=== PATIENT | female | born 1955 | race Caucasian/White ===

== ENCOUNTER 2016-09-29 08:00 | Day surgery (SDC) | payer MEDICARE, OTHER ==
[2016-09-23 15:43] VITALS: BMI 52.4
--- NOTE | 2016-09-29 07:41 | P.GSHP ---
History of Present Illness H&P Date: 09/29/16 CHIEF COMPLAINT: Colon cancer. HISTORY OF PRESENT ILLNESS: The patient is a 60-year-old female who has personal history of stage III colon cancer diagnosed, 2 years ago status post resection. Lower endoscopy was offered for further evaluation and management. PAST MEDICAL HISTORY: Please see list. PAST SURGICAL HISTORY: Please see list. MEDICATIONS: Please see list. ALLERGIES: Please see list. SOCIAL HISTORY: No illicit drug use FAMILY HISTORY: No reports of Crohn disease or ulcerative colitis. REVIEW OF ORGAN SYSTEMS: CONSTITUTIONAL: No reports of fevers or chills. PHYSICAL EXAM: VITAL SIGNS: Stable GENERAL: Well-developed pleasant in no acute distress. HEENT: No scleral icterus. Extraocular movements grossly intact. Moist buccal mucosa. NECK: Supple without lymphadenopathy. CHEST: Unlabored respirations. Equal bilateral excursions. CARDIOVASCULAR: Regular rate and rhythm. Distal 2+ pulses. ABDOMEN: Soft, nontender, nondistended. MUSCULOSKELETAL: No clubbing, cyanosis, or edema. ASSESSMENT: 1. Colon cancer surveillance. PLAN: 1. Recommend proceeding with a lower endoscopy Past Medical History Past Medical History: Cancer, Heart Failure, Fibromyalgia, GERD/Reflux, Hypertension, Liver Disease, Osteoarthritis (OA), Seizure Disorder, Sleep Apnea/ CPAP/BIPAP Additional Past Medical History / Comment(s): HX BRADYCARDIA. HX HEP C 1998. HX MIGRAINE. HX SEIZURE, LAST ONE 2002 (states she feels it was from prozac). OCCIPITAL NERVE DAMAGE PER MRI. HX CERVICAL/UTERINE CA; RECENT COLON CA AUG 2014-last chemo 03-27-15. UNABLE TO USE CPAP. osteoporosis History of Any Multi-Drug Resistant Organisms: None Reported Past Surgical History: Bowel Resection, Cholecystectomy, Hysterectomy, Orthopedic Surgery Additional Past Surgical History / Comment(s): RT FOOT BONE SPUR, L KNEE MENISCUS SX, RT INDEX FINGER TENDON REPAIR. COLON RESECTION 09/03/14. lt power port placement & removed,rt power port inserted and removed Past Anesthesia/Blood Transfusion Reactions: No Reported Reaction, Family History of Problems w/ Anesthesia Additional Past Anesthesia/Blood Transfusion Reaction / Comment(s): pt herself has no problems with anethesia, CORRINE AND MOTHER GET SEVERE PONV. Past Psychological History: Anxiety Smoking Status: Former smoker Past Alcohol Use History: None Reported Additional Past Alcohol Use History / Comment(s): QUIT SMOKING 1980,STARTED SMOKING 1967 ON AND OFF Past Drug Use History: None Reported Additional Drug Use History / Comment(s): STATES PAST HX OF STREET DRUG ABUSE, LAST USED IN 1980 - Past Family History Mother Family Medical History: Cancer Additional Family Medical History / Comment(s): THYROID, BREAST,LUNG,BONE,BRAIN Daughter(s) Family Medical History: Cancer Additional Family Medical History / Comment(s): UTERINE, CERVICAL Medications and Allergies Home Medications Medication Instructions Recorded Confirmed Type LORazepam [Ativan] 0.5 mg PO BID 08/29/14 09/23/16 History Lisinopril [Prinivil] 20 mg PO HS 08/29/14 09/23/16 History Topiramate [Topamax] 25 mg PO BID 08/29/14 09/23/16 History Sucralfate [Carafate] 1 gm PO BID 04/03/15 09/23/16 History Amitriptyline HCl [Elavil] 25 mg PO HS 09/01/15 09/23/16 History Furosemide [Lasix] 20 mg PO DAILY 09/01/15 09/23/16 History Cholecalciferol [Vitamin D3] 1,000 unit PO HS 09/22/15 09/23/16 History Magnesium 200 mg PO HS 09/23/16 09/23/16 History Allergies Allergy/AdvReac Type Severity Reaction Status Date / Time fluoxetine Allergy WGT GAIN, Verified 09/23/16 15:29 CONFUSION, NAUSEA gabapentin Allergy Confusion,and Verified 09/23/16 15:29 weight gain methylphenidate HCl Allergy Confusion Verified 09/23/16 15:29 [From Concerta] and wt gain pregabalin [From Lyrica] Allergy Confusion,a Verified 09/23/16 15:29 ggresion
[~2016-09-29 08:00] MED LIST: LACTATED RINGERS 1,000 ML IV SCH
[2016-09-29] MEDS ORDERED: LIDOCAINE 1% 20 ML VIAL (10MG/ML) FOR IV START INTRADERMA ONE (08:22)
[2016-09-29 08:30] VITALS: TEMP 97
[2016-09-29] MEDS ORDERED: LIDOCAINE 1% INJ 10MG/ML (20 ML MDV) ONE (08:42)
[2016-09-29] MEDS ORDERED: PROPOFOL 10 MG/ML 20 ML VIAL IV ONE (08:42)
[2016-09-29] MEDS ORDERED: MIDAZOLAM 2 MG/2 ML VIAL ONE (08:42)
--- NOTE | 2016-09-29 09:14 | P.PCN ---
Date of Procedure: 09/29/16 Description of Procedure: PREOPERATIVE DIAGNOSIS: History of stage III colon cancer, transverse colon, status post resection, 2014. POSTOPERATIVE DIAGNOSIS: History of stage III colon cancer, transverse colon, status post resection, 2014. Diverticulosis, scattered. OPERATION: Colonoscopy to the ileocecal valve and appendiceal orifice. SURGEON: Colleen Mackenzie MD. ANESTHESIA: MAC. INDICATIONS: The patient is a 60-year-old female who presents with history of stage III colon cancer along the transverse mesocolon resected in August 2014. She now presents for colon surveillance. Her last colonoscopy was 1 year ago. Benefits and risks were described and informed consent was obtained. DESCRIPTION OF PROCEDURE: The patient had undergone Gatorade, MiraLAX and Dulcolax prep. She had been brought into the operating room and laid in the left lateral decubitus position. After adequate intravenous sedation, the rectum was examined with 2% lidocaine jelly. No external hemorrhoids were encountered. The rectal tone was within normal limits. No lesions were palpated in the rectal vault. An Olympus colonoscope was advanced until the ileocecal valve and appendiceal orifice were clearly viewed. The prep was fair with liquid stools. Irrigation was needed to have clear visualization of the mucosal folds. The scope was removed with visualization of each mucosal fold. Scattered diverticulosis was encountered. No colonic polyps were found. No recurrence found along her anastomosis. Retroflexion of the scope demonstrated grade 1 internal hemorrhoids without active bleeding or inflammation. The colon was desufflated. The patient had tolerated the procedure well. Withdrawal time was over 6 minutes. FINDINGS: Internal hemorrhoids, grade 1 No external prolapsed hemorrhoids. No arteriovenous malformations. No adenomatous polyps. Scattered diverticulosis. No focal colitis. RECOMMENDATIONS: Lower endoscopy in one year, 2018. Plan - Discharge Summary Discharge Medication List LORazepam [Ativan] 0.5 mg PO BID 08/29/14 [History] Lisinopril [Prinivil] 20 mg PO HS 08/29/14 [History] Topiramate [Topamax] 25 mg PO BID 08/29/14 [History] Sucralfate [Carafate] 1 gm PO BID 04/03/15 [History] Furosemide [Lasix] 20 mg PO DAILY 09/01/15 [History] Cholecalciferol [Vitamin D3] 1,000 unit PO HS 09/22/15 [History] HYDROcodone/APAP 7.5-325MG [[place] 7.5-325] 1 each PO Q4H PRN #60 tab 10/03/15 [ Rx] Magnesium 200 mg PO HS 09/23/16 [History] Nortriptyline HCl [Pamelor] 25 mg PO HS 09/29/16 [History] Follow up Appointment(s)/Referral(s): Colleen Mackenzie MD [STAFF PHYSICIAN] - As Needed Patient Instructions/Handouts: *Surgery [facility] - (Anesthesia) Endoscopy Discharge Instructions Activity/Diet/Wound Care/Special Instructions: Follow-up colonoscopy in one year, 2018. Discharge Disposition: HOME SELF-CARE
[2016-09-29 09:18] VITALS: RESP 18
[2016-09-29 09:32] VITALS: BP 113/69; PULSE 72
== END 2016-09-29 09:48 | disposition home or self-care (01) ==
LOC: ORWHC2ENDO 08:00
PROVIDERS: ATTEND Surgery Plastic and Reconstructive Surgery
DX: Z12.11 Encounter for screening for malignant neoplasm of colon (principal); K57.30 Diverticulosis of large intestine without perforation or abscess without bleeding; K64.0 First degree hemorrhoids; K21.9 Gastro-esophageal reflux disease without esophagitis; I11.0 Hypertensive heart disease with heart failure; I50.9 Heart failure, unspecified; F41.9 Anxiety disorder, unspecified; G40.909 Epilepsy, unspecified, not intractable, without status epilepticus; Z85.038 Personal history of other malignant neoplasm of large intestine; Z88.8 Allergy status to other drugs, medicaments and biological substances; Z79.899 Other long term (current) drug therapy; Z87.891 Personal history of nicotine dependence; Z90.49 Acquired absence of other specified parts of digestive tract; Z98.0 Intestinal bypass and anastomosis status

== ENCOUNTER → 2016-11-09 | Outpatient (CLI) | payer MEDICARE, OTHER ==
--- NOTE | 2016-11-09 14:39 | CT ---
EXAMINATION TYPE: CT abdomen pelvis wo con DATE OF EXAM: 11/09/2016 2:33 PM COMPARISON: 05/13/2016 HISTORY: N28.[address] DLP: 3299.6 mGycm FINDINGS: LUNG BASES: Small stable 4 mm nodule lateral right middle lobe. No evidence for infiltrate. LIVER/GB: The gallbladder is surgically absent. Mild hepatic steatosis identified. No space-occupying hepatic lesion. PANCREAS: No pancreatic mass identified. No inflammatory process seen. SPLEEN: No evidence for splenomegaly. No intrasplenic lesions seen. ADRENALS: No adrenal nodules identified. No evidence for thickening. KIDNEYS: Large cyst upper pole right kidney measuring 7.5 cm. No nephrolithiasis. No hydronephrosis. BOWEL: Postsurgical reanastomosis at the level of the splenic flexure. No evidence of bowel obstructi on or recurrent mass. Appendix has a normal appearance. No evidence of bowel obstruction. No inflamma tory process. Lymph nodes: No evidence for adenopathy greater than 1 cm. Abdominal aorta: Atheromatous changes seen. No evidence for aneurysm. Genital organs: Hysterectomy changes noted. Other: No significant abnormality. IMPRESSION: 1. LARGE RIGHT RENAL CYST IS STABLE. 2. FATTY LIVER. 3. STABLE RIGHT MIDDLE LOBE PULMONARY NODULE.
== END | disposition home or self-care (01) ==
LOC: RADCTMAIN 14:09
PROVIDERS: ATTEND Surgery Plastic and Reconstructive Surgery
DX: N28.1 Cyst of kidney, acquired (principal); K76.0 Fatty (change of) liver, not elsewhere classified
CPT/HCPCS: 74176

== ENCOUNTER → 2016-11-09 | Outpatient (CLI) | payer MEDICARE, OTHER ==
--- NOTE | 2016-11-17 10:40 | MM ---
Reason for exam: screening (asymptomatic). Baseline mammogram. History: Patient is postmenopausal and has history of other cancer at age 39. Family history of breast cancer in aunt at age 50. Physical Findings: A clinical breast exam by your physician is recommended on an annual basis and results should be correlated with mammographic findings. MG 3D Screening Mammo W/Cad Bilateral CC and MLO view(s) were taken. Prior study comparison: August 22, 2015, mammogram, performed at [facility]. The breast tissue is heterogeneously dense. This may lower the sensitivity of mammography. Benign calcifications. There is no dominant lesion. There is chronic nodularity bilaterally. No significant changes when compared with prior studies. ASSESSMENT: Benign, BI-RAD 2 RECOMMENDATION: Routine screening mammogram of both breasts in 1 year.
== END | disposition home or self-care (01) ==
LOC: RADMAMWWP 14:32
PROVIDERS: ATTEND Internal Medicine
DX: Z12.31 Encounter for screening mammogram for malignant neoplasm of breast (principal)
CPT/HCPCS: 77063; G0202

== ENCOUNTER → 2017-04-29 | Outpatient (CLI) | payer MEDICARE, OTHER ==
--- NOTE | 2017-04-29 11:44 | CT ---
EXAMINATION TYPE: CT chest w con DATE OF EXAM: 04/29/2017 COMPARISON: CT chest abdomen and pelvis May 12, 2015 HISTORY: Solitary pulmonary nodule CT DLP: 2208.60 mGycm. Automated Exposure Control for Dose Reduction was Utilized. TECHNIQUE: CT scan of the thorax is performed following with IV Contrast, patient injected with 100 ml mL of Omnipaque 300. FINDINGS: LUNGS: There is stable 5 mm nodule right middle lobe on axial image 30. There is stable calcified 5 mm nodule left upper lobe on axial image 23. There is no new suspicious noncalcified mass or nodule. There is no pleural effusion or pneumothorax seen. The tracheobronchial tree is patent. MEDIASTINUM: There are no greater than 1 cm hilar or mediastinal lymph nodes. No cardiomegaly or pe ricardial effusion is seen. OTHER: Multiple cholecystectomy clips are seen. There is nearly 7 cm simple appearing cyst upper pole level right kidney redemonstrated. There is fairly moderate multilevel spurring in the visualized mi d thoracic spine. IMPRESSION: Stable 5 mm noncalcified nodule left upper lobe. Given documentation of 2 years stability and benign etiology or postinflammatory etiology is confirmed.
== END | disposition home or self-care (01) ==
LOC: RADCTMAIN 10:01
PROVIDERS: ATTEND Internal Medicine Critical Care Medicine
DX: R91.1 Solitary pulmonary nodule (principal); Z88.8 Allergy status to other drugs, medicaments and biological substances
CPT/HCPCS: 71260; Q9967

== ENCOUNTER → 2017-07-07 | Outpatient (CLI) | payer MEDICARE, OTHER ==
[2017-07-07 11:11] VITALS: BP 138/79; PULSE 88; RESP 20; TEMP 98.1; BMI 56.3
[2017-07-07 12:51] LABS: HCT 42.7 % (34.0-46.0); MCHC 32.8 g/dL (31.0-37.0); MCV 91.4 fL (80.0-100.0); Platelet Count 214 k/uL (150-450); RBC 4.67 m/uL (3.80-5.40); RDW 14.7 % (11.5-15.5); WBC 7.3 k/uL (3.8-10.6)
[2017-07-07 13:09] LABS: ALT 44 U/L (9-52); AST 32 U/L (14-36); Albumin 4.3 g/dL (3.5-5.0); Alkaline Phosphatase 77 U/L (38-126); Anion Gap 10 mmol/L; Blood Urea Nitrogen 14 mg/dL (7-17); Carbon Dioxide 26 mmol/L (22-30); Chloride 106 mmol/L (98-107); Cholesterol 171 mg/dL (<200); Glucose 85 mg/dL (74-99); HDL Cholesterol 45 mg/dL (40-60); LDL Cholesterol,Calculated 86 mg/dL (0-99); Sodium 142 mmol/L (137-145); Total Bilirubin 0.7 mg/dL (0.2-1.3); Total Protein 7.3 g/dL (6.3-8.2); Triglycerides 198 mg/dL (<150)
[2017-07-07 18:36] LABS: Iron Saturation 13.93 (12.00-45.00)
[2017-07-07 18:49] LABS: Vitamin D 25 Hydroxy 20.7 ng/mL (30.0-100.0)
[2017-07-07 18:56] LABS: Folate, Serum 14.3 ng/mL
[2017-07-07 22:29] LABS: Hemoglobin A1C 5.4 % (4.0-6.0)
--- NOTE | 2017-08-23 05:35 | P.HPBAR ---
Bariatric H&P - History & Physicial H&P Date: 07/07/17 History & Physicial: Visit/CC: pursuing RY Patient initial contact: 05/28/17 Initial weight: 140.84 kg Initial weight in pounds: 310.50 Height: 5 ft 2.25 in Initial BMI: 56.3 Last weight: Current weight: 140.84 kg Current weight in pounds: 310.50 Current BMI: 56.3 [place] body weight (based on NIH guidelines): 50.462 kg Excess body weight loss: 0.0% The patient is a 61 year-old F who presents for Bariatric Assessment. DATE OF SERVICE: 07/07/2017 REASON FOR CONSULTATION: Initial bariatric evaluation. HISTORY OF PRESENT ILLNESS: Lyndsay Morales is a 61-year-old male who comes in morbid obesity. Most of her adult life she was 117 pounds. Weight gain became prominent after depression and . She reports developing high blood pressure, osteoarthritis of the lower back including hips and knees and obstructive sleep apnea as a result of her obesity. She is looking into the gastric bypass. Her personal goal is to get down to 150 290 pounds. No family history of stomach or esophageal cancer. No reports of food ALLERGIES. No reports of Crohn's disease or ulcer colitis. She has a family history of obesity. She reports severe chronic lower back pain including hip pain and bilateral knee pain. She has undergone medical supervised weight loss including multiple attempts of weight loss in the past 5 years. Most weight loss has been over 40 pounds however now she has regained. She presents for her initial assessment. At height of 5 feet 2.25 inches, his ideal body weight is 135 pounds. She comes in 310 pounds. Her body mass index is 56.3. He is 175 pounds overweight. PAST MEDICAL HISTORY: 1. Morbid obesity. 2. Body mass index of 56.6 3. Osteoarthritis of the knees. 4. Osteoarthritis of the hips. 5. Osteoarthritis of the lower back. 6. Obstructive sleep apnea. 7. Hypertensive heart disease. 8. Heart failure. 9. Fibromyalgia. 10. Uterine cancer. 11. Colon cancer. 12. Gastroesophageal reflux disease. 13. Diaphragmatic hiatal hernia. 14. Hepatitis C. 15. Seizure disorder. 16. Osteoporosis. 17. Bradycardia. 18. Migraines. 19. Anxiety. PAST SURGICAL HISTORY: 1. Colon resection. 2. Ventral hernia repair. 3. Hysterectomy. 4. Cholecystectomy. 5. EGD. 6. Colonoscopy. 7. Left meniscus knee surgery. 8. Right index tendon repair. 9. Right bone spur. 10. History of chemotherapy. HOME MEDICATIONS: 1. Topamax. 2. Carafate. 3. Nortriptyline. 4. Magnesium. 5. Prinivil. 6. Ativan. 7. [place]. 8. Lasix. 9. Vitamin D. ALLERGIES: 1. Fluoxetine. 2. Gabapentin. 3. Lyrica. 4. Methylphenidate. SOCIAL HISTORY: No active tobacco use. Past IV drug abuse. FAMILY HISTORY: No family history of ulcerative colitis disease or Crohn's disease. Family history of morbid obesity. No reports of stomach or esophageal cancer. Family history of breast, lung, bone, brain, thyroid cancer. REVIEW OF ORGAN SYSTEMS: CONSTITUTIONAL: At height of 5 feet 2.25 inches, his ideal body weight is 135 pounds. She comes in 310 pounds. Her body mass index is 56.3. He is 175 pounds overweight. HEENT: Denies any active troubles with vision or hearing. No troubles with swallowing. ENDOCRINE: No diabetes. No hypothyroidism. CARDIOVASCULAR: History of congestive heart failure including bradycardia. RESPIRATORY: Has obstructive sleep apnea. Has difficulty with CPAP machine. Recent pneumonias. GI: Denies any bright red blood per rectum. Past history of colon cancer. MUSCULOSKELETAL: Has lower back pain and joint pain. Has osteoarthritis of the knees. NEURO: History of headaches including migraines and she is disorder. PSYCH: History of anxiety including fibromyalgia. RHEUMATOLOGIC: No lupus. No rheumatoid arthritis. HEMATOLOGIC: Denies any abnormal bleeding or bruising. No personal history of DVTs. SKIN: No rash. No skin cancer. PHYSICAL EXAM: VITAL SIGNS: Height 5 foot 2.25 inches, weight 310 pounds. BMI 56.3 Vital Signs Temp 98.1 F 07/07/17 11:02 Pulse 88 07/07/17 11:02 Resp 20 07/07/17 11:02 BP 138/79 07/07/17 11:02 Pulse Ox GENERAL: Well-developed in no acute distress. HEENT: No scleral icterus. Extraocular movements grossly intact. Hears conversational speech. No nasal drainage. NECK: Supple without lymphadenopathy. CHEST: Nonlabored respirations with equal bilateral excursions. CARDIOVASCULAR: Regular rate and regular rhythm. Distal 2+ pulses. ABDOMEN: Obese, soft, nondistended. Tender along the epigastrium. MUSCULOSKELETAL: No clubbing, cyanosis. Gross strength 5/5 distal lower extremities. 1+ pre-tibial pitting edema. NEURO: No focal or lateralizing signs. Cranial nerves 2 through 12 grossly within normal limits. PSYCH: Appropriate affect. Alert and oriented to person, place and time. SKIN: Good skin turgor. Well perfused. STUDIES: Recent CT of the abdomen and pelvis demonstrating no recurrent abdominal wall hernias. No evidence of bowel obstruction. ASSESSMENT: 1. Morbid obesity. 2. Body mass index of 56.6 3. Osteoarthritis of the knees. 4. Osteoarthritis of the hips. 5. Osteoarthritis of the lower back. 6. Obstructive sleep apnea. 7. Hypertensive heart disease. 8. Heart failure. 9. Fibromyalgia. 10. Uterine cancer. 11. Colon cancer. 12. Gastroesophageal reflux disease. 13. Diaphragmatic hiatal hernia. 14. Hepatitis C. 15. Seizure disorder. 16. Osteoporosis. 17. Bradycardia. 18. Migraines. 19. Anxiety. 20. History of peritoneal adhesions. PLAN: 1. Surgical options including a band, gastric bypass, sleeve gastrectomy were described in detail. Alternatives such as gastric balloon including duodenal switch were described. 2. The [place] bariatric surgical collaborative data and outcomes calculator were described with surgical options. 3. Recommend a bariatric metabolic panel to evaluate for micro- including macronutrient deficiencies. 4. For history of daytime somnolence, recommend evaluation and treatment for sleep apnea. 5. Dietary surveillance and counseling was reviewed, I have asked increased protein intake to at least 50 grams daily. 6. Will need cardiac risk assessment. 7. Recommend medical risk assessment. 8. Psych assessment per insurance guidelines. 9. Follow up upon completion of upper endoscopy. 10. Recommend 12-lead EKG. 11. Recommend upper endoscopy. 12. Additionally, patient has history of multiple abdominal surgeries as well as peritoneal adhesions. Recommend potential diagnostic laparoscopy and lysis of adhesions prior to her bariatric procedure of choice, gastric bypass. Thank you for this consultation. Past Medical History Past Medical History: Cancer, Heart Failure, Fibromyalgia, GERD/Reflux, Hypertension, Liver Disease, Osteoarthritis (OA), Seizure Disorder, Sleep Apnea/ CPAP/BIPAP Additional Past Medical History / Comment(s): HX BRADYCARDIA. HX HEP C 1998. HX MIGRAINE. HX SEIZURE, LAST ONE 2002 (states she feels it was from prozac). OCCIPITAL NERVE DAMAGE PER MRI. HX CERVICAL/UTERINE CA; RECENT COLON CA AUG 2014-last chemo 03-27-15. UNABLE TO USE CPAP. osteoporosis History of Any Multi-Drug Resistant Organisms: None Reported Past Surgical History: Bowel Resection, Cholecystectomy, Hysterectomy, Orthopedic Surgery Additional Past Surgical History / Comment(s): RT FOOT BONE SPUR, L KNEE MENISCUS SX, RT INDEX FINGER TENDON REPAIR. COLON RESECTION 09/03/14. lt power port placement & removed,rt power port inserted and removed Past Anesthesia/Blood Transfusion Reactions: No Reported Reaction, Family History of Problems w/ Anesthesia Additional Past Anesthesia/Blood Transfusion Reaction / Comm: pt herself has no problems with anethesia, CORRINE AND MOTHER GET SEVERE PONV. Smoking Status: Former smoker - Past Family History Mother Family Medical History: Cancer Additional Family Medical History / Comment(s): THYROID, BREAST,LUNG,BONE,BRAIN Daughter(s) Family Medical History: Cancer Additional Family Medical History / Comment(s): UTERINE, CERVICAL Surgical - Exam Vital Signs Temp Pulse Resp BP 98.1 F 88 20 138/79 07/07/17 11:02 07/07/17 11:02 07/07/17 11:02 07/07/17 11:02 Results - Labs 07/07/17 12:14 07/07/17 12:14 Bariatric Checklist Checklist: Plan: Checklist: EGD: 1. Hiatal hernia: 2. H. Pylori: HgbA1c: Vitamin D: Smoking: Former smoker Primary care physician referral: Dr Ladd Psychiatry clearance: Cardiology clearance: Sleep study: Diet journal: VTE risk score: VTE risk level: Rehab needs at discharge:
== END | disposition home or self-care (01) ==
LOC: BARWHC3 09:57
PROVIDERS: ATTEND Surgery Plastic and Reconstructive Surgery
DX: E66.01 Morbid (severe) obesity due to excess calories (principal); M17.0 Bilateral primary osteoarthritis of knee; M47.9 Spondylosis, unspecified; M16.0 Bilateral primary osteoarthritis of hip; G47.33 Obstructive sleep apnea (adult) (pediatric); I11.0 Hypertensive heart disease with heart failure; I50.9 Heart failure, unspecified; M79.7 Fibromyalgia; C55 Malignant neoplasm of uterus, part unspecified; C18.9 Malignant neoplasm of colon, unspecified; K21.9 Gastro-esophageal reflux disease without esophagitis; K44.9 Diaphragmatic hernia without obstruction or gangrene; B19.20 Unspecified viral hepatitis C without hepatic coma; G40.909 Epilepsy, unspecified, not intractable, without status epilepticus; M81.0 Age-related osteoporosis without current pathological fracture; E44.0 Moderate protein-calorie malnutrition; D50.8 Other iron deficiency anemias; R00.1 Bradycardia, unspecified; E55.9 Vitamin D deficiency, unspecified; E11.9 Type 2 diabetes mellitus without complications; G43.909 Migraine, unspecified, not intractable, without status migrainosus; F41.9 Anxiety disorder, unspecified; Z87.19 Personal history of other diseases of the digestive system; Z90.49 Acquired absence of other specified parts of digestive tract; Z92.21 Personal history of antineoplastic chemotherapy; Z98.890 Other specified postprocedural states; Z79.899 Other long term (current) drug therapy; Z79.891 Long term (current) use of opiate analgesic; Z88.8 Allergy status to other drugs, medicaments and biological substances; Z99.89 Dependence on other enabling machines and devices; Z87.891 Personal history of nicotine dependence; E89.1 Postprocedural hypoinsulinemia; Z68.43 Body mass index [BMI] 50.0-59.9, adult
CPT/HCPCS: 84425; 80061; 80053; 82607; 82728; 82746; 83540; 83550; 84443; 85027; 82306; 83036; 93005; 36415; G0463; 99201

== ENCOUNTER 2017-08-31 08:32 | Day surgery (SDC) | payer MEDICARE, OTHER ==
[2017-08-26 14:14] VITALS: BMI 57.9
[~2017-08-31 08:32] MED LIST changes: +LIDOCAINE 1% 20 ML VIAL (10MG/ML) FOR IV START INTRADERMA PRN
--- NOTE | 2017-08-31 08:57 | P.GSHP ---
History of Present Illness H&P Date: 08/31/17 CHIEF COMPLAINT: GERD HISTORY OF PRESENT ILLNESS: The patient is a 61-year-old female who presents reports gastroesophageal reflux disease. Upper endoscopy was offered for further evaluation and management. PAST MEDICAL HISTORY: Please see list. PAST SURGICAL HISTORY: Please see list. MEDICATIONS: Please see list. ALLERGIES: Please see list. SOCIAL HISTORY: No illicit drug use FAMILY HISTORY: No reports of Crohn disease or ulcerative colitis. REVIEW OF ORGAN SYSTEMS: CONSTITUTIONAL: No reports of fevers or chills. GI: Denies any blood in stools or constipation. PHYSICAL EXAM: VITAL SIGNS: Stable GENERAL: Well-developed and pleasant in no acute distress. HEENT: No scleral icterus. Extraocular movements grossly intact. Moist buccal mucosa. NECK: Supple without lymphadenopathy. CHEST: Unlabored respirations. Equal bilateral excursions. CARDIOVASCULAR: Regular rate and rhythm. Distal 2+ pulses. ABDOMEN: Soft, nondistended. MUSCULOSKELETAL: No clubbing, cyanosis, or edema. ASSESSMENT: 1. Gastroesophageal reflux disease PLAN: 1. Recommend proceeding with an upper endoscopy Past Medical History Past Medical History: Cancer, Heart Failure, Fibromyalgia, GERD/Reflux, Hypertension, Liver Disease, Osteoarthritis (OA), Sleep Apnea/CPAP/BIPAP Additional Past Medical History / Comment(s): HX BRADYCARDIA AND TACHYCARDIA, HX HEP C 1998. HX MIGRAINE. ONE SEIZURE 2002 (states she feels it was from prozac). OCCIPITAL NERVE DAMAGE PER MRI. HX CERVICAL/UTERINE CA; COLON CA AUG 2014-last chemo 03-27-15. UNABLE TO USE CPAP. osteoporosis History of Any Multi-Drug Resistant Organisms: None Reported Past Surgical History: Bowel Resection, Cholecystectomy, Hernia Repair, Hysterectomy, Orthopedic Surgery Additional Past Surgical History / Comment(s): RT FOOT BONE SPUR, L KNEE MENISCUS SX, RT INDEX FINGER TENDON REPAIR. lt power port placement & removed, rt power port inserted and removed Past Anesthesia/Blood Transfusion Reactions: Family History of Problems w/ Anesthesia Additional Past Anesthesia/Blood Transfusion Reaction / Comment(s): DAUGHTER AND MOTHER GET SEVERE PONV. Smoking Status: Former smoker - Past Family History Mother Family Medical History: Cancer Additional Family Medical History / Comment(s): LUNG,BONE,BRAIN Daughter(s) Family Medical History: Cancer Additional Family Medical History / Comment(s): UTERINE, CERVICAL Medications and Allergies Home Medications Medication Instructions Recorded Confirmed Type LORazepam [Ativan] 0.5 mg PO BID 08/29/14 08/26/17 History Lisinopril [Prinivil] 20 mg PO HS 08/29/14 08/26/17 History Topiramate [Topamax] 25 mg PO BID 08/29/14 08/26/17 History Sucralfate [Carafate] 1 gm PO BID 04/03/15 08/26/17 History Furosemide [Lasix] 20 mg PO DAILY 09/01/15 08/26/17 History Magnesium 200 mg PO HS 09/23/16 08/26/17 History Nortriptyline HCl [Pamelor] 25 mg PO HS 09/29/16 08/26/17 History Cholecalciferol [Vitamin D3] 5,000 unit PO BID 08/26/17 08/26/17 History Fluticasone Nasal [place] [Flonase 1 spray EA NOSTRIL DAILY PRN 08/26/17 08/26/17 History Nasal [place]] HYDROcodone/APAP 7.5-325MG [[place] 1 each PO Q8H PRN 08/26/17 08/26/17 History 7.5-325] Allergies Allergy/AdvReac Type Severity Reaction Status Date / Time fluoxetine Allergy WGT GAIN, Verified 08/26/17 14:05 CONFUSION, NAUSEA gabapentin Allergy Confusion,and Verified 08/26/17 14:05 weight gain methylphenidate HCl Allergy Confusion Verified 08/26/17 14:05 [From Concerta] and wt gain pregabalin [From Lyrica] Allergy Confusion,a Verified 08/26/17 14:05 ggresion
[2017-08-31 09:25] VITALS: TEMP 97
[2017-08-31] MEDS ORDERED: PROPOFOL 10 MG/ML 20 ML VIAL IV ONE (09:45)
[2017-08-31] MEDS ORDERED: LIDOCAINE 1% INJ 10MG/ML (20 ML MDV) ONE (09:45)
--- NOTE | 2017-08-31 10:07 | P.PCN ---
Date of Procedure: 08/31/17 Description of Procedure: PREOPERATIVE DIAGNOSIS: Gastroesophageal reflux disease. Morbid obesity. POSTOPERATIVE DIAGNOSIS: Morbid obesity. Gastritis. Gastroesophageal reflux disease. Diaphragmatic hiatal hernia without obstruction. OPERATION: Esophagogastroduodenoscopy with biopsies along antrum. SURGEON: Colleen Mackenzie MD ANESTHESIA: MAC. INDICATIONS: The patient is a 61-year-old female who presents with a history of reflux disease. Benefits and risks of the procedure were described. Informed consent was obtained. DESCRIPTION: The patient was brought into the endoscopy suite and laid in the left lateral decubitus position. An Olympus gastroscope was passed along the posterior oropharynx down to the distal esophagus where the squamocolumnar junction was encountered at 38 cm from the incisors. The stomach was entered and no bile reflux was found. Additional findings are listed below. Biopsies with cold forceps were obtained of the antrum. The first through third portion of the duodenum was examined and unremarkable. Retroflexion of the scope confirmed Hill grade 3 lower esophageal valve. The squamocolumnar junction demostrated LA grade A erosive esophagitis. The stomach was desufflated. The patient tolerated the procedure well. FINDINGS: Squamocolumnar junction 38 cm from the incisors. Diaphragmatic hiatus at 40 cm. Hiatal hernia 2 cm, fixed. Hill grade 3 lower esophageal valve. LA grade A erosive esophagitis. Active gastritis. No active duodenitis. RECOMMENDATIONS: Continue medical therapy. Further recommendations pending results of pathology report. Upper endoscopy as needed. Will benefit from antireflux surgical procedure Plan - Discharge Summary New Discharge Prescriptions: No Action Topiramate [Topamax] 25 mg PO BID Lisinopril [Prinivil] 20 mg PO HS LORazepam [Ativan] 0.5 mg PO BID Sucralfate [Carafate] 1 gm PO BID Furosemide [Lasix] 20 mg PO DAILY Magnesium 200 mg PO HS Nortriptyline HCl [Pamelor] 25 mg PO HS HYDROcodone/APAP 7.5-325MG [Wellington 7.5-325] 1 each PO Q8H PRN PRN Reason: Pain Cholecalciferol [Vitamin D3] 5,000 unit PO BID Discharge Medication List LORazepam [Ativan] 0.5 mg PO BID 08/29/14 [History] Lisinopril [Prinivil] 20 mg PO HS 08/29/14 [History] Topiramate [Topamax] 25 mg PO BID 08/29/14 [History] Sucralfate [Carafate] 1 gm PO BID 04/03/15 [History] Furosemide [Lasix] 20 mg PO DAILY 09/01/15 [History] Magnesium 200 mg PO HS 09/23/16 [History] Nortriptyline HCl [Pamelor] 25 mg PO HS 09/29/16 [History] Cholecalciferol [Vitamin D3] 5,000 unit PO BID 08/26/17 [History] HYDROcodone/APAP 7.5-325MG [Wellington 7.5-325] 1 each PO Q8H PRN 08/26/17 [History]
[2017-08-31 10:22] VITALS: BP 120/70; PULSE 70; RESP 18
== END 2017-08-31 10:39 | disposition home or self-care (01) ==
LOC: ORWHC2ENDO 08:32
PROVIDERS: ATTEND Surgery Plastic and Reconstructive Surgery
DX: K22.10 Ulcer of esophagus without bleeding (principal); K21.9 Gastro-esophageal reflux disease without esophagitis; K44.9 Diaphragmatic hernia without obstruction or gangrene; M79.7 Fibromyalgia; I11.0 Hypertensive heart disease with heart failure; Z88.8 Allergy status to other drugs, medicaments and biological substances; I50.9 Heart failure, unspecified; Z87.891 Personal history of nicotine dependence; Z85.038 Personal history of other malignant neoplasm of large intestine; Z85.41 Personal history of malignant neoplasm of cervix uteri; Z86.19 Personal history of other infectious and parasitic diseases; Z79.899 Other long term (current) drug therapy; E66.01 Morbid (severe) obesity due to excess calories; Z68.43 Body mass index [BMI] 50.0-59.9, adult
CPT/HCPCS: 88305; 88342; 43239; J2001; J2704

== ENCOUNTER → 2017-10-05 | Outpatient (CLI) | payer MEDICARE, OTHER ==
[2017-10-05 15:25] VITALS: BP 129/81; PULSE 78; RESP 15; TEMP 97.7; BMI 56.9
--- NOTE | 2017-11-17 17:56 | P.PN ---
Subjective Progress Note Date: 10/05/17 DATE OF SERVICE: 10/05/2017 CHIEF COMPLAINT: Bariatric evaluation HISTORY OF PRESENT ILLNESS: Lyndsay Morales is a 61-year-old male who initially Presented [facility]ariatric [facility]tr., June 2017. Over 5-6 years she has undergone medical supervised weight loss. As a result of her morbid obesity, she developed obstructive sleep apnea including hypertensive heart disease and diffuse osteoarthritis. She is also a colon cancer survivor. She completed an upper endoscopy. Also she completed a recent stress test. Now she presents for further evaluation and management. At height of 5 feet 2.25 inches, her ideal body weight is 135 pounds. She comes in 313 pounds. She gained 3 pounds in 3 months. Her body mass index is increased to 56.9 from 56.3. She is 178 pounds overweight. PAST MEDICAL HISTORY: 1. Morbid obesity. 2. Body mass index of 56.9 3. Osteoarthritis of the knees. 4. Osteoarthritis of the hips. 5. Osteoarthritis of the lower back. 6. Obstructive sleep apnea. 7. Hypertensive heart disease. 8. Heart failure. 9. Fibromyalgia. 10. Uterine cancer. 11. Colon cancer. 12. Gastroesophageal reflux disease. 13. Diaphragmatic hiatal hernia. 14. Hepatitis C. 15. Seizure disorder. 16. Osteoporosis. 17. Bradycardia. 18. Migraines. 19. Anxiety. PAST SURGICAL HISTORY: 1. Colon resection. 2. Ventral hernia repair. 3. Hysterectomy. 4. Cholecystectomy. 5. EGD. 6. Colonoscopy. 7. Left meniscus knee surgery. 8. Right index tendon repair. 9. Right bone spur. 10. History of chemotherapy. HOME MEDICATIONS: 1. Topamax. 2. Carafate. 3. Nortriptyline. 4. Magnesium. 5. Prinivil. 6. Ativan. 7. Rohwer. 8. Lasix. 9. Vitamin D. ALLERGIES: 1. Fluoxetine. 2. Gabapentin. 3. Lyrica. 4. Methylphenidate. SOCIAL HISTORY: No active tobacco use. Past IV drug abuse. FAMILY HISTORY: No family history of ulcerative colitis disease or Crohn's disease. Family history of morbid obesity. No reports of stomach or esophageal cancer. Family history of breast, lung, bone, brain, thyroid cancer. REVIEW OF ORGAN SYSTEMS: CONSTITUTIONAL: At height of 5 feet 2.25 inches, her ideal body weight is 135 pounds. She comes in 313 pounds. She gained 3 pounds in 3 months. Her body mass index is increased to 56.9 from 56.3. She is 178 pounds overweight. HEENT: Denies any active troubles with vision or hearing. No troubles with swallowing. ENDOCRINE: No diabetes. No hypothyroidism. CARDIOVASCULAR: History of congestive heart failure including bradycardia. RESPIRATORY: Has obstructive sleep apnea. Has difficulty with CPAP machine. No recent pneumonia. GI: Denies any bright red blood per rectum. Past history of colon cancer. MUSCULOSKELETAL: Has lower back pain and joint pain. Has osteoarthritis of the knees. NEURO: History of headaches including migraines and she is disorder. PSYCH: History of anxiety including fibromyalgia. RHEUMATOLOGIC: No lupus. No rheumatoid arthritis. HEMATOLOGIC: Denies any abnormal bleeding or bruising. No personal history of DVTs. SKIN: No rash. No skin cancer. PHYSICAL EXAM: VITAL SIGNS: Height 5 foot 2.25 inches, weight 313 pounds. BMI 56.9 Vital Signs Temp 97.7 F 10/05/17 13:27 Pulse 78 10/05/17 13:27 Resp 15 10/05/17 13:27 BP 129/81 10/05/17 13:27 Pulse Ox GENERAL: Well-developed in no acute distress. HEENT: No scleral icterus. Extraocular movements grossly intact. Hears conversational speech. No nasal drainage. NECK: Supple without lymphadenopathy. CHEST: Nonlabored respirations with equal bilateral excursions. CARDIOVASCULAR: Regular rate and regular rhythm. Distal 2+ pulses. ABDOMEN: Obese, soft, nondistended. Tender along the epigastrium. MUSCULOSKELETAL: No clubbing, cyanosis. Gross strength 5/5 distal lower extremities. NEURO: No focal or lateralizing signs. Cranial nerves 2 through 12 grossly within normal limits. PSYCH: Appropriate affect. Alert and oriented to person, place and time. SKIN: Good skin turgor. Well perfused. LABS: Reviewed. Triglycerides elevated. Vitamin D low. EKG: Reviewed. Normal sinus rhythm. EGD STUDIES: Squamocolumnar junction 38 cm from the incisors. Diaphragmatic hiatus at 40 cm. Hiatal hernia 2 cm, fixed. Hill grade 3 lower esophageal valve. LA grade A erosive esophagitis. Active gastritis. No active duodenitis. Final Pathologic Diagnosis GASTRIC ANTRUM, BIOPSY: MODERATE CHRONIC GASTRITIS WITH FOCAL ACTIVITY. SEE NOTE. ASSESSMENT: 1. Morbid obesity. 2. Body mass index of 56.9. 3. Osteoarthritis of the knees. 4. Osteoarthritis of the hips. 5. Osteoarthritis of the lower back. 6. Obstructive sleep apnea. 7. Hypertensive heart disease. 8. Heart failure. 9. Fibromyalgia. 10. Uterine cancer. 11. Colon cancer. 12. Gastroesophageal reflux disease. 13. Diaphragmatic hiatal hernia. 14. Hepatitis C. 15. Seizure disorder. 16. Osteoporosis. 17. Bradycardia. 18. Migraines. 19. Anxiety. 20. Hiatal hernia 21. Dietary surveillance and counseling 22. Peritoneal adhesions. 23. Vitamin D deficiency PLAN: 1. Recommend treatment for obstructive sleep apnea. Also recommend referral to sleep center. 2. She has completed cardiac risk assessment with a recent cardiac stress test. 3. She is pending primary care provider letter regarding history of obesity and medical supervised diet. 4. Recommend reduction of carbohydrates with increase of protein intake over 75 g daily. 5. Separately, she has history of persistent epigastric abdominal pain from a prior surgery. She poses risk for peritoneal adhesions and may benefit from laparoscopic lysis of adhesions. 6. Vitamin D supplement, 5,000 units daily.
== END | disposition home or self-care (01) ==
LOC: BARWHC3 10:34
PROVIDERS: ATTEND Surgery Plastic and Reconstructive Surgery
DX: E66.01 Morbid (severe) obesity due to excess calories (principal); M17.0 Bilateral primary osteoarthritis of knee; M16.0 Bilateral primary osteoarthritis of hip; M19.90 Unspecified osteoarthritis, unspecified site; G47.33 Obstructive sleep apnea (adult) (pediatric); I11.9 Hypertensive heart disease without heart failure; I50.9 Heart failure, unspecified; M79.7 Fibromyalgia; K21.9 Gastro-esophageal reflux disease without esophagitis; K44.9 Diaphragmatic hernia without obstruction or gangrene; C18.9 Malignant neoplasm of colon, unspecified; C55 Malignant neoplasm of uterus, part unspecified; B19.20 Unspecified viral hepatitis C without hepatic coma; G40.909 Epilepsy, unspecified, not intractable, without status epilepticus; M81.0 Age-related osteoporosis without current pathological fracture; R00.1 Bradycardia, unspecified; G43.909 Migraine, unspecified, not intractable, without status migrainosus; K66.0 Peritoneal adhesions (postprocedural) (postinfection); E55.9 Vitamin D deficiency, unspecified; Z71.3 Dietary counseling and surveillance; Z68.43 Body mass index [BMI] 50.0-59.9, adult; Z88.8 Allergy status to other drugs, medicaments and biological substances; Z79.891 Long term (current) use of opiate analgesic; Z79.899 Other long term (current) drug therapy
CPT/HCPCS: 99211

== ENCOUNTER → 2017-11-08 | Outpatient (CLI) | payer MEDICARE, OTHER ==
--- NOTE | 2017-11-08 13:17 | CT ---
EXAMINATION TYPE: CT abdomen pelvis w con DATE OF EXAM: 11/08/2017 HISTORY: Follow up colon cancer. No complaints at time of scan CT DLP: 3891.6mGycm Automated Exposure Control for Dose Reduction was Utilized. CONTRAST: CT scan of the abdomen and pelvis is performed with IV Contrast, patient injected with 100 mL of Isov ue 300. COMPARISON: 11/09/2016, 05/13/2016 and 05/12/2015 FINDINGS: LUNG BASES: Stable 4 mm right middle lobe pulmonary nodule unchanged dating back to thousand 15 and s hould be considered benign. Remainder the lung bases are unremarkable.. LIVER/GB: No focal liver lesion is appreciated. No intrahepatic biliary ductal dilatation. Gallbladde r is surgically absent. Portal vein appears patent. PANCREAS: Pancreas enhances homogeneously without ductal dilatation. SPLEEN: No significant abnormality is seen. ADRENALS: No significant abnormality is seen. KIDNEYS: There is redemonstration of a right upper pole partially exophytic 7.8 cm simple renal cyst. The remainder the kidneys enhance and excrete symmetrically without hydronephrosis. BOWEL: [place]-colonic anastomotic site is seen of the splenic flexure. No proximal dilatation or evide nce of stricture. There are scattered colonic diverticula without pericolonic fat stranding. Appendix is within normal limits. Small bowel is unremarkable. UTERUS/ADNEXA: Uterus is surgically absent. LYMPH NODES: No greater than 1cm abdominal or pelvic lymph nodes are appreciated. OSSEOUS STRUCTURES: No significant abnormality is seen. Mild degenerative changes the visualized thor acolumbar spine. OTHER: Mild calcific atheromatous changes are seen of the abdominal aorta and its branches. IMPRESSION: No evidence of visceral or osseous metastasis within the abdomen or pelvis. No new adenop athy. No evidence of stricture at the colo-colonic anastomotic site.
== END | disposition home or self-care (01) ==
LOC: RADCTMAIN 10:53
PROVIDERS: ATTEND Internal Medicine Hematology & Oncology
DX: C18.4 Malignant neoplasm of transverse colon (principal)
CPT/HCPCS: 74177; Q9967

== ENCOUNTER → 2018-04-19 | Outpatient (CLI) | payer MEDICARE, OTHER ==
[2018-04-19 13:15] LABS: Anion Gap 7 mmol/L; Blood Urea Nitrogen 15 mg/dL (7-17); Calcium 8.9 mg/dL (8.4-10.2); Carbon Dioxide 24 mmol/L (22-30); Chloride 109 mmol/L (98-107); Glucose 92 mg/dL (74-99); Potassium 4.3 mmol/L (3.5-5.1); Sodium 140 mmol/L (137-145)
== END | disposition home or self-care (01) ==
LOC: LABWHC1 11:52
PROVIDERS: ATTEND Internal Medicine
DX: I10 Essential (primary) hypertension (principal)
CPT/HCPCS: 36415; 80048

== ENCOUNTER → 2018-04-28 | Outpatient (CLI) | payer MEDICARE, OTHER ==
[2018-04-28 09:53] LABS: Blood Urea Nitrogen 15 mg/dL (7-17)
--- NOTE | 2018-04-28 11:52 | CT ---
EXAMINATION TYPE: CT ChestAbdPelvis w con DATE OF EXAM: 04/28/2018 COMPARISON: 11/08/2017, 04/29/2017 and 05/12/2015 HISTORY: Solitary Pulmonary Nodule with Uterine and Colon Cancer CT DLP: 1672 mGycm. Automated Exposure Control for Dose Reduction was Utilized. CONTRAST: CT scan of the thorax, abdomen and pelvis is performed with IV Contrast, patient injected with 100 ml mL of Isovue 300. FINDINGS: LUNGS: There is an unchanged stable right middle lobe 5 mm pulmonary nodule that is noncalcified on s eries 4 image 32. This is stable in size dating back to 05/12/2015 and should be considered benign. T here is a calcified benign left upper lobe pulmonary nodule unchanged on image 24. No new pulmonary n odules are seen. No focal consolidation, pleural effusion or pneumothorax. The lungs are grossly christiano r, there is no concerning parenchymal mass or nodule identified. There is no pleural effusion or pn eumothorax seen. The tracheobronchial tree is patent. MEDIASTINUM: There are no greater than 1 cm hilar or mediastinal lymph nodes. No pericardial effusi on is seen. LIVER/GB: Hepatic parenchyma is diffusely hypoattenuated in comparison to that of the spleen, most co mmonly seen in hepatic steatosis. This finding limits evaluation for hepatic masses. No gross evidenc e of hepatic mass is seen. No intrahepatic biliary ductal dilatation. Gallbladder surgically absent. PANCREAS: Pancreas enhances homogeneously without ductal dilatation. SPLEEN: No significant abnormality is seen. ADRENALS: No new nodule or suspicious thickening. KIDNEYS: Emanating from the right renal upper pole there is an 8 cm simple fluid attenuated cyst. Rem ainder the kidneys enhance symmetrically. No hydronephrosis. BOWEL: Again there is a colocolonic anastomotic site at the splenic flexure with no proximal dilatati on to suggest stricture. Few colonic diverticula are noted without surrounding inflammatory fat stran ding. No dilated large or small bowel. Appendix is air-filled and within normal limits. GENITAL ORGANS: Uterus appears surgically absent. LYMPH NODES: No greater than 1cm abdominal or pelvic lymph nodes are appreciated. OSSEOUS STRUCTURES: There is a punctate sclerotic focus within the left lateral aspect of the sternal body on series 6 image 59 and series 3 image 25. This is stable dating back to 2014 and could repres ent a bone island. OTHER: Small fluid and fat filled umbilical hernia is noted. IMPRESSION: 1. No new evidence of visceral or osseous metastasis within the chest, abdomen, or pelvis. 2. Punctate sclerotic focus is of the sternal body is stable dating back to thousand 15. Therefore th is could represent a benign borderline or much less likely treated metastasis. No acute osseous fract ure, abnormal fluid collection, or evidence of solid organ injury in the thorax, abdomen, or pelvis. 3. Stable noncalcified right middle lobe pulmonary nodule and calcified left upper lobe pulmonary nod ule, both should be considered benign as they are unchanged dating back to 2015.
== END | disposition home or self-care (01) ==
LOC: RADCTMAIN 09:13
PROVIDERS: ATTEND Internal Medicine Hematology & Oncology
DX: R91.1 Solitary pulmonary nodule (principal); C18.4 Malignant neoplasm of transverse colon; Z88.8 Allergy status to other drugs, medicaments and biological substances
CPT/HCPCS: 82565; 84520; 71260; 74177; 36415; Q9967

== ENCOUNTER 2018-06-14 14:36 | Observation (INO) | payer MEDICARE, OTHER ==
[2018-06-14 15:26] LABS: Basophils % (A) 0 %; Eosinophils # (A) 0.1 k/uL (0-0.7); Eosinophils % (A) 2 %; HGB 13.6 gm/dL (11.4-16.0); Lymphocytes # (A) 1.9 k/uL (1.0-4.8); Lymphocytes % (A) 30 %; MCH 31.4 pg (25.0-35.0); MCV 92.4 fL (80.0-100.0); Mean Platelet Volume 7.8; Monocytes # (A) 0.2 k/uL (0-1.0); Monocytes % (A) 3 %; Neutrophils # (A) 3.9 k/uL (1.3-7.7); Neutrophils % (A) 63 %; Platelet Count 173 k/uL (150-450); RBC 4.33 m/uL (3.80-5.40); RDW 13.3 % (11.5-15.5); WBC 6.2 k/uL (3.8-10.6)
[2018-06-14 15:35] LABS: ALT 23 U/L (9-52); AST 20 U/L (14-36); Albumin 3.9 g/dL (3.5-5.0); Alkaline Phosphatase 83 U/L (38-126); Anion Gap 9 mmol/L; Blood Urea Nitrogen 15 mg/dL (7-17); Calcium 9.5 mg/dL (8.4-10.2); Carbon Dioxide 22 mmol/L (22-30); Chloride 110 mmol/L (98-107); Glucose 93 mg/dL (74-99); Lipase 491 U/L (23-300); Magnesium 2.1 mg/dL (1.6-2.3); Potassium 4.3 mmol/L (3.5-5.1); Sodium 141 mmol/L (137-145); Total Bilirubin 0.7 mg/dL (0.2-1.3)
[2018-06-14 15:40] LABS: Creatine Kinase 44 U/L (30-135)
--- NOTE | 2018-06-14 15:40 | XR ---
EXAMINATION TYPE: XR chest 2V DATE OF EXAM: 06/14/2018 COMPARISON: None INDICATION: Chest pain TECHNIQUE: Frontal and lateral views of the chest are obtained. FINDINGS: The heart size is normal. The pulmonary vasculature is normal. The lungs are clear. IMPRESSION: 1. No acute pulmonary process.
[2018-06-14 15:41] LABS: Prothrombin Time 9.8 sec (9.0-12.0)
[2018-06-14 15:52] LABS: Creatine Kinase MB 0.3 ng/mL (0.0-2.4); Troponin I <0.012 ng/mL (0.000-0.034)
--- NOTE | 2018-06-14 15:57 | ED ---
Chest Pain HPI - General Chief Complaint: Chest Pain Stated Complaint: CHEST PAIN Time Seen by Provider: 06/14/18 14:50 Source: patient, EMS, RN notes reviewed Mode of arrival: EMS Limitations: no limitations - History of Present Illness Initial Comments: 62-year-old female sent emergency Department chief complaint chest pain. Patient states started hour to prior arrival. Patient states that it was for right and left chest radiating up her central chest into her neck. Patient states that sharp pain. She was given aspirin and nitro by EMS nitro completely alleviate her symptoms she is symptom-free at this time. She does have a history of hypertension and states that she has not had an UT in the past. She states she was admitted for angina in the past. She has had a stress test this year which was negative. Patient denies any history of diabetes or hyperlipidemia. Denies any lung disease including COPD or asthma. She denies any current nausea vomiting, diaphoretic episodes, headache or dizziness. - Related Data Home Medications Medication Instructions Recorded Confirmed LORazepam [Ativan] 0.5 mg PO BID 08/29/14 06/14/18 Lisinopril [Prinivil] 20 mg PO HS 08/29/14 06/14/18 Topiramate [Topamax] 25 mg PO BID 08/29/14 06/14/18 Sucralfate [Carafate] 1 gm PO BID 04/03/15 06/14/18 Furosemide [Lasix] 20 mg PO DAILY 09/01/15 06/14/18 Magnesium 200 mg PO HS 09/23/16 06/14/18 Nortriptyline HCl [Pamelor] 25 mg PO HS 09/29/16 06/14/18 Cholecalciferol [Vitamin D3] 1,000 unit PO HS 08/26/17 06/14/18 HYDROcodone/APAP 7.5-325MG [Violet 1 tab PO Q8H PRN 08/26/17 06/14/18 7.5-325] Metoprolol Tartrate [Lopressor] 12.5 mg PO DAILY 10/05/17 06/14/18 Multivitamins, Thera [Multivitamin 2 tab PO DAILY 06/14/18 06/14/18 (formulary)] Allergies Allergy/AdvReac Type Severity Reaction Status Date / Time fluoxetine Allergy WGT GAIN, Verified 06/14/18 14:57 CONFUSION, NAUSEA gabapentin Allergy Confusion,and Verified 06/14/18 14:57 weight gain methylphenidate HCl Allergy Confusion Verified 06/14/18 14:57 [From Concerta] and wt gain pregabalin [From Lyrica] Allergy Confusion,a Verified 06/14/18 14:57 ggresion Review of Systems ROS Statement: Those systems with pertinent positive or pertinent negative responses have been documented in the HPI. ROS Other: All systems not noted in ROS Statement are negative. EKG Findings - EKG Comments: EKG Findings:: EKG performed at 15:04 normal sinus rhythm with rate of 66 TX 196 QRS 82 QT/QTC 414/434 changes noted in V2 and V3. Past Medical History Past Medical History: Cancer, Heart Failure, Fibromyalgia, GERD/Reflux, Hypertension, Liver Disease, Osteoarthritis (OA), Sleep Apnea/CPAP/BIPAP Additional Past Medical History / Comment(s): HX BRADYCARDIA AND TACHYCARDIA, HX HEP C 1998. HX MIGRAINE. ONE SEIZURE 2002 (states she feels it was from prozac). OCCIPITAL NERVE DAMAGE PER MRI. HX CERVICAL/UTERINE CA; COLON CA AUG 2014-last chemo 03-27-15. UNABLE TO USE CPAP. osteoporosis History of Any Multi-Drug Resistant Organisms: None Reported Past Surgical History: Bowel Resection, Cholecystectomy, Hernia Repair, Hysterectomy, Orthopedic Surgery Additional Past Surgical History / Comment(s): RT FOOT BONE SPUR, L KNEE MENISCUS SX, RT INDEX FINGER TENDON REPAIR. lt power port placement & removed, rt power port inserted and removed Past Anesthesia/Blood Transfusion Reactions: Family History of Problems w/ Anesthesia Additional Past Anesthesia/Blood Transfusion Reaction / Comment(s): DAUGHTER AND MOTHER GET SEVERE PONV. Past Psychological History: Anxiety Smoking Status: Former smoker Past Alcohol Use History: None Reported Past Drug Use History: None Reported - Past Family History Mother Family Medical History: Cancer Additional Family Medical History / Comment(s): LUNG,BONE,BRAIN Daughter(s) Family Medical History: Cancer Additional Family Medical History / Comment(s): UTERINE, CERVICAL General Exam Limitations: no limitations General appearance: alert, in no apparent distress Head exam: Present: atraumatic, normocephalic, normal inspection Eye exam: Present: normal appearance, PERRL, EOMI. Absent: scleral icterus, conjunctival injection, periorbital swelling ENT exam: Present: normal exam, normal oropharynx, mucous membranes moist Neck exam: Present: normal inspection. Absent: tenderness, meningismus, lymphadenopathy Respiratory exam: Present: normal lung sounds bilaterally. Absent: respiratory distress, wheezes, rales, rhonchi, stridor Cardiovascular Exam: Present: regular rate, normal rhythm, normal heart sounds. Absent: systolic murmur, diastolic murmur, rubs, gallop, clicks Neurological exam: Present: alert, oriented X3, CN II-XII intact Skin exam: Present: warm, dry, intact, normal color. Absent: rash Course Vital Signs 06/14/18 14:49 Temperature 98.0 F Pulse Rate 72 Respiratory 16 Rate Blood Pressure 119/68 O2 Sat by Pulse 97 Oximetry Chest Pain MDM - MDM 62-year-old female presents emergency Department for chest pain. Patient has a history of hypertension prior angina diagnosis. Patient has normal labs normally EKG at this time. Patient will be admitted for repeat cardiac enzymes , heparin was started. Disposition Clinical Impression: Chest pain Disposition: ADMITTED IP TO THIS HOSP Condition: Stable Referrals: Real Ladd MD [Primary Care Provider] - 1-2 days
[2018-06-14] MEDS ORDERED: HEPARIN SODIUM,PORCINE 5,000 UNIT/ML 1 ML VIAL IV ONE (16:11)
[2018-06-14] MEDS ORDERED: NITROGLYCERIN SL TABS 0.4 MG TAB SUBLINGUAL PRN (16:11)
[2018-06-14] MEDS ORDERED: HEPARIN SOD,PORK IN 0.45% NACL 25,000 UNIT in 0.45% NACL 1 500ML.BAG IV SCH (16:15)
[2018-06-14] MEDS ORDERED: HYDROcodone/APAP 7.5-325MG 1 EACH TAB PO PRN (16:54)
[2018-06-14] MEDS ORDERED: ACETAMINOPHEN TAB 325 MG TAB PO PRN (19:04)
[2018-06-14] MEDS ORDERED: IOPAMIDOL-300 CONTRAST 30 ML VIAL (ORAL USE) PO PRN (19:56)
[2018-06-14] MEDS ORDERED: TEMAZEPAM 15 MG CAP PO PRN (19:57)
[2018-06-14] MEDS ORDERED: ALPRAZolam 0.25 MG TAB PO PRN (19:57)
[2018-06-14 20:07] VITALS: BMI 47.0
[2018-06-14] MEDS: LORazepam 0.5 MG TAB PO SCH (20:14)
[2018-06-14] MEDS: SUCRALFATE 1 GM TAB PO SCH (20:14)
[2018-06-14] MEDS: TOPIRAMATE 25 MG TAB PO SCH (20:14)
--- NOTE | 2018-06-14 20:53 | HP ---
HISTORY AND PHYSICAL DATE OF SERVICE: 06/14/2018 CHIEF COMPLAINT: Chest pain. HISTORY OF PRESENT ILLNESS: This 62-year-old woman with a past medical history of multiple medical problems including history of fibromyalgia, history of CHF, history hypertension, liver disease, history of DJD being followed by Dr. Real Ladd in the outpatient setting was complaining of chest pain. The patient apparently had anginal attack in 2001. The results of workup is not available at this time. Currently the patient is complaining of severe chest pain, felt in the lower part of the chest, which is radiating upwards, which lasted for more than the previous one. The patient also had discomfort after the current episode. The patient came to [facility] and admitted for further evaluation and treatment. The initial troponins are negative and the EKG, which was reviewed, showed minimal ST changes. No acute changes noted. There is no history of fever, rigors. No headache, loss of consciousness, seizures. PAST MEDICAL HISTORY: Fibromyalgia, GERD, CHF, liver disease, DJD, sleep apnea, history of bradycardia, history of bowel resection. MEDICATIONS: Prior to admission include home medications: 1. Vitamin D3 50,000 p.o. week. 2. Topamax 25 mg p.o. b.i.d. 3. Carafate 1 tablet p.o. b.i.d. 4. Pamelor 25 mg q.h.s. 5. Multivitamins 1-2 tablets p.o. daily. 6. Lopressor 12.5 mg p.o. daily. 7. Magnesium 200 mg q.h.s. 8. Metoprolol 20 mg p.o. q.h.s. 9. Ativan 0.5 mg b.i.d. 10.Coleman 7.5 q.8 p.r.n. 11.Lasix 20 mg p.o. daily. ALLERGIES: FLUOXETINE, GABAPENTIN, CONCERTA, LYRICA. FAMILY HISTORY: History of cancer of lung, bone and brain. SOCIAL HISTORY: Previous history of smoking. No alcohol intake. REVIEW OF SYSTEMS: ENT: No diminished hearing, vision. CARDIOVASCULAR: As mentioned earlier. RESPIRATORY: As mentioned earlier. GI: No nausea. : No dysuria. NERVOUS SYSTEM: No numbness or weakness. ALLERGY/IMMUNOLOGY: No asthma or hay fever. MUSCULOSKELETAL: As mentioned. HEMATOLOGY: No history of anemia. ENDOCRINE: No history of diabetes or hypothyroidism. CONSTITUTIONAL: As mentioned. DERMATOLOGY: Negative. RHEUMATOLOGY: Negative. PSYCHIATRY: As mentioned earlier. PHYSICAL EXAMINATION: Alert and oriented x2. Pulse 76, blood pressure 119/57, respirations 16, temperature 97.9, pulse ox 97% on room air. HEENT: Conjunctivae normal. Oral mucosa moist. Neck is no jugular venous distention. No carotid bruit. No lymph node enlargement. CARDIOVASCULAR: S1, S2. RESPIRATORY: Breath sounds diminished in the bases. No rhonchi, no crackles. ABDOMEN: Soft, obese, nontender. No mass palpable. LEGS: No edema, no swelling. NERVOUS SYSTEM: Higher functions as mentioned earlier. Moves all four limbs. No focal motor deficits. LYMPHATIC: No lymphadenopathy in the neck, axillae, groin. SKIN: No ulcers, rash, bleeding. LAB STUDIES: CBC within normal limits. Chloride 110, lipase is 491. ASSESSMENT: 1. Chest pain for evaluation, possible unstable angina. 2. Increased elevated lipase, rule out pancreatitis. 3. History of angina. 4. History of congestive heart failure. 5. History of fibromyalgia. 6. Hypertension. 7. History of degenerative joint disease. 8. Sleep apnea. 9. History of bradycardia and tachycardia. 10.History of seizure disorder. 11.History of migraine. 12.History of bowel resection. 13.History of cholecystectomy. 14.History of anxiety. 15.Remote nicotine dependence. RECOMMENDATIONS AND DISCUSSION: This 62-year-old woman who presented with multiple complex medical issues, we will monitor the patient closely. Continue the current management. Will rule out myocardial infarction. I would also recommend cardiology consultation. I would also recommend a followup of the amylase, lipase and also obtain a CT scan of the abdomen pelvis to complete the workup as well. Will also obtain a D-dimer and continue to monitor. If the D-dimer is positive, we will also order a CT angio of the chest also. Further recommendations to follow. A copy of the dictation forwarded to Dr. Real Ladd who is the primary physician. MMODL / IJN: [id number] /
[2018-06-14] MEDS ORDERED: LISINOPRIL 20 MG TAB PO SCH (21:00)
[2018-06-14] MEDS ORDERED: MAGNESIUM OXIDE 400 MG TAB PO SCH (21:00)
[2018-06-14] MEDS ORDERED: CHOLECALCIFEROL 1,000 UNIT TAB PO SCH (21:00)
[2018-06-14] MEDS ORDERED: NORTRIPTYLINE 25 MG CAP PO SCH (21:00)
[2018-06-14 21:26] LABS: Creatine Kinase 44 U/L (30-135)
[2018-06-14 21:31] LABS: D-Dimer 0.35 mg/L FEU (<0.60); Partial Thromboplastin Time 46.6 sec (22.0-30.0)
[2018-06-14 21:39] LABS: Creatine Kinase MB 0.2 ng/mL (0.0-2.4); Troponin I <0.012 ng/mL (0.000-0.034)
[2018-06-14 21:42] LABS: Appearance,Urine Cloudy (Clear); Bilirubin,Urine Negative (Negative); Blood,Urine Negative (Negative); Color,Urine Yellow; Glucose,Urine (UA) Negative (Negative); Ketones,Urine Negative (Negative); Leukocyte Esterase,Urine Negative (Negative); Mucus,Urine Rare /hpf; Nitrite,Urine Negative (Negative); Protein,Urine Negative (Negative); RBC,Urine 1 /hpf (0-5); Squamous Epithelial Cell,Urine 13 /hpf (0-4); Urobilinogen,Urine <2.0 mg/dL (<2.0); WBC,Urine 4 /hpf (0-5)
[2018-06-14 21:49] LABS: Amphetamine Screen,Urine Not Detected (NotDetected); Barbiturate Screen,Urine Not Detected (NotDetected); Benzodiazepines Screen,Urine Detected (NotDetected); Cocaine Screen,Urine Not Detected (NotDetected); Methadone Screen, Urine Not Detected (NotDetected); Opiate Screen,Urine Detected (NotDetected); Oxycodone Screen, Urine Not Detected (NotDetected); Phencyclidine Screen,Urine Not Detected (NotDetected); Tricyclic Antidepressant,Urine Detected (NotDetected); Urn Cannabinoid Scrn Detected (NotDetected)
--- NOTE | 2018-06-14 22:30 | CT ---
EXAMINATION TYPE: CT abdomen pelvis wo con DATE OF EXAM: 06/14/2018 COMPARISON: 04/28/2018 HISTORY: Abdominal pain, hx of colon CA CT DLP: 1289.4 mGycm Automated exposure control for dose reduction was used. TECHNIQUE: Helical acquisition of images was performed from the lung bases through the pelvis. FINDINGS: Lung bases are clear. There is no pleural effusion. Heart size is normal. Liver shows no focal defect. There are clips from cholecystectomy. Stomach is large. Spleen appears n ormal. Bile ducts are not dilated. There is no pancreatic mass. There is no adrenal mass. There is 7.5 cm cyst upper pole right kidney. There is no hydronephrosis. U reters are not dilated. There is no retroperitoneal adenopathy. Appendix appears normal. Bladder dist ends smoothly. There is no inguinal hernia. There is no free fluid in the pelvis. I see no intestinal wall thickening. There is no evidence of chloe wel obstruction. There is no free air. There is no ascites. There is no mesenteric edema or adenopath y. The lumbar spine is intact. There is no compression fracture. The bony pelvis is intact. IMPRESSION: LARGE RIGHT RENAL CORTICAL CYST. NO SIGN OF ACUTE ABDOMEN AND PELVIS. NO ADVERSE CHANGE COMPARED TO O LD EXAM. NO EVIDENCE OF METASTATIC DISEASE.
[2018-06-15 04:32] LABS: Basophils % (A) 0 %; Eosinophils # (A) 0.1 k/uL (0-0.7); Eosinophils % (A) 2 %; HCT 38.1 % (34.0-46.0); HGB 12.8 gm/dL (11.4-16.0); Lymphocytes # (A) 2.5 k/uL (1.0-4.8); Lymphocytes % (A) 46 %; MCH 31.4 pg (25.0-35.0); MCHC 33.6 g/dL (31.0-37.0); MCV 93.4 fL (80.0-100.0); Mean Platelet Volume 7.9; Monocytes # (A) 0.2 k/uL (0-1.0); Monocytes % (A) 4 %; Neutrophils # (A) 2.6 k/uL (1.3-7.7); Neutrophils % (A) 47 %; Platelet Count 150 k/uL (150-450); RBC 4.08 m/uL (3.80-5.40); RDW 13.3 % (11.5-15.5); WBC 5.5 k/uL (3.8-10.6)
[2018-06-15 04:46] LABS: Creatine Kinase 44 U/L (30-135)
[2018-06-15 04:58] LABS: Creatine Kinase MB 0.3 ng/mL (0.0-2.4); Troponin I <0.012 ng/mL (0.000-0.034)
[2018-06-15 05:02] LABS: Calcium 9.2 mg/dL (8.4-10.2); Potassium 4.1 mmol/L (3.5-5.1)
[2018-06-15 07:21] VITALS: RESP 18; TEMP 97.4
[2018-06-15] MEDS: LORazepam 0.5 MG TAB PO SCH (08:28)
[2018-06-15] MEDS: SUCRALFATE 1 GM TAB PO SCH (08:28)
[2018-06-15] MEDS: TOPIRAMATE 25 MG TAB PO SCH (08:34)
[2018-06-15] MEDS ORDERED: ASPIRIN 325 MG TAB PO SCH (09:00)
[2018-06-15] MEDS ORDERED: FUROSEMIDE 20 MG TAB PO SCH (09:00)
[2018-06-15] MEDS ORDERED: ISOSORBIDE MONONITRATE ER 30 MG TAB.ER.24H PO SCH (09:00)
[2018-06-15] MEDS ORDERED: METOPROLOL TARTRATE 12.5 MG TAB PO SCH (09:00)
[2018-06-15 11:12] VITALS: BP 123/81; PULSE 68
--- NOTE | 2018-06-15 11:12 | CONS ---
CONSULTATION ATTENDING DOCTOR: Dr. Ladd Mrs. Morales is a 62-year-old female with a history of hypertension who presented to the emergency room with symptoms of chest discomfort. She was sitting at home when she started to have discomfort radiating up to the neck and to the arm. The symptoms lasted for about 20-25 minutes with it with some dyspnea. Since that time, she had no further symptoms. The patient has been followed by Dr. Shirley Hogan on a regular basis and has underwent a myocardial perfusion imaging recently and according to her it was normal. She had an episode of chest discomfort 2001 and she was told she may have angina, but there was no documented ischemic heart disease. The patient is average in exercise tolerance. She is more active now than before after she lost weight. She has some fatigue and dyspnea but no exertional chest pain. She has no PND, no orthopnea. She has some peripheral edema. No dizziness, palpitation, or syncope. Her coronary risk factors remarkable for history of hypertension. She is nondiabetic, nonsmoker. MEDICATIONS: Include vitamin D, Topamax, Carafate, Pamelor, Lopressor 12.5 mg daily, Prinivil 20 mg daily, Ativan, hydrocodone, and Lasix 20 mg daily. REVIEW OF SYSTEMS: RESPIRATORY SYSTEM: She has no documented history of asthma, emphysema or bronchitis. GI System: No recent GI bleed. No peptic ulcer disease. SYSTEM: No dysuria or hematuria. NERVOUS SYSTEM: No history of stroke or seizure. PHYSICAL EXAMINATION: A 62-year-old female, alert, oriented, in no apparent distress. Blood pressure 126/60 with a heart in the 60s. HEAD: Normocephalic. EYES: Sclerae anicteric. NECK: Good upstroke, no bruit, no venous distention. LUNGS: Clear to auscultation. HEART: Regular rhythm S1, S2. No S3. No S4. No murmur or rub. ABDOMEN: Soft, nontender, obese. Positive bowel sounds. No megaly. EXTREMITIES: No edema. Intact distal pulses. LAB DATA: Lab data revealed troponin less than 0.012. BUN and creatinine 15 and 0.85. Potassium 4.1, hemoglobin 12.8. Cholesterol 153 and LDL of 73. Her lipase was 491 yesterday, 198 today. She had marijuana and opiates in her urine screen. EKG revealed a sinus mechanism, normal axis and intervals. Her QS in V1 to V2 could be lead placement. Her chest x-ray revealed no evidence for acute changes and her abdominal x-ray revealed no evidence of metastatic disease. She has a large right renal cortical cyst. IMPRESSION: 1. Chest discomfort has atypical features for ischemic heart disease probably noncardiac in etiology. The possibility of vasospastic disease cannot be totally excluded. 2. History of hypertension. 3. Prior history of fibromyalgia. 4. Prior history of bowel resection. RECOMMENDATION: From the cardiac standpoint I will stop the heparin. I will add nitrate for the possibility of vasospastic disease. Increase her level activity. I will obtain echocardiogram with Doppler. If there is no evidence of significant abnormality then I would expect she should be able to be discharged home today and followed as an outpatient with Dr. Shirley Hogan. Thank you for this consult. We will follow with you. MMODL / IJN: [id number] /
[2018-06-15] MEDS ORDERED: MULTIVITAMINS, THERA 1 EACH TAB PO SCH (12:00)
--- NOTE | 2018-06-16 10:43 | DS ---
DISCHARGE SUMMARY DATE OF SERVICE: 06/15/2018 FINAL DIAGNOSES: 1. Chest pain, possible unstable angina. 2. Increased lipase improved. 3. History of angina. 4. History of congestive heart failure. 5. History of fibromyalgia. 6. Hypertension. 7. History of degenerative joint disease. 8. History of sleep apnea. 9. Bradycardia, tachycardia. 10.History of seizure disorder. 11.History of migraines. 12.Bowel resection. 13.History of cholecystectomy. 14.History of anxiety. 15.Remote history of nicotine dependence. DISCHARGE DISPOSITION: The patient is being discharged in stable condition with guarded prognosis. HISTORY OF PRESENT ILLNESS: This 62-year-old woman with past medical history of multiple medical problems being followed by Dr. Real Ladd in the outpatient setting, was admitted to the hospital with chest pain, myocardial infarction ruled out. Cardiology saw the patient. Recommended outpatient follow up. PHYSICAL EXAMINATION: On exam vitals are stable. Cardiovascular: S1, S2. Abdomen soft. Nervous system: No focal deficits. DISCHARGE ADVICE AND MEDICATIONS: 1. Discharge diet is cardiac diet. 2. Followup with Dr. Real Ladd in 2 to 3 days. 3. Follow up with Dr. Shirley Hogan in 1 week for further evaluation. MEDICATIONS: 1. Vitamin D3 50,000 weekly. 2. Lasix 20 mg daily. 3. Hydrocodone 7.5 q8h p.r.n. 4. Prinivil 20 mg q.h.s. 5. Ativan 0.5 mg b.i.d. 6. Magnesium 200 mg q.h.s. 7. Lopressor 12.5 mg daily. 8. Multivitamins 1 p.o. daily. 9. Pamelor 25 mg q.h.s. 10.Carafate 1 g p.o. b.i.d. 11.Topamax 25 mg b.i.d. 12.Tylenol p.r.n. 13.Ecotrin 81 mg daily. 14.Imdur 30 mg daily. 15.Nitrostat 0.4 mg p.r.n. Once again the patient is being discharged in stable condition with guarded prognosis. MMODL / IJN: [id number] /
== END 2018-06-15 15:25 | disposition home or self-care (01) ==
LOC: EC 14:36 → 1SOBS 16:26
PROVIDERS: ADMIT Internal Medicine; ATTEND Internal Medicine
DX: R07.9 Chest pain, unspecified (principal); R74.8 Abnormal levels of other serum enzymes; I11.0 Hypertensive heart disease with heart failure; I50.9 Heart failure, unspecified; M79.7 Fibromyalgia; M19.90 Unspecified osteoarthritis, unspecified site; G47.30 Sleep apnea, unspecified; R00.1 Bradycardia, unspecified; R00.0 Tachycardia, unspecified; Z90.49 Acquired absence of other specified parts of digestive tract; F41.9 Anxiety disorder, unspecified; Z87.891 Personal history of nicotine dependence; Z79.899 Other long term (current) drug therapy; Z88.8 Allergy status to other drugs, medicaments and biological substances; K21.9 Gastro-esophageal reflux disease without esophagitis; K76.9 Liver disease, unspecified; G40.89 Other seizures; G43.909 Migraine, unspecified, not intractable, without status migrainosus; Z86.19 Personal history of other infectious and parasitic diseases; Z85.41 Personal history of malignant neoplasm of cervix uteri; Z85.42 Personal history of malignant neoplasm of other parts of uterus; Z85.038 Personal history of other malignant neoplasm of large intestine; Z92.21 Personal history of antineoplastic chemotherapy; M81.0 Age-related osteoporosis without current pathological fracture; Z80.1 Family history of malignant neoplasm of trachea, bronchus and lung; Z80.8 Family history of malignant neoplasm of other organs or systems; Z80.49 Family history of malignant neoplasm of other genital organs
CPT/HCPCS: 99285 ×2; 96365 ×2; 96366 ×3; 96376 ×2; 36415; 93005; 85379; 80061; 80053; 80048; 82150; 82550 ×2; 82553 ×2; 83690 ×2; 83735; 84484 ×2; 85025 ×2; 85610; 85730 ×2; 81001; 80306; 71046; 74176; G0378 ×2; J1644 ×2

== ENCOUNTER 2018-08-06 20:58 | Observation (INO) | payer MEDICARE, OTHER ==
--- NOTE | 2018-08-06 21:28 | XR ---
EXAMINATION TYPE: XR chest 2V DATE OF EXAM: 08/06/2018 COMPARISON: Chest radiograph 06/14/2018 HISTORY: Chest pain TECHNIQUE: Frontal and lateral views of the chest are obtained. FINDINGS: There is no focal air space opacity, pleural effusion, or pneumothorax seen. The cardiac silhouette size is within normal limits. The osseous structures are intact. IMPRESSION: No acute cardiopulmonary process. No significant interval change.
[2018-08-06 21:34] LABS: Basophils % (A) 0 %; Eosinophils # (A) 0.2 k/uL (0-0.7); Eosinophils % (A) 2 %; HCT 41.6 % (34.0-46.0); HGB 14.4 gm/dL (11.4-16.0); Lymphocytes # (A) 2.5 k/uL (1.0-4.8); Lymphocytes % (A) 29 %; MCH 31.9 pg (25.0-35.0); MCHC 34.6 g/dL (31.0-37.0); MCV 92.1 fL (80.0-100.0); Mean Platelet Volume 7.7; Monocytes # (A) 0.4 k/uL (0-1.0); Monocytes % (A) 4 %; Neutrophils # (A) 5.3 k/uL (1.3-7.7); Neutrophils % (A) 63 %; Platelet Count 176 k/uL (150-450); RBC 4.52 m/uL (3.80-5.40); RDW 13.5 % (11.5-15.5); WBC 8.4 k/uL (3.8-10.6)
[2018-08-06 21:42] LABS: INR 0.9 (<1.2); Partial Thromboplastin Time 24.5 sec (22.0-30.0); Prothrombin Time 9.6 sec (9.0-12.0)
[2018-08-06 21:53] LABS: Calcium 9.5 mg/dL (8.4-10.2); Magnesium 2.1 mg/dL (1.6-2.3); Potassium 4.1 mmol/L (3.5-5.1); Total Bilirubin 0.7 mg/dL (0.2-1.3); Total Protein 7.2 g/dL (6.3-8.2)
[2018-08-06 22:14] LABS: Creatine Kinase 40 U/L (30-135)
--- NOTE | 2018-08-06 22:25 | ED ---
Chest Pain HPI - General Chief Complaint: Chest Pain Stated Complaint: Chest Pain Time Seen by Provider: 08/06/18 21:26 Source: EMS Mode of arrival: EMS Limitations: no limitations - History of Present Illness MD Complaint: chest pain Onset/Timin -: hour(s) Onset: during rest Pain Location: substernal Pain Radiation: back Severity: severe Quality: tightness Consistency: constant, now resolved Improves With: nothing Worsens With: nothing Anginal Symptoms: diaphoresis, dyspnea - Related Data Home Medications Medication Instructions Recorded Confirmed LORazepam [Ativan] 0.5 mg PO BID 08/29/14 08/06/18 Lisinopril [Prinivil] 20 mg PO HS 08/29/14 08/06/18 Topiramate [Topamax] 25 mg PO BID 08/29/14 08/06/18 Sucralfate [Carafate] 1 gm PO BID 04/03/15 08/06/18 Furosemide [Lasix] 20 mg PO DAILY 09/01/15 08/06/18 Magnesium 200 mg PO HS 09/23/16 08/06/18 Nortriptyline HCl [Pamelor] 25 mg PO HS 09/29/16 08/06/18 HYDROcodone/APAP 7.5-325MG [Tyler 1 tab PO Q8H PRN 08/26/17 08/06/18 7.5-325] Metoprolol Tartrate [Lopressor] 12.5 mg PO DAILY 10/05/17 08/06/18 Cholecalciferol (Vitamin D3) 50,000 units PO MO 06/14/18 08/06/18 [Vitamin D3] Multivitamins, Thera [Multivitamin 2 tab PO DAILY 06/14/18 08/06/18 (formulary)] Previous Rx's Medication Instructions Recorded Acetaminophen Tab [Tylenol] 650 mg PO Q6HR PRN tab 06/15/18 Aspirin EC [Ecotrin Low Dose] 81 mg PO DAILY #30 tablet. 06/15/18 Nitroglycerin Sl Tabs [Nitrostat] 0.4 mg SUBLINGUAL Q5M PRN #20 tab 06/15/18 Allergies Allergy/AdvReac Type Severity Reaction Status Date / Time fluoxetine Allergy WGT GAIN, Verified 08/06/18 21:19 CONFUSION, NAUSEA gabapentin Allergy Confusion,and Verified 01/13/19 21:19 weight gain methylphenidate HCl Allergy Confusion Verified 08/06/18 21:19 [From Concerta] and wt gain pregabalin [From Lyrica] Allergy Confusion,a Verified 08/06/18 21:19 ggresion Review of Systems ROS Statement: Those systems with pertinent positive or pertinent negative responses have been documented in the HPI. ROS Other: All systems not noted in ROS Statement are negative. Constitutional: Denies: fever, chills, weakness Respiratory: Reports: dyspnea. Denies: cough Cardiovascular: Reports: chest pain. Denies: palpitations, orthopnea, edema, syncope Gastrointestinal: Reports: nausea. Denies: abdominal pain, vomiting, diarrhea Genitourinary: Denies: dysuria, hematuria Musculoskeletal: Denies: back pain Skin: Denies: rash Neurological: Denies: headache, weakness, numbness EKG Findings - EKG Results: EKG: interpreted by HUGO BLUE, sinus rhythm (Rate 81 bpm), normal axis, normal QRS, normal ST/T, no acute changes - NH, Pacemaker, Normal: Normal tracing: normal tracing Past Medical History Past Medical History: Cancer, Heart Failure, Fibromyalgia, GERD/Reflux, Hypertension, Liver Disease, Osteoarthritis (OA), Sleep Apnea/CPAP/BIPAP Additional Past Medical History / Comment(s): HX BRADYCARDIA AND TACHYCARDIA, HX HEP C 1998. HX MIGRAINE. ONE SEIZURE 2002 (states she feels it was from prozac). OCCIPITAL NERVE DAMAGE PER MRI. HX CERVICAL/UTERINE CA; COLON CA AUG 2014-last chemo 03-27-15. UNABLE TO USE CPAP. osteoporosis, neuropathy History of Any Multi-Drug Resistant Organisms: None Reported Past Surgical History: Bowel Resection, Cholecystectomy, Hernia Repair, Hysterectomy, Orthopedic Surgery Additional Past Surgical History / Comment(s): RT FOOT BONE SPUR, L KNEE MENISCUS SX, RT INDEX FINGER TENDON REPAIR. lt power port placement & removed, rt power port inserted and removed Past Anesthesia/Blood Transfusion Reactions: Family History of Problems w/ Anesthesia Additional Past Anesthesia/Blood Transfusion Reaction / Comment(s): DAUGHTER AND MOTHER GET SEVERE PONV. Past Psychological History: Anxiety Smoking Status: Former smoker Past Alcohol Use History: None Reported Past Drug Use History: Marijuana - Past Family History Mother Family Medical History: Cancer Additional Family Medical History / Comment(s): LUNG,BONE,BRAIN Daughter(s) Family Medical History: Cancer Additional Family Medical History / Comment(s): UTERINE, CERVICAL General Exam Limitations: no limitations General appearance: alert, in no apparent distress Head exam: Present: atraumatic, normocephalic Eye exam: Present: normal appearance. Absent: scleral icterus, conjunctival injection ENT exam: Present: normal oropharynx Neck exam: Present: normal inspection Respiratory exam: Present: normal lung sounds bilaterally. Absent: respiratory distress, wheezes, rales, rhonchi, stridor, chest wall tenderness Cardiovascular Exam: Present: regular rate, normal rhythm, normal heart sounds. Absent: systolic murmur, diastolic murmur, rubs, gallop GI/Abdominal exam: Present: soft. Absent: distended, tenderness, guarding, rebound, rigid, mass Extremities exam: Present: normal inspection, normal capillary refill. Absent: pedal edema, calf tenderness Back exam: Present: normal inspection. Absent: CVA tenderness (R), CVA tenderness (L) Neurological exam: Present: alert Skin exam: Present: warm, dry, intact, normal color. Absent: rash Course Vital Signs 08/06/18 08/06/18 08/07/18 21:00 22:00 00:00 Temperature 97.8 F Pulse Rate 80 75 88 Respiratory 18 16 15 Rate Blood Pressure 145/86 117/80 128/78 O2 Sat by Pulse 100 96 97 Oximetry 08/07/18 00:16 Temperature Pulse Rate 80 Respiratory 18 Rate Blood Pressure 110/70 O2 Sat by Pulse 98 Oximetry Disposition Clinical Impression: Chest pain Disposition: ADMITTED IP TO THIS [facility] Condition: Fair Instructions: Chest Pain (ED) Is patient prescribed a controlled substance at d/c from ED?: No Referrals: Real Ladd MD [Primary Care Provider] - 1-2 days
[2018-08-06 22:27] LABS: Creatine Kinase MB <0.2 ng/mL (0.0-2.4); Troponin I <0.012 ng/mL (0.000-0.034)
[2018-08-07] MEDS ORDERED: NITROGLYCERIN SL TABS 0.4 MG TAB SUBLINGUAL PRN (00:07)
[2018-08-07] MEDS ORDERED: ACETAMINOPHEN TAB 325 MG TAB PO PRN (00:09)
[2018-08-07 00:59] VITALS: BMI 35.9
[2018-08-07] MEDS: HYDROcodone/APAP 7.5-325MG 1 EACH TAB PO PRN ×2 (01:15→12:19)
[2018-08-07] MEDS ORDERED: LISINOPRIL 20 MG TAB PO SCH (01:15)
[2018-08-07] MEDS ORDERED: NORTRIPTYLINE 25 MG CAP PO SCH (01:15)
[2018-08-07] MEDS: SUCRALFATE 1 GM TAB PO SCH ×2 (01:36→18:20)
[2018-08-07 04:46] LABS: Creatine Kinase 41 U/L (30-135)
[2018-08-07 04:59] LABS: Creatine Kinase MB 0.2 ng/mL (0.0-2.4); Troponin I <0.012 ng/mL (0.000-0.034)
[2018-08-07] MEDS ORDERED: REGADENOSON 0.4 MG/5 ML SYRINGE IV ONE (07:42)
[2018-08-07] MEDS ORDERED: CAFFEINE CITRATE 60 MG/3 ML VIAL IV PRN (07:42)
[2018-08-07] MEDS ORDERED: SODIUM CHLORIDE 0.9% 1,000 ML IV SCH (07:45)
--- NOTE | 2018-08-07 08:13 | CONS ---
CONSULTATION This is a 62-year-old somewhat obese lady with a known history of colon cancer, status post surgery and chemotherapy. Also has had some hernia surgery as well. She has underlying hypertension and I see her in the office regularly. On 07/03/2018 I saw her with complaints of some nondescript shortness of breath and I recommend an echocardiogram. Stress test about almost 11 months ago was unremarkable for any clear- cut ischemia. There was some soft tissue attenuation. However, yesterday she had a conversation with her grandson on the phone, a long phone call, which she said was a pleasant phone call, but after that she felt some sensation of nausea and then had nondescript chest tightness and pressure and felt very anxious and came into the hospital. Her symptoms have resolved. She is resting comfortably at the time of my evaluation. She has no nausea or diaphoresis. Blood pressure control appears to be good. PAST MEDICAL HISTORY: 1. History of atypical chest pain. 2. History of sleep apnea syndrome. 3. Hypertension, hyperlipidemia, gastroesophageal reflux disease for which she has taken Prilosec for a long time and now on Carafate. She is status post colon cancer in 2014 with chemotherapy and surgery. Also had a cervical and uterine cancer. Migraine headaches. MEDICATIONS: At home include Lasix, magnesium supplements, metoprolol tartrate 12.5 mg daily vitamin supplements toe p.m. rate for my migraine, lisinopril 20 mg daily for hypertension and a Diovan p.r.n. ALLERGIES: She is allergic to FLUOXETINE and she is methylbenzoate and Lyrica. PHYSICAL EXAMINATION: Blood pressure is 118/70, pulse rate 78 per minute regular. HEENT: Unremarkable. Fundus was not examined by me. Neck is supple. There is no JVD. I do not hear a carotid bruit. Heart sounds are heard somewhat distantly, but no significant murmurs. Lungs are clear. Abdomen is soft, nontender. Lower extremities reveal normal pulses. No edema. Central nervous system is normal. IMPRESSION: 1. Chest pain syndrome seems very atypical. 2. Remote history of PSVT, has no further issues at this time. 3. She is this patient was hospitalized in May and again [place] and coming into the hospital today with normal stress test in earlier in the ER. Pain is atypical but cannot exclude angina. She has moderate risk factors. 4. History of colon cancer status post surgery and chemotherapy. 5. Migraine headaches. 6. Obesity. RECOMMENDATIONS: I am recommending a Lexiscan stress test as well as an echocardiogram. We will place her on 0.9 saline 100 mL/hour. Her troponins are normal. If stress test shows any concern or abnormality or question of abnormality, we will do a coronary angiography. I discussed this with the patient. She has quit smoking cigarettes, but distant and smoking marijuana. I have advised her to work on marijuana cessation as well. Based on the stress test findings, will make further recommendations. Thank you very much for the consult. LESLEY / RODOLFO: [id number] /
[2018-08-07 08:23] LABS: Creatine Kinase 47 U/L (30-135)
[2018-08-07 08:37] LABS: Creatine Kinase MB <0.2 ng/mL (0.0-2.4)
[2018-08-07] MEDS ORDERED: ASPIRIN 81 MG PO SCH (09:00)
[2018-08-07] MEDS ORDERED: METOPROLOL TARTRATE 12.5 MG TAB PO SCH (09:00)
[2018-08-07] MEDS ORDERED: LORazepam 0.5 MG TAB PO SCH (09:00)
[2018-08-07] MEDS ORDERED: FUROSEMIDE 20 MG TAB PO SCH (09:00)
[2018-08-07] MEDS ORDERED: TOPIRAMATE 25 MG TAB PO SCH (09:00)
[2018-08-07 09:08] LABS: Troponin I <0.012 ng/mL (0.000-0.034)
[2018-08-07 10:14] LABS: Cholesterol 157 mg/dL (<200); HDL Cholesterol 35 mg/dL (40-60); LDL Cholesterol,Calculated 86 mg/dL (0-99); Triglycerides 180 mg/dL (<150)
--- NOTE | 2018-08-07 12:03 | NM ---
EXAMINATION TYPE: NM stress lexiscan cardiolite DATE OF EXAM: 08/07/2018 COMPARISON: NONE HISTORY: 62-year-old female with chest pain TECHNIQUE: After the intravenous administration of 10.0 mCi Tc 99m Sestamibi - Cardiolite resting SP ECT images acquired 45 minutes post injection. The patient received 0.4mg Lexiscan, 24.8 mCi Tc 99m Sestamibi - Stress images obtained [address] injection FINDINGS: Review of stress and rest SPECT images demonstrates small area of decreased perfusion along the apica l anteroseptal wall on both rest and stress images. The technologist reports the patient having chest discomfort following the injection of Lexiscan. No suspicious reversibility is identified. Gated alma rosa lysis shows normal wall motion with an estimated left ventricular ejection fraction of 63 %. TID is calculated at 1.07, within normal limits. IMPRESSION: 1. Small area of decreased perfusion along the anteroseptal apical wall could represent attenuation a rtifact or area of small old infarct. We note that this finding is not corroborated on the polar maps . 2. No suspicious reversibility identified. 3. Estimated LVEF of 63%.
[2018-08-07 12:13] VITALS: RESP 16
[2018-08-07] MEDS ORDERED: MULTIVITAMINS, THERA 1 EACH TAB PO SCH (12:30)
[2018-08-07 15:48] VITALS: BP 106/52; PULSE 70; TEMP 98.2
--- NOTE | 2018-08-07 18:43 | DS ---
DISCHARGE SUMMARY HISTORY PHYSICAL AND DISCHARGE SUMMARY: DATE OF ADMISSION: 08/07/2018 DATE OF DISCHARGE: 08/07/2018 PRESENTING COMPLAINT: Chest pain. HISTORY OF PRESENTING COMPLAINT: A very pleasant 62 -year-old patient of Dr. Real Ladd. Chronic stable medical conditions include congestive heart failure, fibromyalgia, GERD, hypertension, osteoarthritis, hepatitis C, peripheral neuropathy, does have sleep apnea, does not use a CPAP machine. Last night she developed pressure at the lower sternal area went up to her throat and jaw. Also radiated down to both her armpits. The patient became short of breath, perspiring, nauseated. Symptoms lasted for close to half an hour. Did take some nitroglycerin. Really did not help much. The patient had a similar episode around and she was seeing the store receiver as a workup for the same. Patient admitted for the same. Troponins came back negative. Cardiology was consulted who ordered a stress test. REVIEW OF SYSTEM: CONSTITUTIONAL: None. HEENT: None. RESPIRATORY: None. CARDIOVASCULAR: As above. GASTROINTESTINAL: Heartburn. GENITOURINARY: None. MUSCULOSKELETAL: Pain in the joints. DERMATOLOGICAL, HEMATOLOGIC, LYMPHATIC: none. PSYCHIATRY none. NEUROLOGICAL none. PAST MEDICAL HISTORY: Congestive heart failure, EF not known, fibromyalgia, GERD, hypertension, liver disease, osteoarthritis, obstructive sleep apnea does not use CPAP, history of Efren/tachycardia, hepatitis C in 1998, a seizure in 2002, questionable from a drug; occipital nerve damage per MRI, history of cervical uterine cancer. Colon cancer in 2014. Last chemo in 2014, osteoporosis, peripheral neuropathy. PAST SURGICAL HISTORY: Bowel resection, cholecystectomy, hernia repair, hysterectomy, right foot bone spur, left knee meniscus surgery, right index finger repair, left PowerPort placement. PSYCH HISTORY: Anxiety. SOCIAL HISTORY: The patient smoked for about 13 years, stopped in 1967. The patient did do recreational drugs back in 1980. Does medical marijuana. Lives with her son and grandson. FAMILY HISTORY: Family history of lung, bone and brain cancer. HOME MEDICATIONS: 1. Topamax 25 mg b.i.d. 2. Carafate 1 g p.o. b.i.d. 3. Pamelor 25 mg q.h.s. 4. Nitrostat 0.4 sublingual q.5 p.r.n. 5. Multivitamin 2 tablets p.o. daily. 6. Lopressor 12.5 p.o. daily. 7. Magnesium 200 mg at bedtime. 8. Prinivil 20 mg q.h.s. 9. Ativan 0.5 mg p.o. b.i.d. 10.[place] 7.5 one tab q.8h p.r.n. 11.Lasix 20 mg p.o. daily. 12.Vitamin D3 50,000 units p.o. Tuesday. 13.Aspirin 81 mg p.o. daily. 14.Tylenol 650 mg q.6h p.r.n. ALLERGY: TO FLUOXETINE, GABAPENTIN, CONCERTA AND LYRICA. PHYSICAL EXAMINATION: VITAL SIGNS: On examination vital signs on presentation, temperature 97.8, pulse 80, respiratory 18, blood pressure 145/86, pulse ox 100 percent on room air. GENERAL APPEARANCE: Well built, BMI 35.9. Lying in bed, not in distress. EYES: Pupils equal. Conjunctivae normal. HEENT: External appearance of nose and ears normal. Oral cavity normal. NECK: JVD not raised. Mass not palpable. RESPIRATORY: Effort normal. LUNGS are clear. CARDIOVASCULAR: 1st and 2nd sounds normal. No edema. ABDOMEN: Soft, nontender. Liver and spleen not palpable. LYMPHATICS: No lymph nodes palpable in the neck and axilla. PSYCHIATRY: Alert and oriented x3. Mood and affect normal. NEUROLOGICAL: Pupils equal. Cranial nerves grossly intact. Power and sensation grossly intact. INVESTIGATIONS: White count 8.4, hemoglobin 14.4, potassium 4.1, BUN 19, creatinine 1.0. Troponin x3 negative. LDL 86. EKG tracing personally reviewed by me shows normal sinus rhythm. Chest x-ray film personally reviewed by me shows some fullness of the left hilum. Lung vera are clear. Lexiscan stress test was done. ASSESSMENT: 1. Anterior chest wall pain sounding with a cardiac presentation could be possible angina and patient's nuclear stress test came back negative. 2. Chronic fibromyalgia. 3. Gastroesophageal reflux disease. 4. Essential hypertension. 5. Primary osteoarthritis. 6. Hepatitis C. 7. Peripheral neuropathy. PLAN: Patient was seen by Cardiology earlier who did a nuclear stress test that came back to be negative, They okayed the patient to be discharged. Given the presentation, we will increase the dose of Lopressor to 12.5 twice a day. Also start the patient on Nitrostat. Patient should follow up with Cardiology in the office. DISCHARGE MEDICATIONS: 1. Lopressor dose increased to 12.5 twice a day. 2. Nitrostat 0.4 sublingual q.5 p.r.n. 3. Other medications to continue. FOLLOWUP: Follow up with Dr. Real Ladd in the week. Follow up with Dr. Shirley Hogan on 09/07/2018. MMODL / IJN: [id number] /
--- NOTE | 2018-08-07 19:27 | ECHOF ---
Referral Reason:cp MEASUREMENTS -------- HEIGHT: 160.0 cm WEIGHT: 91.6 kg BP: 116/70 RVIDd: 2.4 cm (< 3.3) IVSd: 1.1 cm (0.6 - 1.1) LVIDd: 4.8 cm (3.9 - 5.3) LVPWd: 1.1 cm (0.6 - 1.1) IVSs: 1.4 cm LVIDs: 3.2 cm LVPWs: 1.4 cm LAESV Index (A-L): 21.16 ml/m Ao Diam: 3.1 cm (2.0 - 3.7) AV Cusp: 2.4 cm (1.5 - 2.6) LA Diam: 3.6 cm (2.7 - 3.8) MV E Raj: 0.71 m/s MV DecT: 416 ms MV A Raj: 1.03 m/s MV E/A Ratio: 0.69 RAP: 5.00 mmHg RVSP: 20.57 mmHg MV EF SLOPE: 45.99 mm/s (70 - 150) MV EXCURSION: 1.59 cm (> 18.000) FINDINGS -------- Sinus rhythm. This was a technically adequate study. The left ventricular size is normal. There is borderline concentric left ventricular hypertrophy. Overall left ventricular systolic function is normal with, an EF between 55 - 60 %. The right ventricle is normal in size and function. Normal LA size by volume 22+/-6 ml/m2. The right atrium is normal in size. Aortic valve is trileaflet and is mildly thickened. There is no evidence of aortic regurgitation. There is no evidence of aortic stenosis. Mild mitral annular calcification present. There is trace to mild mitral regurgitation. Trace tricuspid regurgitation present. Right ventricular systolic pressure is normal at < 35 mmHg. There is no evidence of pulmonary hypertension. Trace/mild (physiologic) pulmonic regurgitation. The aortic root size is normal. Normal inferior vena cava with normal inspiratory collapse consistent with estimated right atrial pre ssure of 5 mmHg. Echo free space may represent effusion or a pericardial fat pad. CONCLUSIONS -------- 1. Sinus rhythm. 2. This was a technically adequate study. 3. The left ventricular size is normal. 4. There is borderline concentric left ventricular hypertrophy. 5. Overall left ventricular systolic function is normal with, an EF between 55 - 60 %. 6. Normal LA size by volume 22+/-6 ml/m2. 7. Aortic valve is trileaflet and is mildly thickened. 8. Mild mitral annular calcification present. 9. There is trace to mild mitral regurgitation. 10. Trace tricuspid regurgitation present. 11. Right ventricular systolic pressure is normal at < 35 mmHg. 12. There is no evidence of pulmonary hypertension. 13. Trace/mild (physiologic) pulmonic regurgitation. 14. The aortic root size is normal. 15. Echo free space may represent effusion or a pericardial fat pad. MILLER SUPERVISOR: Oscar Pablo RDCS
--- NOTE | 2018-08-07 20:58 | EST ---
EXERCISE STRESS DATE OF SERVICE: 08/07/2018 AGE: 63 SEX: Female HT: 63" WT: 202 pounds PROTOCOL: Lexiscan Cardiolite STAGE: DURATION OF EXERCISE: HEART RATE REST: 83 BLOOD PRESSURE REST: 118/96 MAXIMUM HEART RATE ACHIEVED: 107. MAXIMUM BLOOD PRESSURE: 118/96 85% MPHR: 100% MPHR: METS: INDICATIONS: Chest pain. RESULTS: Baseline EKG revealed normal sinus rhythm without significant ST-T changes. With Lexiscan administration, heart rate changed from 82 to 107 beats per minute. Blood pressure changed from 118/90 to 107/68. EKG remained unremarkable and patient did not have any angina. She had some uncomfortable feeling in the chest that was transient. EKG did not reveal any ST-segment changes to indicate ischemia. By EKG criteria, this is an unremarkable Lexiscan stress test without any evidence of significant EKG changes or any clear-cut anginal symptoms. The nuclear scan results which are more pertinent, will be reported by the radiologist. LESLEY / JEREMIEN: [id number] /
[2018-08-07] MEDS ORDERED: MAGNESIUM OXIDE 400 MG TAB PO SCH (21:00)
[2018-08-08] MEDS ORDERED: ASPIRIN 325 MG TAB PO SCH (09:00)
[2018-08-28] MEDS ORDERED: ERGOCALCIFEROL 50,000 UNIT CAP PO SCH (09:00)
== END 2018-08-07 18:40 | disposition home or self-care (01) ==
LOC: EC 20:58 → 1SOBS 08-07 00:07
PROVIDERS: ADMIT Hospitalist; ATTEND Hospitalist
DX: R07.89 Other chest pain (principal); I11.0 Hypertensive heart disease with heart failure; I50.9 Heart failure, unspecified; K21.9 Gastro-esophageal reflux disease without esophagitis; E78.5 Hyperlipidemia, unspecified; G43.909 Migraine, unspecified, not intractable, without status migrainosus; M79.7 Fibromyalgia; M19.91 Primary osteoarthritis, unspecified site; M81.0 Age-related osteoporosis without current pathological fracture; B19.20 Unspecified viral hepatitis C without hepatic coma; G62.9 Polyneuropathy, unspecified; G47.33 Obstructive sleep apnea (adult) (pediatric); F41.9 Anxiety disorder, unspecified; E66.9 Obesity, unspecified; Z68.35 Body mass index [BMI] 35.0-35.9, adult; Z79.82 Long term (current) use of aspirin; Z79.899 Other long term (current) drug therapy; Z88.8 Allergy status to other drugs, medicaments and biological substances; Z85.038 Personal history of other malignant neoplasm of large intestine; Z92.21 Personal history of antineoplastic chemotherapy; Z85.42 Personal history of malignant neoplasm of other parts of uterus; Z87.891 Personal history of nicotine dependence; Z90.710 Acquired absence of both cervix and uterus; Z86.79 Personal history of other diseases of the circulatory system; Z90.49 Acquired absence of other specified parts of digestive tract; Z80.1 Family history of malignant neoplasm of trachea, bronchus and lung; Z80.8 Family history of malignant neoplasm of other organs or systems
CPT/HCPCS: 99285; 36415; 94760; 93005; 93017; 93306; 80061; 80053; 82550 ×2; 82553 ×2; 83735; 84484 ×2; 85025; 85610; 85730; 71046; 78452; G0378; A9500; J2785

== ENCOUNTER → 2019-05-15 | Outpatient (CLI) | payer MEDICARE, OTHER ==
--- NOTE | 2019-05-15 11:16 | BD ---
EXAMINATION TYPE: Axial Bone Density DATE OF EXAM: 05/15/2019 COMPARISON: NONE CLINICAL HISTORY: M81.0 Height: 62.7 IN Weight: 273 LBS FRAX RISK QUESTIONS: Secondary Osteoporosis: 3. Menopause before 45: YES PARTIAL HYST AGE 39 5. Chronic liver disease: YES HEPATITIS C IN 1998 RISK FACTORS HISTORY OF: Family History of Osteoporosis: YES GRANDMOTHER (P) Active: YES Diet low in dairy products/other sources of calcium: YES Postmenopausal woman: PARTIAL HYST AGE 39 MEDICATIONS: Additional Medications: VIT D,NITROGLYCERIN, ASPIRIN, ATIVAN, CARAFATE, LASIX, LISINOPRIL, MAGNESIUM, METOPROLOL, NORCO, PAMELOR, TOPOMAX, MULTI VIT Additional History: COLON CANCER WITH CHEMO 2014 EXAM MEASUREMENTS: Bone mineral densitometry was performed using the [employer] System. Bone mineral density as measured about the Lumbar spine is: ----- L1-L4(G/cm2): 1.018 T Score Values are as follows: ----- L2: -1.7 ----- L3: -1.3 ----- L4: -1.3 ----- L1-L4: -1.3 Bone mineral density BASELINE Bone mineral density about the R hip (g/cm2): 0.872 Bone mineral density about the L hip (g/cm2): 0.831 T Score values are as follows: -----R Neck: -1.2 -----L Neck: -1.5 -----R Total: -0.3 -----L Total: -0.4 Bone mineral density BASELINE IMPRESSION: Osteopenia (T Score between -2.5 and -1). There is slightly increased risk of fracture and the patient may be considered for treatment. Re-Screen 2-5 years. NOTE: T-SCORE=SD OF THE YOUNG ADULT MEAN.
--- NOTE | 2019-05-16 11:53 | MM ---
Reason for exam: screening (asymptomatic). Last mammogram was performed 2 years and 6 months ago. History: Patient is postmenopausal and has history of other cancer at age 39. Family history of breast cancer in aunt at age 50. Physical Findings: A clinical breast exam by your physician is recommended on an annual basis and results should be correlated with mammographic findings. MG 3D Screening Mammo W/Cad Bilateral CC, MLO, and XCCL view(s) were taken. Prior study comparison: November 09, 2016, bilateral MG 3d screening mammo w/cad. August 22, 2015, mammogram, performed at [facility]. The breast tissue is heterogeneously dense. This may lower the sensitivity of mammography. Finding: There is a 8 mm obscured oval mass located 11 cm from the nipple in the outer quadrant, posterior position of the right breast on CC 31/70, may be prominent lymph node on MLO but advise spot. ASSESSMENT: Incomplete: need additional imaging evaluation, BI-RAD 0 RECOMMENDATION: Special view mammogram of the right breast. If lesion persists on supplemental views, image directed ultrasound is recommended. [facility] will attempt to contact patient to return for supplemental views and ultrasound if indicated.
== END | disposition home or self-care (01) ==
LOC: RADMAMWWP 08:44
PROVIDERS: ATTEND Internal Medicine
DX: Z12.31 Encounter for screening mammogram for malignant neoplasm of breast (principal); M85.80 Other specified disorders of bone density and structure, unspecified site; Z29.9 Encounter for prophylactic measures, unspecified; M81.0 Age-related osteoporosis without current pathological fracture
CPT/HCPCS: 77063; 77067; 77080

== ENCOUNTER → 2019-05-15 | Outpatient (CLI) | payer MEDICARE, OTHER ==
--- NOTE | 2019-05-15 14:30 | CT ---
EXAMINATION TYPE: CT abdomen pelvis w con DATE OF EXAM: 05/15/2019 COMPARISON: 06/14/2018 and 05/13/2016 HISTORY: 63-year-old female Colon cancer TECHNIQUE: Contiguous axial scanning of the abdomen and pelvis following administration of 100 ml Iso ching 300 IV contrast. Delayed images through the kidneys and coronal/sagittal reconstructions perform ed. CT DLP: 2307 mGycm Automated exposure control for dose reduction was used. FINDINGS: Heart upper limits of normal in size without pericardial effusion. Stable right millimeter right midd le lobe pulmonary nodule dating back to at least 04/28/2013 compatible with a benign etiology. Liver borderline enlarged 17.9 cm no focal lesion is seen. Portal venous system is patent. No biliary ductal dilatation. Cholecystectomy clips. Adrenal glands, spleen, and pancreas appear within normal limits. Large upper pole renal cyst on the right measuring 8.2 cm, unchanged. Nonobstructive 4 mm left lower pole renal calculus. No dilated small bowel, free fluid, or free air. Prior ventral abdominal wall mesh repair along the epigastrium. Mild to moderate stool with oral contrast progressed to the proximal transverse colon. Normal appendi x. Sigmoid diverticulosis. No pericolonic inflammatory change. Postsurgical changes of resection and reanastomosis near the splenic flexure. Bladder urine distended. Uterus surgically absent. Left ovary is visualized measuring up to 3.3 x 2.2 cm, not significantly changed from 05/13/2016. No abnormal fluid collection the pelvis or pelvic lymphadenopathy. Bones: Facet arthropathy lower lumbar spine with grade 1 anterolisthesis at L5-S1. Anterior endplate spondylosis lower thoracic spine. No osseous destructive process. IMPRESSION: 1. PRIOR RESECTION AND REANASTOMOSIS AT THE LEVEL OF THE SPLENIC FLEXURE OF THE COLON. 2. NO EVIDENCE FOR RECURRENT OR METASTATIC DISEASE IN THE ABDOMEN OR PELVIS. A 5 MM RIGHT MIDDLE LOBE PULMONARY NODULE IS STABLE AND BENIGN. 3. SIGMOID DIVERTICULOSIS WITHOUT ACUTE DIVERTICULITIS. 4 MM NONOBSTRUCTIVE LEFT RENAL CALCULUS.
== END | disposition home or self-care (01) ==
LOC: RADCTMAIN 10:00
PROVIDERS: ATTEND Internal Medicine Hematology & Oncology
DX: K57.30 Diverticulosis of large intestine without perforation or abscess without bleeding (principal); N20.0 Calculus of kidney; Z90.49 Acquired absence of other specified parts of digestive tract
CPT/HCPCS: 74177; Q9967

== ENCOUNTER → 2019-05-29 | Outpatient (CLI) | payer MEDICARE, OTHER ==
--- NOTE | 2019-05-29 10:52 | MM ---
Reason for exam: additional evaluation requested from abnormal screening. Last mammogram was performed less than 1 month ago. History: Patient is postmenopausal, has history of other cancer at age 39, history of endometrial cancer, and history of colon cancer. Family history of breast cancer in aunt at age 50. Physical Findings: Nurse did not find any significant physical abnormalities on exam. MG 3D Work Up W/Cad RT Spot compression CC and LM view(s) were taken of the right breast. Prior study comparison: May 15, 2019, bilateral MG 3d screening mammo w/cad. November 09, 2016, bilateral MG 3d screening mammo w/cad. There is chronic nodularity in the right breast, corresonds to benign axillary lymph nodes, stable from older mammograms. These results were verbally communicated with the patient and result sheet given to the patient on 05/29/19. ASSESSMENT: Benign, BI-RAD 2 RECOMMENDATION: Return to routine screening mammogram schedule for both breasts.
== END | disposition home or self-care (01) ==
LOC: RADMAMWWP 10:14
PROVIDERS: ATTEND Internal Medicine
DX: R92.8 Other abnormal and inconclusive findings on diagnostic imaging of breast (principal)
CPT/HCPCS: 77065; G0279; 77061

== ENCOUNTER 2019-09-04 15:20 | Emergency (ER) | payer MEDICARE, OTHER ==
[2019-09-04] MEDS ORDERED: SODIUM CHLORIDE 0.9% 1,000 ML IV STA ×2 (15:51)
[2019-09-04] MEDS ORDERED: DICYCLOMINE 10 MG/ML 2 ML AMP IM STA (15:52)
[2019-09-04 16:00] VITALS: RESP 20; TEMP 97.6
--- NOTE | 2019-09-04 16:02 | ED ---
Abdominal Pain HPI - General Stated Complaint: Abd pain Time Seen by Provider: 09/04/19 15:29 Source: patient, cancer program consultant, RN notes reviewed, old records reviewed Mode of arrival: EMS Limitations: no limitations - History of Present Illness Initial Comments: This patient's a pleasant 63-year-old female presents to the ED today for concern for abdominal cramping after taking her colonoscopy prep. She is scheduled for colonoscopy tomorrow for follow up annually after diagnosis of colon cancer. She reports that she bought a [id number] cheaper MiraLAX and reports that she's never had a reaction to her prep. She states today while she took her prep she had intense abdominal cramping. She reports that she went to the bathroom and did have some loose stool. She states that she then felt weak and diaphoretic. She reports it took her 15 minutes to feel well enough to get out of the bathroom and returned to her bedroom. She reports that she told her son who called her in the ambulance to have her evaluated concern for possible heart attack with her being weak and diaphoretic. She denies chest pain at this time. - Related Data Home Medications Medication Instructions Recorded Confirmed LORazepam [Ativan] 0.5 mg PO BID 08/29/14 08/31/19 Lisinopril [Prinivil] 20 mg PO HS 08/29/14 08/31/19 Topiramate [Topamax] 25 mg PO BID 08/29/14 08/31/19 Sucralfate [Carafate] 1 gm PO BID 04/03/15 08/31/19 Furosemide [Lasix] 20 mg PO QAM 09/01/15 08/31/19 Magnesium 200 mg PO HS 09/23/16 08/31/19 Nortriptyline HCl [Pamelor] 25 mg PO HS 09/29/16 08/31/19 HYDROcodone/APAP 7.5-325MG [[place] 1 tab PO Q8H PRN 08/26/17 08/31/19 7.5-325] Multivitamins, Thera [Multivitamin 2 tab PO DAILY 06/14/18 08/31/19 (formulary)] Cholecalciferol [Vitamin D3 (25 2,000 unit PO DAILY 08/31/19 08/31/19 Mcg = 1000 Iu)] Metoprolol Tartrate [Lopressor] 25 mg PO QAM 08/31/19 08/31/19 Previous Rx's Medication Instructions Recorded Aspirin EC [Ecotrin Low Dose] 81 mg PO DAILY #30 tablet. 06/15/18 Nitroglycerin Sl Tabs [Nitrostat] 0.4 mg SUBLINGUAL Q5M PRN #20 tab 06/15/18 Allergies Allergy/AdvReac Type Severity Reaction Status Date / Time fluoxetine Allergy WGT GAIN, Verified 08/31/19 15:42 CONFUSION, NAUSEA gabapentin Allergy Confusion,and Verified 08/31/19 15:42 weight gain methylphenidate HCl Allergy Confusion Verified 08/31/19 15:42 [From Concerta] and wt gain pregabalin [From Lyrica] Allergy Confusion,a Verified 08/31/19 15:42 ggresion Review of Systems ROS Statement: Those systems with pertinent positive or pertinent negative responses have been documented in the HPI. ROS Other: All systems not noted in ROS Statement are negative. Past Medical History Past Medical History: Cancer, Heart Failure, Fibromyalgia, GERD/Reflux, Hypertension, Liver Disease, Osteoarthritis (OA), Sleep Apnea/CPAP/BIPAP Additional Past Medical History / Comment(s): HX BRADYCARDIA AND TACHYCARDIA, HX HEP C 1998. PERIPHERAL EDEMA. HX MIGRAINE. ONE SEIZURE 2002 (states she feels it was from prozac). OCCIPITAL NERVE DAMAGE PER MRI. HX CERVICAL/UTERINE CA; COLON CA DIAGNOSED IN JUL 2014-last chemo 03-27-15. UNABLE TO USE CPAP. osteoporosis, neuropathy. History of Any Multi-Drug Resistant Organisms: None Reported Past Surgical History: Bowel Resection, Cholecystectomy, Hernia Repair, Hysterectomy, Orthopedic Surgery Additional Past Surgical History / Comment(s): COLON RESECTION FOR CA AUG 2014. RT FOOT BONE SPUR, L KNEE MENISCUS SX, RT INDEX FINGER TENDON REPAIR. lt power port placement & removed,rt power port inserted and removed Past Anesthesia/Blood Transfusion Reactions: Family History of Problems w/ Anesthesia Additional Past Anesthesia/Blood Transfusion Reaction / Comment(s): DAUGHTER AND MOTHER GET SEVERE PONV. Past Psychological History: Anxiety Smoking Status: Former smoker Past Alcohol Use History: None Reported Past Drug Use History: Marijuana - Past Family History Mother Family Medical History: Cancer Additional Family Medical History / Comment(s): LUNG,BONE,BRAIN Daughter(s) Family Medical History: Cancer Additional Family Medical History / Comment(s): UTERINE, CERVICAL General Exam - General Exam Comments Initial Comments: 63-year-old female. Alert and oriented. No distress. Limitations: no limitations General appearance: alert, in no apparent distress Head exam: Present: atraumatic, normocephalic, normal inspection Eye exam: Present: normal appearance, PERRL, EOMI. Absent: scleral icterus, conjunctival injection, periorbital swelling ENT exam: Present: normal exam, mucous membranes moist Neck exam: Present: normal inspection. Absent: tenderness, meningismus, lymphadenopathy Respiratory exam: Present: normal lung sounds bilaterally. Absent: respiratory distress, wheezes, rales, rhonchi, stridor Cardiovascular Exam: Present: regular rate, normal rhythm, normal heart sounds. Absent: systolic murmur, diastolic murmur, rubs, gallop, clicks GI/Abdominal exam: Present: soft, tenderness (right pain), normal bowel sounds. Absent: distended, guarding, rebound, rigid Extremities exam: Present: normal inspection, full ROM, normal capillary refill. Absent: tenderness, pedal edema, joint swelling, calf tenderness Back exam: Present: normal inspection Neurological exam: Present: alert, oriented X3, CN II-XII intact Psychiatric exam: Present: normal affect, normal mood Skin exam: Present: warm, dry, intact, normal color. Absent: rash Course Vital Signs 09/04/19 15:58 Temperature 97.6 F Pulse Rate 70 Respiratory 20 Rate Blood Pressure 119/73 O2 Sat by Pulse 96 Oximetry Medical Decision Making - Medical Decision Making 53-year-old female presents today for evaluation for concerns for a diaphoretic episode, abdominal cramping and pain after taking her prep at scheduled for colonoscopy tomorrow. Patient at this time has a normal EKG. Patient's labs reviewed and are normal. Patient's troponin test is negative. a Patient denies any chest pain. Patient is advised that this likely a vasovagal reaction due to abdominal cramping from her cold prep. After dose of Bentyl she states she's feeling much better. I discussed that this time Patient likely not finish her prep and cancer colonoscopy for a later date. Patient is agreeable to this treatment plan will comply. Return parameters were discussed. - Lab Data Result diagrams: 09/04/19 16:18 09/04/19 16:18 Lab Results 09/04/19 09/04/19 09/04/19 Range/Units 16:18 16:18 16:18 WBC 8.4 (3.8-10.6) k/uL RBC 4.54 (3.80-5.40) m/uL Hgb 13.7 (11.4-16.0) gm/dL Hct 42.0 (34.0-46.0) % MCV 92.6 (80.0-100.0) fL MCH 30.1 (25.0-35.0) pg MCHC 32.5 (31.0-37.0) g/dL RDW 13.6 (11.5-15.5) % Plt Count 148 L (150-450) k/uL Neutrophils % 80 % Lymphocytes % 14 % Monocytes % 3 % Eosinophils % 1 % Basophils % 1 % Neutrophils # 6.8 (1.3-7.7) k/uL Lymphocytes # 1.2 (1.0-4.8) k/uL Monocytes # 0.3 (0-1.0) k/uL Eosinophils # 0.1 (0-0.7) k/uL Basophils # 0.0 (0-0.2) k/uL PT 9.6 (9.0-12.0) sec INR 0.9 (<1.2) APTT 19.5 L (22.0-30.0) sec Sodium 137 (137-145) mmol/L Potassium 3.9 (3.5-5.1) mmol/L Chloride 107 (98-107) mmol/L Carbon Dioxide 22 (22-30) mmol/L Anion Gap 8 mmol/L BUN 16 (7-17) mg/dL Creatinine 0.75 (0.52-1.04) mg/dL Est GFR (CKD-EPI)AfAm >90 (>60 ml/min/1.73 sqM) Est GFR (CKD-EPI)NonAf 85 (>60 ml/min/1.73 sqM) Glucose 107 H (74-99) mg/dL Calcium 9.1 (8.4-10.2) mg/dL Magnesium 1.9 (1.6-2.3) mg/dL Total Bilirubin 0.9 (0.2-1.3) mg/dL AST 23 (14-36) U/L ALT 21 (4-34) U/L Alkaline Phosphatase 78 (38-126) U/L Troponin I (0.000-0.034) ng/mL Total Protein 7.0 (6.3-8.2) g/dL Albumin 4.1 (3.5-5.0) g/dL Amylase 55 (30-110) U/L Lipase 105 (23-300) U/L 09/04/19 Range/Units 16:18 WBC (3.8-10.6) k/uL RBC (3.80-5.40) m/uL Hgb (11.4-16.0) gm/dL Hct (34.0-46.0) % MCV (80.0-100.0) fL MCH (25.0-35.0) pg MCHC (31.0-37.0) g/dL RDW (11.5-15.5) % Plt Count (150-450) k/uL Neutrophils % % Lymphocytes % % Monocytes % % Eosinophils % % Basophils % % Neutrophils # (1.3-7.7) k/uL Lymphocytes # (1.0-4.8) k/uL Monocytes # (0-1.0) k/uL Eosinophils # (0-0.7) k/uL Basophils # (0-0.2) k/uL PT (9.0-12.0) sec INR (<1.2) APTT (22.0-30.0) sec Sodium (137-145) mmol/L Potassium (3.5-5.1) mmol/L Chloride (98-107) mmol/L Carbon Dioxide (22-30) mmol/L Anion Gap mmol/L BUN (7-17) mg/dL Creatinine (0.52-1.04) mg/dL Est GFR (CKD-EPI)AfAm (>60 ml/min/1.73 sqM) Est GFR (CKD-EPI)NonAf (>60 ml/min/1.73 sqM) Glucose (74-99) mg/dL Calcium (8.4-10.2) mg/dL Magnesium (1.6-2.3) mg/dL Total Bilirubin (0.2-1.3) mg/dL AST (14-36) U/L ALT (4-34) U/L Alkaline Phosphatase (38-126) U/L Troponin I <0.012 (0.000-0.034) ng/mL Total Protein (6.3-8.2) g/dL Albumin (3.5-5.0) g/dL Amylase (30-110) U/L Lipase (23-300) U/L 09/04/19 16:32 EKG shows normal sinus rhythm multiple chief. Borderline EKG. Ventricular rate of 67 bpm.. Unable to 194 ms. QS Patient is 72 ms. QT QTc is 410/433 ms. - Radiology Data Radiology results: report reviewed Chest x-ray is negative for any acute process. Disposition Clinical Impression: Vagal reaction, Abdominal cramping Disposition: HOME SELF-CARE Condition: Good Instructions (If sedation given, give patient instructions): Lightheadedness (ED), Abdominal Pain (ED) Additional Instructions: Patient has a follow-up with your primary care doctor. Recommended canceling colonoscopy at this time. Schedule for later date. Return to ED if any alarming signs or symptoms occur. Is patient prescribed a controlled substance at d/c from ED?: No Referrals: Real Ladd MD [Primary Care Provider] - 1-2 days Time of Disposition: 17:23
[2019-09-04 16:29] LABS: Basophils % (A) 1 %; Eosinophils # (A) 0.1 k/uL (0-0.7); Eosinophils % (A) 1 %; HGB 13.7 gm/dL (11.4-16.0); Lymphocytes # (A) 1.2 k/uL (1.0-4.8); Lymphocytes % (A) 14 %; MCH 30.1 pg (25.0-35.0); MCHC 32.5 g/dL (31.0-37.0); MCV 92.6 fL (80.0-100.0); Mean Platelet Volume 8.2; Monocytes # (A) 0.3 k/uL (0-1.0); Monocytes % (A) 3 %; Neutrophils # (A) 6.8 k/uL (1.3-7.7); Neutrophils % (A) 80 %; Platelet Count 148 k/uL (150-450); RBC 4.54 m/uL (3.80-5.40); RDW 13.6 % (11.5-15.5); WBC 8.4 k/uL (3.8-10.6)
[2019-09-04 16:37] LABS: ALT 21 U/L (4-34); AST 23 U/L (14-36); African American GFR (CKD) >90 (>60 ml/min/1.73 sqM); Albumin 4.1 g/dL (3.5-5.0); Alkaline Phosphatase 78 U/L (38-126); Amylase 55 U/L (30-110); Anion Gap 8 mmol/L; Blood Urea Nitrogen 16 mg/dL (7-17); Calcium 9.1 mg/dL (8.4-10.2); Carbon Dioxide 22 mmol/L (22-30); Chloride 107 mmol/L (98-107); Glucose 107 mg/dL (74-99); Magnesium 1.9 mg/dL (1.6-2.3); Non-African American GFR(CKD) 85 (>60 ml/min/1.73 sqM); Potassium 3.9 mmol/L (3.5-5.1); Sodium 137 mmol/L (137-145); Total Bilirubin 0.9 mg/dL (0.2-1.3)
--- NOTE | 2019-09-04 16:40 | XR ---
EXAMINATION TYPE: XR chest 2V DATE OF EXAM: 09/04/2019 COMPARISON: 08/06/2018 HISTORY: Chest pain TECHNIQUE: FINDINGS: Heart is normal. Lungs are clear. Diaphragm is normal. Bony thorax appears normal. IMPRESSION: Normal chest. No change.
[2019-09-04 16:44] LABS: INR 0.9 (<1.2); Prothrombin Time 9.6 sec (9.0-12.0)
[2019-09-04 16:49] LABS: Partial Thromboplastin Time 19.5 sec (22.0-30.0)
[2019-09-04 17:42] VITALS: BP 116/72; PULSE 71
== END 2019-09-04 17:49 | disposition home or self-care (01) ==
LOC: EC 15:20
DX: R10.9 Unspecified abdominal pain (principal); R55 Syncope and collapse; R61 Generalized hyperhidrosis; R53.1 Weakness; I11.0 Hypertensive heart disease with heart failure; I50.9 Heart failure, unspecified; F41.9 Anxiety disorder, unspecified; Z87.891 Personal history of nicotine dependence; Z88.8 Allergy status to other drugs, medicaments and biological substances; Z79.899 Other long term (current) drug therapy; Z85.038 Personal history of other malignant neoplasm of large intestine; Z85.41 Personal history of malignant neoplasm of cervix uteri; Z86.69 Personal history of other diseases of the nervous system and sense organs; Z90.710 Acquired absence of both cervix and uterus; Z92.21 Personal history of antineoplastic chemotherapy; Z90.49 Acquired absence of other specified parts of digestive tract
CPT/HCPCS: 36415; 93005; 80053; 82150; 83690; 83735; 84484; 85025; 85610; 85730; 71046; 99284; 96360; 96372; J0500

== ENCOUNTER 2020-03-05 08:17 | Day surgery (SDC) | payer MEDICARE, OTHER ==
[2020-02-29 13:31] VITALS: BMI 51.3
[~2020-03-05 08:17] MED LIST changes: -LIDOCAINE 1% 20 ML VIAL (10MG/ML) FOR IV START INTRADERMA PRN
--- NOTE | 2020-03-05 08:47 | P.GSHP ---
History of Present Illness H&P Date: 03/05/20 CHIEF COMPLAINT: GERD and colon screen HISTORY OF PRESENT ILLNESS: The patient is a 64-year-old female who presents with gastroesophageal reflux disease and need for colon screen. Upper and lower endoscopy were offered for further evaluation and management. PAST MEDICAL HISTORY: Please see list. PAST SURGICAL HISTORY: Please see list. MEDICATIONS: Please see list. ALLERGIES: Please see list. SOCIAL HISTORY: No illicit drug use FAMILY HISTORY: No reports of Crohn disease or ulcerative colitis. REVIEW OF ORGAN SYSTEMS: CONSTITUTIONAL: No reports of fevers or chills. GI: Denies any blood in stools or constipation. PHYSICAL EXAM: VITAL SIGNS: Stable GENERAL: Well-developed pleasant in no acute distress. HEENT: No scleral icterus. Extraocular movements grossly intact. Moist buccal mucosa. NECK: Supple without lymphadenopathy. CHEST: Unlabored respirations. Equal bilateral excursions. CARDIOVASCULAR: Regular rate and rhythm. Distal 2+ pulses. ABDOMEN: Soft, nondistended. MUSCULOSKELETAL: No clubbing, cyanosis, or edema. ASSESSMENT: 1. Gastroesophageal reflux disease 2. Colon screen. PLAN: 1. Recommend proceeding with an upper and lower endoscopy Past Medical History Past Medical History: Cancer, Chest Pain / Angina, Heart Failure, Fibromyalgia, GERD/Reflux, Hypertension, Liver Disease, Osteoarthritis (OA), Sleep Apnea/CPAP/BIPAP Additional Past Medical History / Comment(s): HX BRADYCARDIA AND TACHYCARDIA, HX HEP C 1998. occ lower leg EDEMA. HX MIGRAINE. ONE SEIZURE 2002 (states she feels it was from prozac). OCCIPITAL NERVE DAMAGE PER MRI. HX CERVICAL/UTERINE CA; COLON CA DIAGNOSED IN JUL 2014-last chemo 03-27-15. UNABLE TO USE CPAP. osteoporosis, neuropathy. large hiatal hrenia, History of Any Multi-Drug Resistant Organisms: None Reported Past Surgical History: Bowel Resection, Cholecystectomy, Hernia Repair, Hysterectomy, Orthopedic Surgery Additional Past Surgical History / Comment(s): COLON RESECTION FOR CA . RT FOOT BONE SPUR, L KNEE MENISCUS SX, RT INDEX FINGER TENDON REPAIR. moe port placements & removed, Past Anesthesia/Blood Transfusion Reactions: Family History of Problems w/ Anesthesia Additional Past Anesthesia/Blood Transfusion Reaction / Comment(s): DAUGHTER AND MOTHER GET SEVERE PONV. Smoking Status: Former smoker - Past Family History Mother Family Medical History: Cancer Additional Family Medical History / Comment(s): LUNG,BONE,BRAIN Daughter(s) Family Medical History: Cancer Additional Family Medical History / Comment(s): UTERINE, CERVICAL Medications and Allergies Home Medications Medication Instructions Recorded Confirmed Type LORazepam [Ativan] 0.5 mg PO BID 08/29/14 03/05/20 History Topiramate [Topamax] 25 mg PO BID 08/29/14 03/05/20 History lisinopriL [Prinivil] 20 mg PO HS 08/29/14 03/05/20 History Sucralfate [Carafate] 1 gm PO BID 04/03/15 03/05/20 History Furosemide [Lasix] 20 mg PO QAM 09/01/15 03/05/20 History Magnesium 200 mg PO HS 09/23/16 03/05/20 History Nortriptyline HCl [Pamelor] 25 mg PO HS 09/29/16 03/05/20 History Multivitamins, Thera [Multivitamin 1 tab PO DAILY 06/14/18 03/05/20 History (formulary)] Aspirin EC [Ecotrin Low Dose] 81 mg PO DAILY #30 tablet. 06/15/18 03/05/20 Rx Nitroglycerin Sl Tabs [Nitrostat] 0.4 mg SUBLINGUAL Q5M PRN #20 tab 06/15/18 03/05/20 Rx Cholecalciferol [Vitamin D3 (25 2,000 unit PO DAILY 08/31/19 03/05/20 History Mcg = 1000 Iu)] Metoprolol Tartrate [Lopressor] 25 mg PO QAM 08/31/19 03/05/20 History HYDROcodone/APAP 10-325MG [[place] 1 tab PO TID PRN 02/04/20 03/05/20 History 10-325] Allergies Allergy/AdvReac Type Severity Reaction Status Date / Time fluoxetine Allergy WGT GAIN, Verified 03/05/20 08:38 CONFUSION, NAUSEA gabapentin Allergy Confusion,and Verified 03/05/20 08:38 weight gain methylphenidate HCl Allergy Confusion Verified 03/05/20 08:38 [From Concerta] and wt gain pregabalin [From Lyrica] Allergy Confusion,a Verified 03/05/20 08:38 ggresion
[2020-03-05 08:55] VITALS: TEMP 97.2
[2020-03-05] MEDS ORDERED: LIDOCAINE 1% INJ 10MG/ML (20 ML MDV) ONE (09:41)
[2020-03-05] MEDS ORDERED: PROPOFOL 10 MG/ML 20 ML VIAL IV ONE (09:41)
--- NOTE | 2020-03-05 10:21 | P.PCN ---
Date of Procedure: 03/05/20 Description of Procedure: PREOPERATIVE DIAGNOSIS: Gastroesophageal reflux disease. Morbid obesity. POSTOPERATIVE DIAGNOSIS: Morbid obesity. Gastritis. Gastroesophageal reflux disease. OPERATION: Esophagogastroduodenoscopy with biopsies along antrum. SURGEON: Colleen Mackenzie MD ANESTHESIA: MAC. INDICATIONS: The patient is a 64-year-old female who presents with a history of reflux disease. Benefits and risks of the procedure were described. Informed consent was obtained. DESCRIPTION: The patient was brought into the endoscopy suite and laid in the left lateral decubitus position. An Olympus gastroscope was passed along the posterior oropharynx down to the distal esophagus where the squamocolumnar junction was encountered at 40 cm from the incisors. The stomach was entered and no bile reflux was found. Additional findings are listed below. Biopsies with cold forceps were obtained of the antrum. The first through third portion of the duodenum was examined and unremarkable. Retroflexion of the scope confirmed Hill grade 2 lower esophageal valve. The squamocolumnar junction demonstrated LA grade B erosive esophagitis. The stomach was desufflated. The patient tolerated the procedure well. FINDINGS: Squamocolumnar junction 40 cm from the incisors. Diaphragmatic hiatus at 40 cm. Hill grade 2 lower esophageal valve. LA grade B erosive esophagitis. No active duodenitis. Chronic gastritis RECOMMENDATIONS: Upper endoscopy as needed.
--- NOTE | 2020-03-05 10:24 | P.PCN ---
Date of Procedure: 03/05/20 Description of Procedure: PREOPERATIVE DIAGNOSIS: Personal history of colon cancer Family history malignant colon polyps POSTOPERATIVE DIAGNOSIS: Personal history of colon cancer Family history malignant colon polyps Sigmoid diverticulosis Descending colon polyp OPERATION: Colonoscopy to the ileocecal valve and appendiceal orifice, cecum Colonoscopy with cold forceps biopsy SURGEON: Colleen Mackenzie MD. ANESTHESIA: MAC. INDICATIONS: The patient is a 64-year-old female who presents family history of malignant colon polyps and personal history of colon cancer, 5 years ago. Last colonoscopy 2 years ago. Benefits and risks were described and informed consent was obtained. DESCRIPTION OF PROCEDURE: The patient had undergone MiraLAX, Gatorade, Dulcolax prep. She had been brought into the operating room and laid in the left lateral decubitus position. After adequate intravenous sedation, the rectum was examined with 2% lidocaine jelly. No external hemorrhoids were encountered. The rectal tone was within normal limits. No lesions were palpated in the rectal vault. An Olympus colonoscope was advanced until the cecum, ileocecal valve and appendiceal orifice were clearly viewed. The prep was fair. Sigmoid diverticulosis was encountered. Hyperplastic polyp from the descending colon was removed using cold forceps. No evidence of focal colitis was found. Retroflexion of the scope demonstrated grade 1 internal hemorrhoids without active bleeding or inflammation. The colon was desufflated. The patient had tolerated the procedure well. Withdrawal time was over 6 minutes. FINDINGS: Aronchick preparation quality scale 3 (1-5) Internal hemorrhoids, grade 1 No external hemorrhoids No arteriovenous malformations. Sigmoid diverticulosis Removal of 1 polyp: - Cold forceps biopsy at 35 cm from the anal verge, 4 mm polyp, descending colon No focal colitis. RECOMMENDATIONS: Repeat colonoscopy 5 years, 2024 Plan - Discharge Summary New Discharge Prescriptions: Continue Topiramate [Topamax] 25 mg PO BID lisinopriL [Prinivil] 20 mg PO HS LORazepam [Ativan] 0.5 mg PO BID Sucralfate [Carafate] 1 gm PO BID Furosemide [Lasix] 20 mg PO QAM Magnesium 200 mg PO HS Nortriptyline HCl [Pamelor] 25 mg PO HS Multivitamins, Thera [Multivitamin (formulary)] 1 tab PO DAILY Aspirin EC [Ecotrin Low Dose] 81 mg PO DAILY #30 tablet. Nitroglycerin Sl Tabs [Nitrostat] 0.4 mg SUBLINGUAL Q5M PRN #20 tab PRN Reason: Chest Pain Metoprolol Tartrate [Lopressor] 25 mg PO QAM Cholecalciferol [Vitamin D3 (25 Mcg = 1000 Iu)] 2,000 unit PO DAILY HYDROcodone/APAP 10-325MG [[place] 10-325] 1 tab PO TID PRN PRN Reason: Pain Discharge Medication List LORazepam [Ativan] 0.5 mg PO BID 08/29/14 [History] Topiramate [Topamax] 25 mg PO BID 08/29/14 [History] lisinopriL [Prinivil] 20 mg PO HS 08/29/14 [History] Sucralfate [Carafate] 1 gm PO BID 04/03/15 [History] Furosemide [Lasix] 20 mg PO QAM 09/01/15 [History] Magnesium 200 mg PO HS 09/23/16 [History] Nortriptyline HCl [Pamelor] 25 mg PO HS 09/29/16 [History] Multivitamins, Thera [Multivitamin (formulary)] 1 tab PO DAILY 06/14/18 [History] Aspirin EC [Ecotrin Low Dose] 81 mg PO DAILY #30 tablet. 06/15/18 [Rx] Nitroglycerin Sl Tabs [Nitrostat] 0.4 mg SUBLINGUAL Q5M PRN #20 tab 06/15/18 [Rx] Cholecalciferol [Vitamin D3 (25 Mcg = 1000 Iu)] 2,000 unit PO DAILY 08/31/19 [History] Metoprolol Tartrate [Lopressor] 25 mg PO QAM 08/31/19 [History] HYDROcodone/APAP 10-325MG [[place] 10-325] 1 tab PO TID PRN 02/04/20 [History] Follow up [facility]ment(s[facility] [facility] [place] [place] - 03/19/20 Patient Instructions/Handouts: *[facility] - (Anesthesia) Endoscopy Discharge Instructions, Diverticulosis (DC), Colorectal Polyps (IP), Diverticulosis Diet (GEN), Colonoscopy (DC) Activity/Diet/Wound Care/Special Instructions: Repeat colonoscopy 5 years, 2024 Discharge Disposition: HOME SELF-CARE
[2020-03-05 10:40] VITALS: BP 110/64; PULSE 71; RESP 16
== END 2020-03-05 11:16 | disposition home or self-care (01) ==
LOC: ORWHC2ENDO 08:17
PROVIDERS: ATTEND Surgery Plastic and Reconstructive Surgery
DX: Z12.11 Encounter for screening for malignant neoplasm of colon (principal); K57.30 Diverticulosis of large intestine without perforation or abscess without bleeding; K29.50 Unspecified chronic gastritis without bleeding; K22.10 Ulcer of esophagus without bleeding; D12.4 Benign neoplasm of descending colon; Z85.038 Personal history of other malignant neoplasm of large intestine; Z80.0 Family history of malignant neoplasm of digestive organs; I25.10 Atherosclerotic heart disease of native coronary artery without angina pectoris; I11.0 Hypertensive heart disease with heart failure; I50.9 Heart failure, unspecified; M79.7 Fibromyalgia; E66.01 Morbid (severe) obesity due to excess calories; Z68.43 Body mass index [BMI] 50.0-59.9, adult; K21.9 Gastro-esophageal reflux disease without esophagitis; K76.9 Liver disease, unspecified; M19.90 Unspecified osteoarthritis, unspecified site; G47.33 Obstructive sleep apnea (adult) (pediatric); G62.9 Polyneuropathy, unspecified; M81.0 Age-related osteoporosis without current pathological fracture; Z86.19 Personal history of other infectious and parasitic diseases; R60.9 Edema, unspecified; G43.909 Migraine, unspecified, not intractable, without status migrainosus; G58.8 Other specified mononeuropathies; Z85.42 Personal history of malignant neoplasm of other parts of uterus; Z85.41 Personal history of malignant neoplasm of cervix uteri; Z92.21 Personal history of antineoplastic chemotherapy; Z90.49 Acquired absence of other specified parts of digestive tract; Z90.710 Acquired absence of both cervix and uterus; Z98.890 Other specified postprocedural states; Z87.891 Personal history of nicotine dependence; Z80.43 Family history of malignant neoplasm of testis; Z79.82 Long term (current) use of aspirin; Z79.891 Long term (current) use of opiate analgesic; Z79.899 Other long term (current) drug therapy; Z88.8 Allergy status to other drugs, medicaments and biological substances
CPT/HCPCS: 45380; 43239; 88305; 88342; J2001; J2704

== ENCOUNTER 2020-03-10 14:42 | Emergency (ER) | payer MEDICARE, OTHER ==
[2020-03-10 14:46] VITALS: RESP 18; TEMP 98.3
[2020-03-10] MEDS ORDERED: SODIUM CHLORIDE 0.9% 500 ML 500 ML IV STA (15:01)
--- NOTE | 2020-03-10 15:05 | ED ---
General Adult HPI <Jose Durham Dannie - Last Filed: 03/10/20 16:53> - General Source: patient, RN notes reviewed Mode of arrival: ambulatory Limitations: no limitations <Tremayne Ruby - Last Filed: 03/10/20 17:04> - General Chief complaint: Abdominal Pain Stated complaint: Abd Pain Time Seen by Provider: 03/10/20 14:47 - History of Present Illness Initial comments: 64-year-old female presents to the emergency department for a chief complaint of abdominal pain. Patient reports that she has a history of hernia repair with mesh in the right upper quadrant. Patient reports that on Tuesday she went to sit forward and felt a pop in the right side of her upper abdomen where her hernia mesh is located. Patient reports it has been a burning pain since that time. Patient called her surgeon who recommended she come to the emergency department for a CAT scan. Patient is still passing gas and stool.Patient has no other complaints at this time including shortness of breath, chest pain, nausea or vomiting, headache, or visual changes. (Tremayne Ruby) - Related Data Home Medications Medication Instructions Recorded Confirmed LORazepam [Ativan] 0.5 mg PO BID 08/29/14 03/10/20 Topiramate [Topamax] 25 mg PO BID 08/29/14 03/10/20 lisinopriL [Prinivil] 20 mg PO HS 08/29/14 03/10/20 Sucralfate [Carafate] 1 gm PO BID 04/03/15 03/10/20 Furosemide [Lasix] 20 mg PO QAM 09/01/15 03/10/20 Magnesium 200 mg PO HS 09/23/16 03/10/20 Nortriptyline HCl [Pamelor] 25 mg PO HS 09/29/16 03/10/20 Multivitamins, Thera [Multivitamin 1 tab PO DAILY 06/14/18 03/10/20 (formulary)] Cholecalciferol [Vitamin D3 (25 2,000 unit PO DAILY 08/31/19 03/10/20 Mcg = 1000 Iu)] Metoprolol Tartrate [Lopressor] 25 mg PO QAM 08/31/19 03/10/20 HYDROcodone/APAP 10-325MG [[place] 1 tab PO TID PRN 02/04/20 03/10/20 10-325] Previous Rx's Medication Instructions Recorded Aspirin EC [Ecotrin Low Dose] 81 mg PO DAILY #30 tablet. 06/15/18 Nitroglycerin Sl Tabs [Nitrostat] 0.4 mg SUBLINGUAL Q5M PRN #20 tab 06/15/18 Allergies Allergy/AdvReac Type Severity Reaction Status Date / Time fluoxetine Allergy WGT GAIN, Verified 03/10/20 16:40 CONFUSION, NAUSEA gabapentin Allergy Confusion,and Verified 03/10/20 16:40 weight gain methylphenidate HCl Allergy Confusion Verified 03/10/20 16:40 [From Concerta] and wt gain pregabalin [From Lyrica] Allergy Confusion,a Verified 03/10/20 16:40 ggresion Review of Systems ROS Other: All systems not noted in ROS Statement are negative. <Jose Durham - Last Filed: 03/10/20 16:53> ROS Other: All systems not noted in ROS Statement are negative. <Tremayne Ruby - Last Filed: 03/10/20 17:04> ROS Statement: Those systems with pertinent positive or pertinent negative responses have been documented in the HPI. Past Medical History Past Medical History: Cancer, Chest Pain / Angina, Heart Failure, Fibromyalgia, GERD/Reflux, Hypertension, Liver Disease, Osteoarthritis (OA), Sleep Apnea/CPAP/BIPAP Additional Past Medical History / Comment(s): HX BRADYCARDIA AND TACHYCARDIA, HX HEP C 1998. occ lower leg EDEMA. HX MIGRAINE. ONE SEIZURE 2002 (states she feels it was from prozac). OCCIPITAL NERVE DAMAGE PER MRI. HX CERVICAL/UTERINE CA; COLON CA DIAGNOSED IN JUL 2014-last chemo 03-27-15. UNABLE TO USE CPAP. osteoporosis, neuropathy. large hiatal hrenia, History of Any Multi-Drug Resistant Organisms: None Reported Past Surgical History: Bowel Resection, Cholecystectomy, Hernia Repair, Hysterectomy, Orthopedic Surgery Additional Past Surgical History / Comment(s): COLON RESECTION FOR CA . RT FOOT BONE SPUR, L KNEE MENISCUS SX, RT INDEX FINGER TENDON REPAIR. moe port placements & removed, Past Anesthesia/Blood Transfusion Reactions: Family History of Problems w/ Anesthesia Additional Past Anesthesia/Blood Transfusion Reaction / Comment(s): DAUGHTER AND MOTHER GET SEVERE PONV. Past Psychological History: Anxiety Smoking Status: Former smoker - Past Family History Mother Family Medical History: Cancer Additional Family Medical History / Comment(s): LUNG,BONE,BRAIN Daughter(s) Family Medical History: Cancer Additional Family Medical History / Comment(s): UTERINE, CERVICAL <Tremayne Ruby - Last Filed: 03/10/20 17:04> General Exam Limitations: no limitations General appearance: alert, in no apparent distress Head exam: Present: atraumatic, normocephalic, normal inspection Eye exam: Present: normal appearance, PERRL, EOMI. Absent: scleral icterus, conjunctival injection, periorbital swelling ENT exam: Present: normal exam, mucous membranes moist Neck exam: Present: normal inspection, full ROM. Absent: tenderness, meningismus, lymphadenopathy Respiratory exam: Present: normal lung sounds bilaterally. Absent: respiratory distress, wheezes, rales, rhonchi, stridor Cardiovascular Exam: Present: regular rate, normal rhythm, normal heart sounds. Absent: systolic murmur, diastolic murmur, rubs, gallop, clicks GI/Abdominal exam: Present: soft, tenderness (RUQ tenderness), normal bowel sounds. Absent: distended, guarding, rebound, rigid Neurological exam: Present: alert <Tremayne Ruby - Last Filed: 03/10/20 17:04> Course <Jose Durham - Last Filed: 03/10/20 16:53> Vital Signs 03/10/20 03/10/20 03/10/20 14:43 15:37 16:47 Temperature 98.3 F Pulse Rate 79 66 87 Respiratory 18 18 18 Rate Blood Pressure 152/87 159/59 133/69 O2 Sat by Pulse 98 97 98 Oximetry - Reevaluation(s) Reevaluation #1: 03/10/20 16:[address] Mackenzie who is familiar with this patient. Laboratory results, exam, vitals, and CT imaging reviewed, patient is stable for outpatient follow-up. (Jose Durham) Medical Decision Making - Lab Data Result diagrams: 03/10/20 15:02 03/10/20 15:02 <Jose Durham - Last Filed: 03/10/20 16:53> - Lab Data Result diagrams: 03/10/20 15:02 03/10/20 15:02 <Tremayne Ruby - Last Filed: 03/10/20 17:04> - Medical Decision Making Vitals are stable. CBC CMP is unremarkable. CT abdomen and pelvis shows a sigmoid diverticulosis without diverticulitis which patient is aware of. There is a nonobstructing left-sided nephrolithiasis which was discussed with patient. Exophytic cyst upper pole right kidney which patient states is stable and she has seen urology for several times. We did contact Dr. Bray as patient did have endoscopy with colonoscopy about a week ago. Patient is stable for discharge home and outpatient follow-up. She will return for any worsening symptoms. (Tremayne Ruby) - Lab Data Lab Results 03/10/20 03/10/20 03/10/20 Range/Units 15:02 15:02 15:02 WBC 6.5 (3.8-10.6) k/uL RBC 4.35 (3.80-5.40) m/uL Hgb 13.2 (11.4-16.0) gm/dL Hct 40.4 (34.0-46.0) % MCV 92.9 (80.0-100.0) fL MCH 30.3 (25.0-35.0) pg MCHC 32.6 (31.0-37.0) g/dL RDW 13.6 (11.5-15.5) % Plt Count 171 (150-450) k/uL Neutrophils % 65 % Lymphocytes % 27 % Monocytes % 4 % Eosinophils % 2 % Basophils % 0 % Neutrophils # 4.3 (1.3-7.7) k/uL Lymphocytes # 1.7 (1.0-4.8) k/uL Monocytes # 0.3 (0-1.0) k/uL Eosinophils # 0.1 (0-0.7) k/uL Basophils # 0.0 (0-0.2) k/uL Sodium 141 (137-145) mmol/L Potassium 3.8 (3.5-5.1) mmol/L Chloride 108 H (98-107) mmol/L Carbon Dioxide 25 (22-30) mmol/L Anion Gap 8 mmol/L BUN 15 (7-17) mg/dL Creatinine 0.75 (0.52-1.04) mg/dL Est GFR (CKD-EPI)AfAm >90 (>60 ml/min/1.73 sqM) Est GFR (CKD-EPI)NonAf 84 (>60 ml/min/1.73 sqM) Glucose 112 H (74-99) mg/dL Plasma Lactic Acid Matt (0.7-2.0) mmol/L Calcium 9.4 (8.4-10.2) mg/dL Total Bilirubin 0.7 (0.2-1.3) mg/dL AST 27 (14-36) U/L ALT 25 (4-34) U/L Alkaline Phosphatase 76 (38-126) U/L Total Protein 7.0 (6.3-8.2) g/dL Albumin 4.3 (3.5-5.0) g/dL Amylase 58 (30-110) U/L Lipase 162 (23-300) U/L Urine Color Yellow Urine Appearance Clear (Clear) Urine pH 6.0 (5.0-8.0) Ur Specific [place] 1.010 (1.001-1.035) Urine Protein Negative (Negative) Urine Glucose (UA) Negative (Negative) Urine Ketones Negative (Negative) Urine Blood Small (Negative) Urine Nitrite Negative (Negative) Urine Bilirubin Negative (Negative) Urine Urobilinogen <2.0 (<2.0) mg/dL Ur Leukocyte Esterase Negative (Negative) Urine RBC <1 (0-5) /hpf Ur Squamous Epith Cells 2 (0-4) /hpf / Range/Units 15:02 WBC (3.8-10.6) k/uL RBC (3.80-5.40) m/uL Hgb (11.4-16.0) gm/dL Hct (34.0-46.0) % MCV (80.0-100.0) fL MCH (25.0-35.0) pg MCHC (31.0-37.0) g/dL RDW (11.5-15.5) % Plt Count (150-450) k/uL Neutrophils % % Lymphocytes % % Monocytes % % Eosinophils % % Basophils % % Neutrophils # (1.3-7.7) k/uL Lymphocytes # (1.0-4.8) k/uL Monocytes # (0-1.0) k/uL Eosinophils # (0-0.7) k/uL Basophils # (0-0.2) k/uL Sodium (137-145) mmol/L Potassium (3.5-5.1) mmol/L Chloride (98-107) mmol/L Carbon Dioxide (22-30) mmol/L Anion Gap mmol/L BUN (7-17) mg/dL Creatinine (0.52-1.04) mg/dL Est GFR (CKD-EPI)AfAm (>60 ml/min/1.73 sqM) Est GFR (CKD-EPI)NonAf (>60 ml/min/1.73 sqM) Glucose (74-99) mg/dL Plasma Lactic Acid Matt 1.7 (0.7-2.0) mmol/L Calcium (8.4-10.2) mg/dL Total Bilirubin (0.2-1.3) mg/dL AST (14-36) U/L ALT (4-34) U/L Alkaline Phosphatase (38-126) U/L Total Protein (6.3-8.2) g/dL Albumin (3.5-5.0) g/dL Amylase (30-110) U/L Lipase (23-300) U/L Urine Color Urine Appearance (Clear) Urine pH (5.0-8.0) Ur Specific [place] (1.001-1.035) Urine Protein (Negative) Urine Glucose (UA) (Negative) Urine Ketones (Negative) Urine Blood (Negative) Urine Nitrite (Negative) Urine Bilirubin (Negative) Urine Urobilinogen (<2.0) mg/dL Ur Leukocyte Esterase (Negative) Urine RBC (0-5) /hpf Ur Squamous Epith Cells (0-4) /hpf Disposition <Jose Durham N - Last Filed: 03/10/20 16:53> Is patient prescribed a controlled substance at d/c from ED?: No Time of Disposition: 17:02 <Tremayne Ruby P - Last Filed: 03/10/20 17:04> Clinical Impression: Abdominal pain Disposition: HOME SELF-CARE Condition: Good Instructions (If sedation given, give patient instructions): Abdominal Pain (ED) Additional Instructions: please follow up with primary care in 1-2 days. follow-up with Dr. Joseph as well. Return to the emergency room for any worsening symptoms. Referrals: Real Ladd MD [Primary Care Provider] - 1-2 days
[2020-03-10 15:27] LABS: Basophils % (A) 0 %; Eosinophils # (A) 0.1 k/uL (0-0.7); Eosinophils % (A) 2 %; HCT 40.4 % (34.0-46.0); HGB 13.2 gm/dL (11.4-16.0); Lymphocytes # (A) 1.7 k/uL (1.0-4.8); Lymphocytes % (A) 27 %; MCH 30.3 pg (25.0-35.0); MCHC 32.6 g/dL (31.0-37.0); MCV 92.9 fL (80.0-100.0); Mean Platelet Volume 8.4; Monocytes # (A) 0.3 k/uL (0-1.0); Monocytes % (A) 4 %; Neutrophils # (A) 4.3 k/uL (1.3-7.7); Neutrophils % (A) 65 %; Platelet Count 171 k/uL (150-450); RBC 4.35 m/uL (3.80-5.40); RDW 13.6 % (11.5-15.5); WBC 6.5 k/uL (3.8-10.6)
[2020-03-10 15:36] LABS: ALT 25 U/L (4-34); AST 27 U/L (14-36); African American GFR (CKD) >90 (>60 ml/min/1.73 sqM); Albumin 4.3 g/dL (3.5-5.0); Alkaline Phosphatase 76 U/L (38-126); Amylase 58 U/L (30-110); Anion Gap 8 mmol/L; Blood Urea Nitrogen 15 mg/dL (7-17); Calcium 9.4 mg/dL (8.4-10.2); Carbon Dioxide 25 mmol/L (22-30); Chloride 108 mmol/L (98-107); Glucose 112 mg/dL (74-99); Lipase 162 U/L (23-300); Non-African American GFR(CKD) 84 (>60 ml/min/1.73 sqM); Potassium 3.8 mmol/L (3.5-5.1); Sodium 141 mmol/L (137-145); Total Bilirubin 0.7 mg/dL (0.2-1.3)
[2020-03-10 15:44] LABS: RBC,Urine <1 /hpf (0-5); Squamous Epithelial Cell,Urine 2 /hpf (0-4)
[2020-03-10 15:46] LABS: Appearance,Urine Clear (Clear); Bilirubin,Urine Negative (Negative); Blood,Urine Small (Negative); Color,Urine Yellow; Glucose,Urine (UA) Negative (Negative); Ketones,Urine Negative (Negative); Leukocyte Esterase,Urine Negative (Negative); Nitrite,Urine Negative (Negative); Protein,Urine Negative (Negative); Urobilinogen,Urine <2.0 mg/dL (<2.0)
--- NOTE | 2020-03-10 16:23 | CT ---
EXAMINATION TYPE: CT abdomen pelvis w con DATE OF EXAM: 03/10/2020 COMPARISON: 05/15/2019 HISTORY: Right upper quadrant pain and burning in region of hernia mesh. CT DLP: 3178.4 mGycm CONTRAST: CT scan of the abdomen and pelvis is performed without Oral Contrast and with IV Contrast, patient in jected with 100 mL of Isovue 300. FINDINGS: LUNG BASES-: No visible nodule. No infiltrate. LIVER/GB: Cholecystectomy clips are in place. No space occupying hepatic lesion. Biliary tree is o f normal caliber. PANCREAS: No inflammation. No distinct mass. SPLEEN: No splenic enlargement. No lesion seen. ADRENALS: No nodule. No thickening. KIDNEYS/BLADDER: No hydronephrosis. No nephrolithiasis. Large exophytic cyst upper pole right kidne y. 5 mm nonobstructing calculus lower pole left kidney.. Urinary bladder grossly unremarkable. BOWEL: Normal appendix. Normal bowel caliber. No inflammation. Sigmoid diverticulosis without diver ticulitis. GENITAL ORGANS: No gross abnormality. LYMPH NODES: No greater than 1cm abdominal or pelvic lymph nodes are appreciated. AORTA: No significant abnormality. OSSEOUS STRUCTURES: No significant abnormality is seen. OTHER: No significant additional abnormality is seen. IMPRESSION: 1. Sigmoid diverticulosis without diverticulitis. 2. Nonobstructing left-sided nephrolithiasis. 3. Exophytic cyst upper pole right kidney.
[2020-03-10] MEDS ORDERED: KETOROLAC 15 MG/ML 1 ML VIAL IVP STA (16:37)
[2020-03-10 17:23] VITALS: BP 133/77; PULSE 80
== END 2020-03-10 17:24 | disposition home or self-care (01) ==
LOC: EC 14:42
DX: N20.0 Calculus of kidney (principal); K57.30 Diverticulosis of large intestine without perforation or abscess without bleeding; F41.9 Anxiety disorder, unspecified; I11.0 Hypertensive heart disease with heart failure; I50.9 Heart failure, unspecified; G47.30 Sleep apnea, unspecified; I20.9 Angina pectoris, unspecified; Z79.899 Other long term (current) drug therapy; Z88.8 Allergy status to other drugs, medicaments and biological substances; Z87.891 Personal history of nicotine dependence; Z85.038 Personal history of other malignant neoplasm of large intestine; Z80.1 Family history of malignant neoplasm of trachea, bronchus and lung; Z80.8 Family history of malignant neoplasm of other organs or systems; Z85.41 Personal history of malignant neoplasm of cervix uteri; Z92.21 Personal history of antineoplastic chemotherapy; Z85.42 Personal history of malignant neoplasm of other parts of uterus; Z90.49 Acquired absence of other specified parts of digestive tract; Z90.710 Acquired absence of both cervix and uterus
CPT/HCPCS: 99284; 96374; 96361; 36415; 80053; 82150; 83605; 83690; 85025; 81001; 74177; J1885; Q9967

== ENCOUNTER 2020-10-20 16:04 | Inpatient (IN) | payer MEDICARE, OTHER ==
[2020-10-20] MEDS ORDERED: ONDANSETRON 4 MG/2 ML VIAL IVP STA (17:28)
[2020-10-20] MEDS ORDERED: SODIUM CHLORIDE 0.9% 1,000 ML IV ONE (17:28)
[2020-10-20] MEDS ORDERED: MORPHINE SULFATE 4 MG/ML SYRINGE IV STA (17:28)
--- NOTE | 2020-10-20 17:28 | ED ---
Female Urogenital HPI - General Source: patient, RN notes reviewed Mode of arrival: ambulatory Limitations: no limitations <Rizwan Chung - Last Filed: 10/20/20 17:50> <Augustin Pro - Last Filed: 10/20/20 19:28> - General Chief complaint: Urogenital Stated complaint: kidney stones,lower back pain, fever Time Seen by Provider: 10/20/20 16:18 - History of Present Illness Initial comments: 65-year-old female comes to emergency, with left-sided flank pain. She noted that she recently was treated for UTI and was given an antibiotic by her primary care. She noted that the pain is approximately a 10 out of 10 on relief. She is running a fever but has no other symptoms besides flank pain. (Rizwan Chung) - Related Data Home Medications Medication Instructions Recorded Confirmed LORazepam [Ativan] 0.5 mg PO BID 08/29/14 03/19/20 Topiramate [Topamax] 25 mg PO BID 08/29/14 03/19/20 lisinopriL [Prinivil] 20 mg PO HS 08/29/14 03/19/20 Sucralfate [Carafate] 1 gm PO BID 04/03/15 03/19/20 Furosemide [Lasix] 20 mg PO QAM 09/01/15 03/19/20 Magnesium 200 mg PO HS 09/23/16 03/19/20 Nortriptyline HCl [Pamelor] 25 mg PO HS 09/29/16 03/19/20 Multivitamins, Thera [Multivitamin 1 tab PO DAILY 06/14/18 03/19/20 (formulary)] Cholecalciferol [Vitamin D3 (25 2,000 unit PO DAILY 08/31/19 03/19/20 Mcg = 1000 Iu)] Metoprolol Tartrate [Lopressor] 25 mg PO QAM 08/31/19 03/19/20 HYDROcodone/APAP 10-325MG [[place] 1 tab PO TID PRN 02/04/20 03/19/20 10-325] Ascorbic Acid [Vitamin C] 500 mg PO DAILY 03/19/20 03/19/20 Previous Rx's Medication Instructions Recorded Aspirin EC [Ecotrin Low Dose] 81 mg PO DAILY #30 tablet. 06/15/18 Nitroglycerin Sl Tabs [Nitrostat] 0.4 mg SUBLINGUAL Q5M PRN #20 tab 06/15/18 Allergies Allergy/AdvReac Type Severity Reaction Status Date / Time fluoxetine Allergy WGT GAIN, Verified 10/20/20 17:22 CONFUSION, NAUSEA gabapentin Allergy Confusion,and Verified 10/20/20 17:22 weight gain methylphenidate HCl Allergy Confusion Verified 10/20/20 17:22 [From Concerta] and wt gain pregabalin [From Lyrica] Allergy Confusion,a Verified 10/20/20 17:22 ggresion Review of Systems ROS Other: All systems not noted in ROS Statement are negative. <Rizwan Chung - Last Filed: 10/20/20 17:50> ROS Other: All systems not noted in ROS Statement are negative. <Augustin Pro - Last Filed: 10/20/20 19:28> ROS Statement: Those systems with pertinent positive or pertinent negative responses have been documented in the HPI. Past Medical History Past Medical History: Cancer, Chest Pain / Angina, Heart Failure, Fibromyalgia, GERD/Reflux, Hypertension, Liver Disease, Osteoarthritis (OA), Sleep Apnea/CPAP/BIPAP Additional Past Medical History / Comment(s): HX BRADYCARDIA AND TACHYCARDIA, HX HEP C 1998. occ lower leg EDEMA. HX MIGRAINE. ONE SEIZURE 2002 (states she feels it was from prozac). OCCIPITAL NERVE DAMAGE PER MRI. HX CERVICAL/UTERINE CA; COLON CA DIAGNOSED IN JUL 2014-last chemo 03-27-15. UNABLE TO USE CPAP. osteoporosis, neuropathy. large hiatal hrenia, History of Any Multi-Drug Resistant Organisms: None Reported Past Surgical History: Bowel Resection, Cholecystectomy, Hernia Repair, Hysterectomy, Orthopedic Surgery Additional Past Surgical History / Comment(s): COLON RESECTION FOR CA . RT FOOT BONE SPUR, L KNEE MENISCUS SX, RT INDEX FINGER TENDON REPAIR. moe port placements & removed, Past Anesthesia/Blood Transfusion Reactions: Family History of Problems w/ Anesthesia Additional Past Anesthesia/Blood Transfusion Reaction / Comment(s): DAUGHTER AND MOTHER GET SEVERE PONV. Past Psychological History: Anxiety Smoking Status: Former smoker Past Alcohol Use History: None Reported Additional Past Alcohol Use History / Comment(s): QUIT SMOKING 1980, STARTED SMOKING 1967 ON AND OFF Past Drug Use History: Marijuana Additional Drug Use History / Comment(s): MEDICAL CARD FOR MARIJUANIA occasional use, - Past Family History Mother Family Medical History: Cancer Additional Family Medical History / Comment(s): LUNG,BONE,BRAIN Daughter(s) Family Medical History: Cancer Additional Family Medical History / Comment(s): UTERINE, CERVICAL <Rizwan Chung - Last Filed: 10/20/20 17:50> General Exam Limitations: no limitations General appearance: alert, in no apparent distress, obese Head exam: Present: atraumatic, normocephalic, normal inspection Eye exam: Present: normal appearance, PERRL, EOMI. Absent: scleral icterus, conjunctival injection, periorbital swelling Neck exam: Present: normal inspection. Absent: tenderness, meningismus, lymphadenopathy Respiratory exam: Present: normal lung sounds bilaterally. Absent: respiratory distress, wheezes, rales, rhonchi, stridor Cardiovascular Exam: Present: regular rate, normal rhythm, normal heart sounds. Absent: systolic murmur, diastolic murmur, rubs, gallop, clicks GI/Abdominal exam: Present: soft, normal bowel sounds. Absent: distended, tenderness, guarding, rebound, rigid Extremities exam: Present: normal inspection, full ROM, normal capillary refill. Absent: tenderness, pedal edema, joint swelling, calf tenderness Back exam: Present: normal inspection, CVA tenderness (L) Neurological exam: Present: alert, oriented X3, CN II-XII intact Psychiatric exam: Present: normal affect, normal mood Skin exam: Present: warm, dry, intact, normal color. Absent: rash <Rizwan Chung - Last Filed: 10/20/20 17:50> Course <Augustin Pro - Last Filed: 10/20/20 19:28> Vital Signs 10/20/20 10/20/20 17:20 19:15 Temperature 103 F H 100.3 F H Pulse Rate 103 H Respiratory 18 Rate Blood Pressure 124/72 O2 Sat by Pulse 95 Oximetry - Reevaluation(s) Reevaluation #1: 10/20/20 19:27 Patient does meet sepsis criteria diagnosed at 1925. Blood culture and lactic acid and IV antibiotics will be ordered. Admission orders will be placed. (Augustin Pro) Medical Decision Making <Rizwan Chung - Last Filed: 10/20/20 17:50> - Lab Data Result diagrams: 10/20/20 18:00 10/20/20 18:00 - Radiology Data Radiology results: report reviewed (Computed tomography scan of the abdomen pelvis shows some diverticulosis without diverticulitis. Nonobstructing left renal calculi similar to previous.) <Augustin Pro - Last Filed: 10/20/20 19:28> - Medical Decision Making 65-year-old female complaining of left flank pain. Labs,CT of the abdomen and pelvis, 4 mg of morphine, 4 mg of Zofran 650 mg Tylenol ordered for fever. (Rizwan Chung) Patient reevaluated and resting comfortably in bed. Patient still with some left flank discomfort, nontender on exam. Patient states discomfort is mild this time. Patient and family updated on results and plan. Dr. Lilly has been paged for admission, covering for Dr. Ladd. (Augustin Pro) - Lab Data Lab Results 10/20/20 10/20/20 10/20/20 Range/Units 17:33 18:00 18:00 WBC 14.4 H (3.8-10.6) k/uL RBC 4.50 (3.80-5.40) m/uL Hgb 14.2 (11.4-16.0) gm/dL Hct 41.6 (34.0-46.0) % MCV 92.6 (80.0-100.0) fL MCH 31.6 (25.0-35.0) pg MCHC 34.1 (31.0-37.0) g/dL RDW 13.6 (11.5-15.5) % Plt Count 201 (150-450) k/uL MPV 7.6 Neutrophils % 87 % Lymphocytes % 8 % Monocytes % 4 % Eosinophils % 0 % Basophils % 0 % Neutrophils # 12.5 H (1.3-7.7) k/uL Lymphocytes # 1.1 (1.0-4.8) k/uL Monocytes # 0.6 (0-1.0) k/uL Eosinophils # 0.0 (0-0.7) k/uL Basophils # 0.0 (0-0.2) k/uL Sodium 132 L (137-145) mmol/L Potassium 4.2 (3.5-5.1) mmol/L Chloride 101 (98-107) mmol/L Carbon Dioxide 22 (22-30) mmol/L Anion Gap 9 mmol/L BUN 13 (7-17) mg/dL Creatinine 0.90 (0.52-1.04) mg/dL Est GFR (CKD-EPI)AfAm 77 (>60 ml/min/1.73 sqM) Est GFR (CKD-EPI)NonAf 67 (>60 ml/min/1.73 sqM) Glucose 102 H (74-99) mg/dL Calcium 9.7 (8.4-10.2) mg/dL Total Bilirubin 1.6 H (0.2-1.3) mg/dL AST 26 (14-36) U/L ALT 36 H (4-34) U/L Alkaline Phosphatase 90 (38-126) U/L Total Protein 7.4 (6.3-8.2) g/dL Albumin 4.3 (3.5-5.0) g/dL Urine Color Yellow Urine Appearance Clear (Clear) Urine pH 8.0 (5.0-8.0) Ur Specific [place] 1.010 (1.001-1.035) Urine Protein Trace H (Negative) Urine Glucose (UA) Negative (Negative) Urine Ketones Negative (Negative) Urine Blood Negative (Negative) Urine Nitrite Negative (Negative) Urine Bilirubin Negative (Negative) Urine Urobilinogen <2.0 (<2.0) mg/dL Ur Leukocyte Esterase Small H (Negative) Urine RBC 3 (0-5) /hpf Urine WBC 28 H (0-5) /hpf Ur Squamous Epith Cells <1 (0-4) /hpf Urine Bacteria Many H (None) /hpf Urine Mucus Rare H (None) /hpf Critical Care Time Critical Care Time: Yes Total Critical Care Time: 33 <Augustin Pro - Last Filed: 10/20/20 19:28> Disposition <Rizwan Chung - Last Filed: 10/20/20 17:50> Is patient prescribed a controlled substance at d/c from ED?: No Decision Time: 19:28 <Augustin Pro - Last Filed: 10/20/20 19:28> Clinical Impression: Sepsis, Urinary tract infection Disposition: ADMITTED IP TO THIS [facility] Referrals: Real Ladd MD [Primary Care Provider] - 1-2 days
[2020-10-20 17:42] LABS: Appearance,Urine Clear (Clear); Bacteria,Urine Many /hpf; Bilirubin,Urine Negative (Negative); Blood,Urine Negative (Negative); Color,Urine Yellow; Glucose,Urine (UA) Negative (Negative); Ketones,Urine Negative (Negative); Leukocyte Esterase,Urine Small (Negative); Mucus,Urine Rare /hpf; Nitrite,Urine Negative (Negative); Protein,Urine Trace (Negative); RBC,Urine 3 /hpf (0-5); Squamous Epithelial Cell,Urine <1 /hpf (0-4); Urobilinogen,Urine <2.0 mg/dL (<2.0); WBC,Urine 28 /hpf (0-5)
[2020-10-20] MEDS ORDERED: ACETAMINOPHEN TAB 325 MG TAB PO STA (17:51)
[2020-10-20 18:14] LABS: Basophils % (A) 0 %; Eosinophils % (A) 0 %; HCT 41.6 % (34.0-46.0); HGB 14.2 gm/dL (11.4-16.0); Lymphocytes # (A) 1.1 k/uL (1.0-4.8); Lymphocytes % (A) 8 %; MCH 31.6 pg (25.0-35.0); MCHC 34.1 g/dL (31.0-37.0); MCV 92.6 fL (80.0-100.0); Mean Platelet Volume 7.6; Monocytes # (A) 0.6 k/uL (0-1.0); Monocytes % (A) 4 %; Neutrophils # (A) 12.5 k/uL (1.3-7.7); Neutrophils % (A) 87 %; Platelet Count 201 k/uL (150-450); RDW 13.6 % (11.5-15.5); WBC 14.4 k/uL (3.8-10.6)
[2020-10-20 18:27] LABS: Albumin 4.3 g/dL (3.5-5.0); Calcium 9.7 mg/dL (8.4-10.2); Potassium 4.2 mmol/L (3.5-5.1); Total Bilirubin 1.6 mg/dL (0.2-1.3); Total Protein 7.4 g/dL (6.3-8.2)
--- NOTE | 2020-10-20 19:03 | CT ---
EXAMINATION TYPE: CT abdomen pelvis w con DATE OF EXAM: 10/20/2020 COMPARISON: 03/10/2020 HISTORY: Generalized pain with fever. CT DLP: 2982 mGycm Automated exposure control for dose reduction was used. CONTRAST: Performed with IV Contrast, patient injected with 100 mL of Isovue 300. Images obtained from the diaphragm to the floor the pelvis with IV contrast Lung bases are clear. There is no pleural effusion. Heart size is normal. There is no pericardial eff usion. There are clips from cholecystectomy. Liver and spleen are intact. The bile ducts are not dilated. St omach is intact. There is no evidence of pancreatic mass. There is no adrenal mass. There is 8 cm cortical cyst upper pole right kidney. There is 8mm calculus lower pole left kidney. The ureters are not dilated. There is no retroperitoneal adenopathy. Bladder distends smoothly. There is no inguinal hernia. There are sigmoid multiple diverticula. I see no sign of diverticulitis. There is no mesenteric edema. There is no ascites or free air. There is no sign of a bowel obstructio n. Appendix is inferior and appears normal. Lumbar vertebra have fairly normal spacing and alignment. There is no compression fracture. The bony pelvis is intact. The hip joints are intact. I see no bony destructive process. IMPRESSION: There are some sigmoid diverticulosis without diverticulitis. There is nonobstructing left renal calculus not significantly different than old exam. Normal appendi x.
[2020-10-20] MEDS ORDERED: NALOXONE 0.4 MG/ML 1 ML VIAL IV PRN (19:31)
[2020-10-20] MEDS ORDERED: ONDANSETRON 4 MG/2 ML VIAL IVP PRN (19:31)
[2020-10-20] MEDS: SODIUM CHLORIDE 0.9% 1,000 ML IV SCH (20:43)
[2020-10-20] MEDS: ACETAMINOPHEN TAB 325 MG TAB PO PRN (20:46)
[2020-10-20] MEDS: MORPHINE SULFATE 4 MG/ML SYRINGE IV PRN (21:34)
[2020-10-20] MEDS: FAMOTIDINE 20 MG TAB PO SCH (22:02)
[2020-10-21] MEDS: SODIUM CHLORIDE 0.9% 1,000 ML IV SCH ×3 (05:23→19:20)
[2020-10-21] MEDS: ACETAMINOPHEN TAB 325 MG TAB PO PRN ×2 (07:22→19:22)
[2020-10-21] MEDS: FAMOTIDINE 20 MG TAB PO SCH ×2 (07:23→19:22)
[2020-10-21 09:40] LABS: Basophils # (A) 0.02 X 10*3/uL (0.00-0.10); Basophils % (A) 0.2 %; Eosinophils # (A) 0.05 X 10*3/uL (0.04-0.35); Eosinophils % (A) 0.4 %; HCT 37.2 % (37.2-46.3); HGB 11.8 g/dL (12.0-15.0); Lymphocytes # (A) 1.64 X 10*3/uL (0.90-5.00); Lymphocytes % (A) 13.6 %; MCH 30.9 pg (27.0-32.0); MCHC 31.7 g/dL (32.0-37.0); MCV 97.4 fL (80.0-97.0); Mean Platelet Volume 10.9 fL (9.5-12.2); Monocytes # (A) 1.05 X 10*3/uL (0.20-1.00); Monocytes % (A) 8.7 %; Neutrophils # (A) 9.26 X 10*3/uL (1.80-7.70); Neutrophils % (A) 76.8 %; Platelet Count 181 X 10*3/uL (140-440); RBC 3.82 X 10*6/uL (4.10-5.20); WBC 12.06 X 10*3/uL (4.50-10.00)
[2020-10-21 10:00] LABS: African American GFR (CKD) 77.2 (60.0-200.0); Albumin 3.7 g/dL (3.80-4.90); Albumin/Globulin Ratio 2.06 (1.60-3.17); Anion Gap 5.7 mmol/L (4.00-12.00); BUN/Creat Ratio 13.33 Ratio (12.00-20.00); Calcium 8.4 mg/dL (8.7-10.3); Carbon Dioxide 25.3 mmol/L (21.6-31.8); Globulin 1.8 g/dL (1.6-3.3); Non-African American GFR(CKD) 66.6 (60.0-200.0); Total Bilirubin 0.9 mg/dL (0.2-1.2); Total Protein 5.5 g/dL (6.2-8.2)
[2020-10-21] MEDS ORDERED: NITROGLYCERIN SL TABS 0.4 MG TAB SUBLINGUAL PRN (12:53)
[2020-10-21] MEDS ORDERED: ALPRAZolam 0.25 MG TAB PO PRN (12:55)
[2020-10-21] MEDS: HEPARIN SODIUM,PORCINE 5,000 UNIT/ML 1 ML VIAL SQ SCH ×2 (13:21→20:49)
[2020-10-21] MEDS: TOPIRAMATE 25 MG TAB PO SCH ×2 (13:36→20:49)
[2020-10-21] MEDS: METOPROLOL TARTRATE 25 MG TAB PO SCH (13:36)
[2020-10-21] MEDS: MORPHINE SULFATE 4 MG/ML SYRINGE IV PRN (13:40)
--- NOTE | 2020-10-21 14:36 | HP ---
HISTORY AND PHYSICAL DATE OF SERVICE: 10/21/2020 CHIEF COMPLAINTS: Left-sided flank pain. HISTORY OF PRESENT ILLNESS: This 65-year-old woman with a past medical history of multiple medical problems including CHF, fibromyalgia, GERD, hypertension, liver disease, being followed by Dr. Real Ladd in the outpatient setting recently treated for UTI by the primary physician. Apparently the patient was given antibiotics. Patient is complaining of left-sided flank pain at this time. The pain was approximately 10/10. The patient came to [facility] and evaluation showed elevated WBC and evidence of UTI with possible pyelonephritis. The patient also had abdomen and pelvis CAT scan which showed some sigmoid diverticulosis with diverticulitis and nonobstructing left renal calculus not significant from the previous exam and the patient admitted for further evaluation and treatment. There is no history of any fever, rigors. No history of headache, loss of consciousness or seizures. PAST MEDICAL HISTORY: History of chest pain, CHF, fibromyalgia, GERD, hypertension, history of liver disease, history of DJD, history of bowel resection and cholecystectomy. MEDICATIONS: Medications prior to admission are: 1. Topamax. 2. Pamelor. 3. Multivitamin. 4. Lopressor. 5. Burkett. 6. Vitamin D3. 7. Prinivil. 8. Carafate. 9. Nitrostat. 10.Magnesium. 11.Ativan. 12.Lasix. 13.Ecotrin. Doses are reviewed. ALLERGIES: FLUOXETINE, GABAPENTIN, CONCERTA, LYRICA. FAMILY HISTORY: History of lung, bone and brain cancer. SOCIAL HISTORY: History of THC, previous smoking. REVIEW OF SYSTEMS: ENT: No diminished hearing or diminished vision. CARDIOVASCULAR SYSTEM: No angina. RESPIRATORY SYSTEM: No cough or hemoptysis. GI: As mentioned earlier. : As mentioned earlier. NERVOUS SYSTEM: No numbness or weakness. ALLERGY/IMMUNOLOGY: No asthma or hayfever. MUSCULOSKELETAL: As mentioned earlier. HEMATOLOGY: No history of anemia. ENDOCRINE: No history of diabetes or hypothyroidism. CONSTITUTIONAL: As mentioned earlier. DERMATOLOGY: Negative. RHEUMATOLOGY: Negative. PSYCHIATRY: As mentioned earlier. PHYSICAL EXAMINATION: The patient is alert and oriented x3. Pulse 91, blood pressure 106/65, respiration 18, temperature 100.5, pulse ox 97% on room air. HEENT: Conjunctivae normal. Oral mucosa moist. NECK: No jugular venous distention. No carotid bruit. No lymph node enlargement. CARDIOVASCULAR: S1, S2 muffled. No S3, no S4. RESPIRATORY: Breath sounds diminished at the bases. No rhonchi. No crackles. ABDOMEN: Soft, obese, nontender. No mass palpable. Minimal tenderness on the left side of the abdomen present. LEGS: No edema, no swelling. NERVOUS SYSTEM: Higher function as mentioned earlier. Moves all 4 limbs. No focal motor or sensory deficits. LYMPHATICS: No lymphadenopathy of the neck, axillae or groin. SKIN: No ulcer, rash or bleeding. JOINTS: No active deforming arthropathy. LABS: WBC 12.06, hemoglobin 11.8. Other labs are noted. ASSESSMENT: 1. Acute urinary tract infection with sepsis, present on admission, complicated urinary tract infection. 2. Acute urolithiasis nonobstructing left renal calculus. 3. Increased WBC. 4. Anemia, normocytic. 5. History of congestive heart failure. 6. Fibromyalgia. 7. Gastroesophageal reflux disease. 8. Hypertension. 9. History of chronic liver disease. 10.History of degenerative joint disease. 11.History of bradycardia and tachycardia. 12.History of migraine. 13.History of seizure disorder. 14.History of bowel resection. 15.History of cholecystectomy. 16.History of colonic resection for malignancy. 17.History of anxiety. 18.Remote history of nicotine dependence. 19.History of THC, medical marijuana. 20.Obesity with body mass index of 49.6. 21.FULL CODE. RECOMMENDATIONS AND DISCUSSION: This 65-year-old woman who presented with multiple complex medical issues, we will monitor the patient closely. We will initiate broad-spectrum IV antibiotics resume the home medications. Also recommend urine culture and blood culture and as well as Urology consultation also. Otherwise prognosis guarded because of multiple complex medical issues. Further recommendations to follow. A copy of dictation forwarded to Dr. Real Ladd who is the primary physician. See orders for details. DVT prophylaxis. Proton pump inhibitors. MMODL / IJN: [id number] /
[2020-10-21] MEDS: HYDROcodone/APAP 10-325MG 1 EACH TAB PO SCH ×2 (16:16→20:48)
[2020-10-21] MEDS: SUCRALFATE 1 GM TAB PO SCH (19:21)
[2020-10-21] MEDS: LORazepam 0.5 MG TAB PO SCH (19:22)
[2020-10-21] MEDS: MAGNESIUM OXIDE 400 MG TAB PO SCH (19:22)
[2020-10-21] MEDS: lisinopriL 20 MG TAB PO SCH (19:22)
[2020-10-21] MEDS: NORTRIPTYLINE 25 MG CAP PO SCH (20:49)
[2020-10-21] MEDS ORDERED: TOPIRAMATE 25 MG TAB PO SCH (21:00)
[2020-10-22] MEDS: SODIUM CHLORIDE 0.9% 1,000 ML IV SCH ×3 (04:35→15:59)
[2020-10-22] MEDS ORDERED: METOPROLOL TARTRATE 25 MG TAB PO SCH (09:00)
[2020-10-22] MEDS: ASPIRIN 81 MG PO SCH (09:43)
[2020-10-22] MEDS: FAMOTIDINE 20 MG TAB PO SCH ×2 (09:44→21:11)
[2020-10-22] MEDS: LORazepam 0.5 MG TAB PO SCH ×2 (09:44→21:11)
[2020-10-22] MEDS: TOPIRAMATE 25 MG TAB PO SCH ×2 (09:44→21:12)
[2020-10-22] MEDS: FUROSEMIDE 20 MG TAB PO SCH (09:44)
[2020-10-22] MEDS: MULTIVITAMINS, THERA 1 EACH TAB PO SCH (09:44)
[2020-10-22] MEDS: HYDROcodone/APAP 10-325MG 1 EACH TAB PO SCH ×3 (09:44→21:11)
[2020-10-22] MEDS: METOPROLOL TARTRATE 25 MG TAB PO SCH (09:46)
[2020-10-22] MEDS: CHOLECALCIFEROL 25 MCG (1000 IU) TABLET PO SCH (09:46)
[2020-10-22] MEDS: SUCRALFATE 1 GM TAB PO SCH ×2 (09:46→21:18)
[2020-10-22] MEDS: HEPARIN SODIUM,PORCINE 5,000 UNIT/ML 1 ML VIAL SQ SCH ×2 (09:46→21:11)
--- NOTE | 2020-10-22 09:59 | P.GSCN ---
History of Present Illness Consult date: 10/22/20 History of present illness: This is a 65-year-old female who presented to the hospital with persistent symptoms of urinary tract infection, fever and left flank pain. The patient states that several days ago she had a lot of lower urinary tract symptoms pressure frequency and urgency. She went to an outpatient clinic where she was given antibiotics. The name of the antibiotic she does not remember. When she did not get better she came to the emergency room and is admitted to the hospital with a presumed pyelonephritis. She has pain on the left flank and that identified a left lower pole renal stone 8-9 mm. For this reason we are asked see the patient. The patient has no history of stones. I saw her several years ago for a large right renal cyst which is unchanged. She has no bladder symptoms other than that mentioned above. She there are not in terms of persistent infection. She had no signs of stones prior to this. Her urinalysis is inflamed. A urine culture is growing a gram-negative josephine. Sensitivities are pending. No hydronephrosis from the stone. Review of Systems All systems: negative - Constitutional Denies fever, Denies weight loss - EENT Eyes: denies blurred vision Ears, nose, mouth and throat: Denies dysphagia - Cardiovascular Denies chest pain, Denies shortness of breath - Respiratory Denies cough, Denies 7 - Gastrointestinal Reports as per HPI - Genitourinary Genitourinary: Denies dysuria, Denies hematuria - Integumentary Denies rash, Denies unusual bruising - Neurological Denies headaches, Denies syncope - Hematologic/Lymphatic Denies easy bleeding, Denies easy bruising Past Medical History Past Medical History: Cancer, Chest Pain / Angina, Heart Failure, Fibromyalgia, GERD/Reflux, Hypertension, Liver Disease, Osteoarthritis (OA), Sleep Apnea/CPAP/ BIPAP Additional Past Medical History / Comment(s): HX BRADYCARDIA AND TACHYCARDIA, HX HEP C 1998. occ lower leg EDEMA. HX MIGRAINE. ONE SEIZURE 2002 (states she feels it was from prozac). OCCIPITAL NERVE DAMAGE PER MRI. HX CERVICAL/UTERINE CA; COLON CA DIAGNOSED IN JUL 2014-last chemo 03-27-15. UNABLE TO USE CPAP. osteoporosis, neuropathy. large hiatal hrenia, History of Any Multi-Drug Resistant Organisms: None Reported Past Surgical History: Bowel Resection, Cholecystectomy, Hernia Repair, Hysterectomy, Orthopedic Surgery Additional Past Surgical History / Comment(s): COLON RESECTION FOR CA . RT FOOT BONE SPUR, L KNEE MENISCUS SX, RT INDEX FINGER TENDON REPAIR. moe port placements & removed, Past Anesthesia/Blood Transfusion Reactions: Family History of Problems w/ Anesthesia Additional Past Anesthesia/Blood Transfusion Reaction / Comm: DAUGHTER AND MOTHER GET SEVERE PONV. Past Psychological History: Anxiety Smoking Status: Former smoker Past Alcohol Use History: None Reported Additional Past Alcohol Use History / Comment(s): QUIT SMOKING 1980, STARTED SMOKING 1967 ON AND OFF Past Drug Use History: Marijuana Additional Drug Use History / Comment(s): MEDICAL CARD FOR MARIJUANIA occasional use, - Past Family History Mother Family Medical History: Cancer Additional Family Medical History / Comment(s): LUNG,BONE,BRAIN Daughter(s) Family Medical History: Cancer Additional Family Medical History / Comment(s): UTERINE, CERVICAL Medications and Allergies Home Medications Medication Instructions Recorded Confirmed Type LORazepam [Ativan] 0.5 mg PO BID 08/29/14 10/20/20 History Topiramate [Topamax] 25 mg PO BID 08/29/14 10/20/20 History lisinopriL [Prinivil] 20 mg PO HS 08/29/14 10/20/20 History Sucralfate [Carafate] 1 gm PO BID 04/03/15 10/20/20 History Furosemide [Lasix] 20 mg PO DAILY 09/01/15 10/20/20 History Nortriptyline HCl [Pamelor] 25 mg PO HS 09/29/16 10/20/20 History Multivitamins, Thera [Multivitamin 1 tab PO DAILY 06/14/18 10/20/20 History (formulary)] Aspirin EC [Ecotrin Low Dose] 81 mg PO DAILY #30 tablet. 06/15/18 10/20/20 Rx Nitroglycerin Sl Tabs [Nitrostat] 0.4 mg SUBLINGUAL Q5M PRN #20 tab 06/15/18 10/20/20 Rx Metoprolol Tartrate [Lopressor] 25 mg PO DAILY 08/31/19 10/20/20 History HYDROcodone/APAP 10-325MG [Hallwood 1 tab PO TID 02/04/20 10/20/20 History 10-325] Cholecalciferol (Vitamin D3) 75 mcg PO DAILY 10/20/20 10/20/20 History [Vitamin D3 (3000 Iu)] Magnesium 250 mg PO HS 10/20/20 10/20/20 History Allergies Allergy/AdvReac Type Severity Reaction Status Date / Time fluoxetine Allergy WGT GAIN, Verified 10/20/20 19:50 CONFUSION, NAUSEA gabapentin Allergy Confusion,and Verified 10/20/20 19:50 weight gain methylphenidate HCl Allergy Confusion Verified 10/20/20 19:50 [From Concerta] and wt gain pregabalin [From Lyrica] Allergy Confusion,a Verified 10/20/20 19:50 ggresion Surgical - Exam Vital Signs Temp Pulse Resp BP Pulse Ox 103 F H 103 H 18 124/72 95 10/20/20 17:20 10/20/20 17:20 10/20/20 17:20 10/20/20 17:20 10/20/20 17:20 - General well developed, well nourished, obese - Eyes PERRL - ENT no hearing loss - Neck trachea midline - Respiratory normal expansion, normal respiratory effort - Cardiovascular Rhythm: regular - Abdomen Abdomen: soft, non tender - Integumentary no rash, no growths - Neurologic normal coordination, normal sensation - Musculoskeletal normal posture - Psychiatric oriented to time, oriented to person, oriented to place, speech is normal, memory intact Results - Labs 10/21/20 05:38 10/21/20 05:38 Abnormal Lab Results - Last 24 Hours (Table) 10/21/20 Range/Units 05:38 Calcium 8.4 L (8.7-10.3) mg/dL Total Protein 5.5 L (6.2-8.2) g/dL Albumin 3.70 L (3.80-4.90) g/dL Microbiology - Last 24 Hours (Table) 10/20/20 17:33 Urine Culture - Preliminary Urine,Voided Gram Neg Bacilli 10/20/20 20:27 Blood Culture - Preliminary Blood No Growth after 24 hours Diabetes panel 10/21/20 Range/Units 05:38 Sodium 135 (135-145) mmol/L Potassium 4.0 (3.5-5.5) mmol/L Chloride 104 (96-109) mmol/L Carbon Dioxide 25.3 (21.6-31.8) mmol/L BUN 12.0 (9.0-27.0) mg/dL Creatinine 0.9 (0.6-1.5) mg/dL Glucose 97 (70-110) mg/dL Calcium 8.4 L (8.7-10.3) mg/dL AST 19 (13-35) U/L ALT 31 (8-44) U/L Alkaline Phosphatase 71 (41-126) U/L Total Protein 5.5 L (6.2-8.2) g/dL Albumin 3.70 L (3.80-4.90) g/dL Calcium panel 10/21/20 Range/Units 05:38 Calcium 8.4 L (8.7-10.3) mg/dL Albumin 3.70 L (3.80-4.90) g/dL Pituitary panel 10/21/20 Range/Units 05:38 Sodium 135 (135-145) mmol/L Potassium 4.0 (3.5-5.5) mmol/L Chloride 104 (96-109) mmol/L Carbon Dioxide 25.3 (21.6-31.8) mmol/L BUN 12.0 (9.0-27.0) mg/dL Creatinine 0.9 (0.6-1.5) mg/dL Glucose 97 (70-110) mg/dL Calcium 8.4 L (8.7-10.3) mg/dL Adrenal panel 10/21/20 Range/Units 05:38 Sodium 135 (135-145) mmol/L Potassium 4.0 (3.5-5.5) mmol/L Chloride 104 (96-109) mmol/L Carbon Dioxide 25.3 (21.6-31.8) mmol/L BUN 12.0 (9.0-27.0) mg/dL Creatinine 0.9 (0.6-1.5) mg/dL Glucose 97 (70-110) mg/dL Calcium 8.4 L (8.7-10.3) mg/dL Total Bilirubin 0.9 (0.2-1.2) mg/dL AST 19 (13-35) U/L ALT 31 (8-44) U/L Alkaline Phosphatase 71 (41-126) U/L Total Protein 5.5 L (6.2-8.2) g/dL Albumin 3.70 L (3.80-4.90) g/dL - Imaging CT scan - abdomen: report reviewed, image reviewed CT scan - pelvis: report reviewed, image reviewed Assessment and Plan Assessment: Impression: Left pyelonephritis due to probable incomplete treatment of cystitis. Left renal stone. Multiple medical illnesses including obesity Recommendations: I suspect the antibiotic chosen at the outpatient clinic was inadequate probably due to bacterial resistance. The patient does not know the name of antibiotic nor do we know whether culture was obtained. There is a renal stone but it is not obstructing. Whether the stone is related to this pro blem or not is indeterminate. There is no obstruction. The stone could be primarily secondarily or not infected. Time will tell us that answer. From urologic standpoint whenever the cultures back she can be placed on culture specific oral antibiotics discharged home and treated for about 2 weeks. She should follow-up in our office so we can clarify whether stone treatment will be needed depending on whether is infected or not. I would expect her to still have some fever for the next 24 hours. Time with Patient: Greater than 30
[2020-10-22] MEDS: lisinopriL 20 MG TAB PO SCH (21:11)
[2020-10-22] MEDS: MAGNESIUM OXIDE 400 MG TAB PO SCH (21:11)
[2020-10-22] MEDS: NORTRIPTYLINE 25 MG CAP PO SCH (21:12)
--- NOTE | 2020-10-22 22:07 | PN ---
PROGRESS NOTE DATE OF SERVICE: 10/22/2020 This 65-year-old woman was admitted with left-sided flank pain also had possible pyelonephritis. Patient on broad spectrum IV antibiotics. Patient also had nephrolithiasis and urine culture showed gram-negative bacilli. No chest pain. No palpitations. Mild fever noted. T-max is 101.2. PHYSICAL EXAMINATION: Alert and oriented times three. Pulse 69. Blood pressure 141/74, respirations 16, temperature 99.8, T-max 101.7, pulse ox 98% on room air. HEENT: Conjunctivae normal. NECK: No JVD. CARDIOVASCULAR: S1, S2 muffled. RESPIRATIONS: Breath sounds diminished in the bases. ABDOMEN: Soft, nontender. No mass. LEGS are no swelling. LAB STUDIES: WBC 12.2, hemoglobin 11.8. ASSESSMENT: 1. Acute urinary tract infection with sepsis with complicated urinary tract infection with possible left pyelonephritis. 2. Urolithiasis with a nonobstructing left renal calculus. 3. Increased WBC. 4. Anemia, normocytic. 5. History of congestive heart failure. 6. Fibromyalgia. 7. Gastroesophageal reflux disease. 8. Hypertension. 9. History of chronic liver disease. 10.History of degenerative joint disease. 11.History of bradycardia and tachycardia. 12.History of migraines. 13.History of seizure disorder. 14.History of bowel resection. 15.History of cholecystectomy. 16.History of colonic resection for malignancy. 17.History of anxiety. 18.Remote history of nicotine dependence. 19.History of THC. 20.Medical marijuana. 21.Obesity with body mass index of 49.6. 22.FULL CODE. RECOMMENDATIONS AND DISCUSSION: Recommend to continue current medications, continue symptomatic treatment. Otherwise, at this time, I would recommend continue broad spectrum, IV antibiotics, urology evaluation appreciated. Prognosis guarded because of multiple complex medical issues. Further recommendations to follow. MMODL / IJN: [id number] /
[2020-10-23] MEDS: SODIUM CHLORIDE 0.9% 1,000 ML IV SCH ×3 (02:39→12:50)
[2020-10-23] MEDS: CHOLECALCIFEROL 25 MCG (1000 IU) TABLET PO SCH (09:54)
[2020-10-23] MEDS: SUCRALFATE 1 GM TAB PO SCH ×2 (09:55→21:40)
[2020-10-23] MEDS: METOPROLOL TARTRATE 25 MG TAB PO SCH (09:55)
[2020-10-23] MEDS: MULTIVITAMINS, THERA 1 EACH TAB PO SCH (09:55)
[2020-10-23] MEDS: ASPIRIN 81 MG PO SCH (09:55)
[2020-10-23] MEDS: FAMOTIDINE 20 MG TAB PO SCH ×2 (09:55→21:40)
[2020-10-23] MEDS: FUROSEMIDE 20 MG TAB PO SCH (09:56)
[2020-10-23] MEDS: TOPIRAMATE 25 MG TAB PO SCH ×2 (09:56→21:38)
[2020-10-23] MEDS: HYDROcodone/APAP 10-325MG 1 EACH TAB PO SCH ×3 (09:57→21:39)
[2020-10-23] MEDS: LORazepam 0.5 MG TAB PO SCH ×2 (09:59→21:39)
[2020-10-23] MEDS: HEPARIN SODIUM,PORCINE/PF 5,000 UNIT/0.5 ML SYRINGE SQ SCH ×2 (10:07→21:39)
--- NOTE | 2020-10-23 21:20 | PN ---
PROGRESS NOTE DATE OF SERVICE: 10/23/2020 This 65-year-old woman was admitted with acute UTI with sepsis also had left pyelonephritis. The patient is on IV antibiotics. Urine culture showed E coli which is polysensitive rather. No chest pain. No palpitations. No fever. PHYSICAL EXAMINATION: Alert and oriented times three. Pulse 82, blood pressure 128/81, respirations 16, temperature 98.4, pulse ox 98% on room air. HEENT: Conjunctivae normal. NECK: No JVD. CARDIOVASCULAR: S1, S2 muffled. RESPIRATORY: Breath sounds diminished in the bases. A few scattered rhonchi. ABDOMEN: Soft, nontender. No mass palpable. LEGS are no edema, no swelling. NERVOUS SYSTEM: No focal deficits. LABS: WBC 12.6, hemoglobin 11.8. ASSESSMENT: 1. Acute urinary tract infection with sepsis with complicated urinary tract infection with possible left pyelonephritis. 2. Urolithiasis with nonobstructing left renal calculus. 3. Increased WBC. 4. Anemia, normocytic. 5. History of congestive heart failure. 6. Fibromyalgia. 7. Gastroesophageal reflux disease. 8. Hypertension. 9. History of chronic liver disease. 10.History of degenerative joint disease. 11.History of bradycardia and tachycardia. 12.History of migraines. 13.History of seizure disorder. 14.History of bowel resection. 15.History of cholecystectomy. 16.History of colonic resection of malignancy. 17.History of anxiety. 18.Remote history of nicotine dependence. 19.History of THC. 20.Medical marijuana. 21.Obesity with body mass index of 49.6. 22.FULL CODE. RECOMMENDATIONS AND DISCUSSION: Recommend to continue current medication, continue symptomatic treatment. Otherwise, at this time, I recommend continue with broad-spectrum IV antibiotics. Cultures are noted. Increase ambulation. Closely follow with Urology. Guarded prognosis. Further recommendations to follow. MMODL / IJN: [id number] /
[2020-10-23] MEDS: NORTRIPTYLINE 25 MG CAP PO SCH (21:39)
[2020-10-23] MEDS: lisinopriL 20 MG TAB PO SCH (21:40)
[2020-10-23] MEDS: MAGNESIUM OXIDE 400 MG TAB PO SCH (21:40)
[2020-10-24] MEDS: SODIUM CHLORIDE 0.9% 1,000 ML IV SCH ×3 (01:58→20:24)
[2020-10-24] MEDS: TOPIRAMATE 25 MG TAB PO SCH ×2 (08:36→21:41)
[2020-10-24] MEDS: SUCRALFATE 1 GM TAB PO SCH ×2 (08:36→20:21)
[2020-10-24] MEDS: CHOLECALCIFEROL 25 MCG (1000 IU) TABLET PO SCH (08:36)
[2020-10-24] MEDS: MULTIVITAMINS, THERA 1 EACH TAB PO SCH (08:36)
[2020-10-24] MEDS: ASPIRIN 81 MG PO SCH (08:36)
[2020-10-24] MEDS: LORazepam 0.5 MG TAB PO SCH ×2 (08:36→20:21)
[2020-10-24] MEDS: FUROSEMIDE 20 MG TAB PO SCH (08:37)
[2020-10-24] MEDS: METOPROLOL TARTRATE 25 MG TAB PO SCH (08:37)
[2020-10-24] MEDS: FAMOTIDINE 20 MG TAB PO SCH ×2 (08:37→20:23)
[2020-10-24] MEDS: HYDROcodone/APAP 10-325MG 1 EACH TAB PO SCH ×3 (08:37→21:41)
[2020-10-24] MEDS: HEPARIN SODIUM,PORCINE/PF 5,000 UNIT/0.5 ML SYRINGE SQ SCH ×2 (08:38→20:22)
[2020-10-24 11:12] LABS: Basophils % (A) 1 %; Eosinophils # (A) 0.2 k/uL (0-0.7); Eosinophils % (A) 4 %; HCT 34.4 % (34.0-46.0); HGB 11.5 gm/dL (11.4-16.0); Lymphocytes # (A) 1.1 k/uL (1.0-4.8); Lymphocytes % (A) 23 %; MCHC 33.3 g/dL (31.0-37.0); MCV 93.1 fL (80.0-100.0); Mean Platelet Volume 7.7; Monocytes # (A) 0.2 k/uL (0-1.0); Monocytes % (A) 5 %; Neutrophils # (A) 3.2 k/uL (1.3-7.7); Neutrophils % (A) 67 %; Platelet Count 183 k/uL (150-450); RDW 13.5 % (11.5-15.5); WBC 4.8 k/uL (3.8-10.6)
[2020-10-24 11:37] LABS: African American GFR (CKD) >90 (>60 ml/min/1.73 sqM); Anion Gap 5 mmol/L; Blood Urea Nitrogen 10 mg/dL (7-17); Calcium 8.9 mg/dL (8.4-10.2); Carbon Dioxide 25 mmol/L (22-30); Chloride 111 mmol/L (98-107); Glucose 98 mg/dL (74-99); Non-African American GFR(CKD) 83 (>60 ml/min/1.73 sqM); Potassium 4.1 mmol/L (3.5-5.1); Sodium 141 mmol/L (137-145)
--- NOTE | 2020-10-24 17:04 | PN ---
PROGRESS NOTE DATE OF SERVICE: 10/24/2020 This 65-year-old woman who was admitted with acute UTI with sepsis with complicated UTI also had E coli which is rather polysensitive grown from the culture. No chest pain. No palpitations. No fever. PHYSICAL EXAMINATION: Alert and oriented x3. Pulse is 74, blood pressure 111/66, respiration 18, temperature 98 degrees, pulse ox 94% on room air. HEENT: Conjunctivae normal. NECK: No jugular venous distention. CARDIOVASCULAR SYSTEM: S1, S2 muffled. RESPIRATORY SYSTEM: Breath sounds diminished at the bases. No rhonchi. No crackles. ABDOMEN: Soft, non-tender. No mass palpable. LABS: WBC 4.3, hemoglobin 11.5. ASSESSMENT: 1. Acute urinary tract infection with sepsis and complicated urinary tract infection with possible left pyelonephritis. 2. Urolithiasis with non-obstructing left renal calculi. 3. Escherichia coli urinary tract infection. 4. Increased white count. 5. Anemia, normocytic. 6. History of congestive heart failure; ejection fraction unknown. 7. Fibromyalgia. 8. Gastroesophageal reflux disease. 9. Hypertension. 10.History of chronic liver disease. 11.History of degenerative joint disease. 12.History of bradycardia, tachycardia. 13.History of migraines. 14.History of seizure disorder. 15.History of bowel resection. 16.History of cholecystectomy. 17.History of colon resection for malignancy. 18.History of anxiety. 19.History of nicotine dependence remotely. 20.History of tetrahydrocannabinol. 21.Medical marijuana. 22.Obesity with body mass index of 49.6. 23.FULL CODE. RECOMMENDATIONS AND DISCUSSION: I recommend to continue current medications, continue with the monitoring, symptomatic treatment. Otherwise at this time I recommend continuing the IV antibiotics. Cultures are negative. Probably discharge in the next 24-48 hours. Guarded prognosis. Further recommendations to follow. MMODL / IJN: [id number] /
[2020-10-24] MEDS: MAGNESIUM OXIDE 400 MG TAB PO SCH (20:21)
[2020-10-24] MEDS: lisinopriL 20 MG TAB PO SCH (20:21)
[2020-10-24 20:31] VITALS: RESP 16
[2020-10-24] MEDS: NORTRIPTYLINE 25 MG CAP PO SCH (21:42)
[2020-10-25 07:11] VITALS: BP 122/75; PULSE 76; TEMP 98.1
[2020-10-25] MEDS: ACETAMINOPHEN TAB 325 MG TAB PO PRN (07:14)
[2020-10-25] MEDS: MULTIVITAMINS, THERA 1 EACH TAB PO SCH (09:08)
[2020-10-25] MEDS: ASPIRIN 81 MG PO SCH (09:08)
[2020-10-25] MEDS: LORazepam 0.5 MG TAB PO SCH (09:08)
[2020-10-25] MEDS: SUCRALFATE 1 GM TAB PO SCH (09:09)
[2020-10-25] MEDS: CHOLECALCIFEROL 25 MCG (1000 IU) TABLET PO SCH (09:09)
[2020-10-25] MEDS: FUROSEMIDE 20 MG TAB PO SCH (09:09)
[2020-10-25] MEDS: TOPIRAMATE 25 MG TAB PO SCH (09:09)
[2020-10-25] MEDS: METOPROLOL TARTRATE 25 MG TAB PO SCH (09:09)
[2020-10-25] MEDS: HYDROcodone/APAP 10-325MG 1 EACH TAB PO SCH (09:10)
[2020-10-25] MEDS: HEPARIN SODIUM,PORCINE/PF 5,000 UNIT/0.5 ML SYRINGE SQ SCH (09:11)
[2020-10-25] MEDS: FAMOTIDINE 20 MG TAB PO SCH (09:11)
--- NOTE | 2020-10-25 23:12 | DS ---
DISCHARGE SUMMARY DATE OF SERVICE: October 25, 2020 FINAL DIAGNOSES: 1. Acute urinary tract infection with sepsis with complicated urinary tract infection with possible left pyelonephritis secondary to E. coli urinary tract infection present on admission. 2. Urolithiasis. Nonobstructing, left renal calculi. 3. Increased WBC. 4. Anemia, normocytic. 5. History of congestive heart failure, ejection fraction unknown. 6. Fibromyalgia. 7. Gastroesophageal reflux disease. 8. Hypertension. 9. History of chronic liver disease. 10.History of degenerative joint disease. 11.History of bradycardia, tachycardia. 12.History of migraines. 13.History of seizure disorder. 14.History of bowel resection. 15.History of cholecystectomy. 16.History of colon resection for malignancy. 17.History of anxiety. 18.History of nicotine dependence remotely. 19.History of THC. 20.Medical marijuana. 21.Obesity with body mass index of 49.6. 22.FULL CODE. DISCHARGE DISPOSITION: The patient being discharged in stable condition with guarded prognosis. HISTORY OF PRESENT ILLNESS: This 65-year-old woman with a past medical history of multiple medical problems being followed by Dr. Real Ladd in the outpatient, who was admitted with UTI with sepsis. Patient being treated empirically. Patient improved significantly. Cultures as well. Urology recommend a course of antibiotic outpatient in the follow up. White count normalized 4.8. Patient being discharged in stable condition with guarded prognosis. On exam, vitals signs stable. Cardiovascular System: S1, S2. NERVOUS SYSTEM: No focal deficits. DISCHARGE ADVICE AND MEDICATIONS: 1. Diet is cardiac diet. 2. Activity as followed up. 3. Dr. Ladd as mentioned. Follow with Urology doctor as mentioned. 4. Ativan 0.5 mg b.i.d. 5. Carafate 1 mg p.o. b.i.d. 6. Lasix 20 mg daily. 7. Lopressor 25 mg p.o. daily next. 8. Magnesium 1.55 mg p.o. q.h.s. 9. Multivitamins 1 p.o. daily. 10.Cordarone 1 tablet p.o. t.i.d. 11.Pamelor 50-20 mg q.h.s. 12.Prinivil 10 mg q.h.s. 13.Topamax 25 mg p.o. b.i.d. 14.Vitamin D3 75 mcg p.o. daily. 15.Ceftin 500 mg p.o. b.i.d. 16.Aspirin 81 mg p.o. daily. 17.Nitro 0.4 mg p.r.n. LESLEY / RODOLFO: [id number] /
== END 2020-10-25 13:09 | disposition home or self-care (01) | DRG 872 ==
LOC: EC 16:04 → 6NMEDSUR 19:31 → OBSVTOIN 10-21 10:28
PROVIDERS: ADMIT Hospitalist; ATTEND Hospitalist
DX: A41.9 Sepsis, unspecified organism (principal); K57.32 Diverticulitis of large intestine without perforation or abscess without bleeding; N12 Tubulo-interstitial nephritis, not specified as acute or chronic; Z68.42 Body mass index [BMI] 45.0-49.9, adult; R10.9 Unspecified abdominal pain; N20.0 Calculus of kidney; Z79.82 Long term (current) use of aspirin; M81.0 Age-related osteoporosis without current pathological fracture; Z85.038 Personal history of other malignant neoplasm of large intestine; Z20.822 Contact with and (suspected) exposure to COVID-19; Z85.42 Personal history of malignant neoplasm of other parts of uterus; Z90.49 Acquired absence of other specified parts of digestive tract; Z87.891 Personal history of nicotine dependence; Z87.440 Personal history of urinary (tract) infections; M79.7 Fibromyalgia; I11.0 Hypertensive heart disease with heart failure; I50.9 Heart failure, unspecified; Z80.8 Family history of malignant neoplasm of other organs or systems; Z80.1 Family history of malignant neoplasm of trachea, bronchus and lung; D64.9 Anemia, unspecified; K21.9 Gastro-esophageal reflux disease without esophagitis; G40.909 Epilepsy, unspecified, not intractable, without status epilepticus; E66.9 Obesity, unspecified; N28.1 Cyst of kidney, acquired; N30.90 Cystitis, unspecified without hematuria; G43.909 Migraine, unspecified, not intractable, without status migrainosus; B96.20 Unspecified Escherichia coli [E. coli] as the cause of diseases classified elsewhere; M19.90 Unspecified osteoarthritis, unspecified site; Z90.710 Acquired absence of both cervix and uterus
CPT/HCPCS: 36415; 74177; 80048; 80053; 81001; 83605; 85025; 87040; 87077; 87086; 87186; 87635; 96361; 96374; 96375; 99285

== ENCOUNTER 2020-12-25 04:59 | Emergency (ER) | payer MEDICARE, OTHER ==
[2020-12-25 05:16] VITALS: RESP 18
[2020-12-25] MEDS ORDERED: SODIUM CHLORIDE 0.9% 1,000 ML IV STA ×2 (05:16)
[2020-12-25] MEDS ORDERED: MORPHINE SULFATE 4 MG/ML SYRINGE IV STA (05:16)
[2020-12-25 06:08] LABS: Basophils % (A) 0 %; Eosinophils # (A) 0.2 k/uL (0-0.7); Eosinophils % (A) 2 %; HCT 40.4 % (34.0-46.0); HGB 13.7 gm/dL (11.4-16.0); Lymphocytes # (A) 1.4 k/uL (1.0-4.8); Lymphocytes % (A) 18 %; MCH 31.7 pg (25.0-35.0); MCHC 33.9 g/dL (31.0-37.0); MCV 93.6 fL (80.0-100.0); Mean Platelet Volume 7.9; Monocytes # (A) 0.3 k/uL (0-1.0); Monocytes % (A) 3 %; Neutrophils # (A) 5.9 k/uL (1.3-7.7); Neutrophils % (A) 76 %; Platelet Count 177 k/uL (150-450); RBC 4.31 m/uL (3.80-5.40); RDW 14.1 % (11.5-15.5); WBC 7.8 k/uL (3.8-10.6)
[2020-12-25 06:12] LABS: Partial Thromboplastin Time 23.4 sec (22.0-30.0); Prothrombin Time 10.3 sec (9.0-12.0)
[2020-12-25] MEDS ORDERED: KETOROLAC 15 MG/ML 1 ML VIAL IVP STA (06:21)
--- NOTE | 2020-12-25 06:21 | ED ---
Recheck HPI - General Source: patient, EMS, RN notes reviewed, old records reviewed Mode of arrival: EMS Limitations: no limitations - History of Present Illness MD Complaint: other (Recheck for kidney stone pain) -: hour(s) Returns Today for: persistent/worsening pain related to initial visit Symptoms Since Prior Visit: worsening pain Associated Symptoms: nausea, abdominal pain Treatments Prior to Arrival: Given Antibiotics on, Given Pain Meds on <Zoran Nam - Last Filed: 12/25/20 07:37> <Zoran Cheng - Last Filed: 12/25/20 08:55> - General Chief Complaint: Urogenital Stated Complaint: Possible kidney stone Time Seen by Provider: 12/25/20 05:01 - History of Present Illness Initial Comments: This is a 65-year-old female DF for evaluation patient Dese for evaluation of left flank pain patient concern for psychiatric stone history of possible kidney stone on the left side. Patient is nauseous weak not feeling well. Patient's pain is sudden onset and severe discharge today. Patient was told she had this kidney stone about 3 months ago. Is otherwise afebrile with any no dysuria. Patient states she was told she had a kidney stone she did have urinary tract infection as well (Zoran Nam) - Related Data Home Medications Medication Instructions Recorded Confirmed LORazepam [Ativan] 0.5 mg PO BID 08/29/14 10/20/20 Topiramate [Topamax] 25 mg PO BID 08/29/14 10/20/20 lisinopriL [Prinivil] 20 mg PO HS 08/29/14 10/20/20 Sucralfate [Carafate] 1 gm PO BID 04/03/15 10/20/20 Furosemide [Lasix] 20 mg PO DAILY 09/01/15 10/20/20 Nortriptyline HCl [Pamelor] 25 mg PO HS 09/29/16 10/20/20 Multivitamins, Thera [Multivitamin 1 tab PO DAILY 06/14/18 10/20/20 (formulary)] Metoprolol Tartrate [Lopressor] 25 mg PO DAILY 08/31/19 10/20/20 HYDROcodone/APAP 10-325MG [[place] 1 tab PO TID 02/04/20 10/20/20 10-325] Cholecalciferol (Vitamin D3) 75 mcg PO DAILY 10/20/20 10/20/20 [Vitamin D3 (3000 Iu)] Magnesium 250 mg PO HS 10/20/20 10/20/20 Previous Rx's Medication Instructions Recorded Aspirin EC [Ecotrin Low Dose] 81 mg PO DAILY #30 tablet. 06/15/18 Nitroglycerin Sl Tabs [Nitrostat] 0.4 mg SUBLINGUAL Q5M PRN #20 tab 06/15/18 Cefuroxime Axetil [Ceftin] 500 mg PO BID 10 Days #20 tab 10/25/20 Ketorolac [Toradol] 10 mg PO Q6HR #15 tab 12/25/20 Tamsulosin [Flomax] 0.4 mg PO DAILY #10 cap 12/25/20 Allergies Allergy/AdvReac Type Severity Reaction Status Date / Time fluoxetine Allergy WGT GAIN, Verified 12/25/20 05:16 CONFUSION, NAUSEA gabapentin Allergy Confusion,and Verified 12/25/20 05:16 weight gain methylphenidate HCl Allergy Confusion Verified 12/25/20 05:16 [From Concerta] and wt gain pregabalin [From Lyrica] Allergy Confusion,a Verified 12/25/20 05:16 ggresion Review of Systems ROS Other: All systems not noted in ROS Statement are negative. <Zoran Nam - Last Filed: 12/25/20 07:37> ROS Other: All systems not noted in ROS Statement are negative. <Zoran Cheng - Last Filed: 12/25/20 08:55> ROS Statement: Those systems with pertinent positive or pertinent negative responses have been documented in the HPI. Past Medical History Past Medical History: Cancer, Chest Pain / Angina, Heart Failure, Fibromyalgia, GERD/Reflux, Hypertension, Liver Disease, Osteoarthritis (OA), Sleep Apnea/CPAP/BIPAP Additional Past Medical History / Comment(s): HX BRADYCARDIA AND TACHYCARDIA, HX HEP C 1998. occ lower leg EDEMA. HX MIGRAINE. ONE SEIZURE 2002 (states she feels it was from prozac). OCCIPITAL NERVE DAMAGE PER MRI. HX CERVICAL/UTERINE CA; COLON CA DIAGNOSED IN JUL 2014-last chemo 03-27-15. UNABLE TO USE CPAP. osteoporosis, neuropathy. large hiatal hrenia, 9mm Kidney stone/urosepsis History of Any Multi-Drug Resistant Organisms: None Reported Past Surgical History: Bowel Resection, Cholecystectomy, Hernia Repair, Hysterectomy, Orthopedic Surgery Additional Past Surgical History / Comment(s): COLON RESECTION FOR CA . RT FOOT BONE SPUR, L KNEE MENISCUS SX, RT INDEX FINGER TENDON REPAIR. moe port placements & removed, Past Anesthesia/Blood Transfusion Reactions: Family History of Problems w/ Anesthesia Additional Past Anesthesia/Blood Transfusion Reaction / Comment(s): DAUGHTER AND MOTHER GET SEVERE PONV. Past Psychological History: Anxiety Smoking Status: Former smoker Past Alcohol Use History: None Reported Past Drug Use History: Marijuana - Past Family History Mother Family Medical History: Cancer Additional Family Medical History / Comment(s): LUNG,BONE,BRAIN Daughter(s) Family Medical History: Cancer Additional Family Medical History / Comment(s): UTERINE, CERVICAL <Zoran Nam Last Filed: 12/25/20 07:37> General Exam Limitations: no limitations General appearance: alert, in no apparent distress Head exam: Present: atraumatic, normocephalic, normal inspection Eye exam: Present: normal appearance, PERRL, EOMI. Absent: scleral icterus, conjunctival injection, periorbital swelling ENT exam: Present: normal exam, mucous membranes moist Neck exam: Present: normal inspection. Absent: tenderness, meningismus, lymphadenopathy Respiratory exam: Present: normal lung sounds bilaterally. Absent: respiratory distress, wheezes, rales, rhonchi, stridor Cardiovascular Exam: Present: regular rate, normal rhythm, normal heart sounds. Absent: systolic murmur, diastolic murmur, rubs, gallop, clicks GI/Abdominal exam: Present: soft, normal bowel sounds. Absent: distended, tenderness, guarding, rebound, rigid Extremities exam: Present: normal inspection, full ROM, normal capillary refill. Absent: tenderness, pedal edema, joint swelling, calf tenderness Back exam: Present: normal inspection Neurological exam: Present: alert, oriented X3, CN II-XII intact Psychiatric exam: Present: normal affect, normal mood Skin exam: Present: warm, dry, intact, normal color. Absent: rash <Zoran Nam - Last Filed: 12/25/20 07:37> Course <Zoran Nam - Last Filed: 12/25/20 07:37> Vital Signs 12/25/20 12/25/20 05:10 08:14 Temperature 98.4 F 97.5 F L Pulse Rate 68 62 Respiratory 18 18 Rate Blood Pressure 149/72 112/49 O2 Sat by Pulse 97 95 Oximetry - Reevaluation(s) Reevaluation #1: 12/25/20 07:38 Medical records reviewed 12/25/20 07:38 Prior inpatient hospitalizations been reviewed (Zoran Nam) Reevaluation #2: 12/25/20 07:38 Patient's pain is improved here in the ER (Zoran Nam) Medical Decision Making - Lab Data Result diagrams: 12/25/20 05:36 12/25/20 05:36 <Zoran Nam - Last Filed: 12/25/20 07:37> - Lab Data Result diagrams: 12/25/20 05:36 12/25/20 05:36 <Zoran Cheng - Last Filed: 12/25/20 08:55> - Lab Data Lab Results 12/25/20 12/25/20 12/25/20 Range/Units 05:36 05:36 05:36 WBC 7.8 (3.8-10.6) k/uL RBC 4.31 (3.80-5.40) m/uL Hgb 13.7 (11.4-16.0) gm/dL Hct 40.4 (34.0-46.0) % MCV 93.6 (80.0-100.0) fL MCH 31.7 (25.0-35.0) pg MCHC 33.9 (31.0-37.0) g/dL RDW 14.1 (11.5-15.5) % Plt Count 177 (150-450) k/uL MPV 7.9 Neutrophils % 76 % Lymphocytes % 18 % Monocytes % 3 % Eosinophils % 2 % Basophils % 0 % Neutrophils # 5.9 (1.3-7.7) k/uL Lymphocytes # 1.4 (1.0-4.8) k/uL Monocytes # 0.3 (0-1.0) k/uL Eosinophils # 0.2 (0-0.7) k/uL Basophils # 0.0 (0-0.2) k/uL PT (9.0-12.0) sec INR (<1.2) APTT (22.0-30.0) sec Sodium 141 (137-145) mmol/L Potassium 3.5 (3.5-5.1) mmol/L Chloride 111 H (98-107) mmol/L Carbon Dioxide 22 (22-30) mmol/L Anion Gap 8 mmol/L BUN 18 H (7-17) mg/dL Creatinine 0.88 (0.52-1.04) mg/dL Est GFR (CKD-EPI)AfAm 80 (>60 ml/min/1.73 sqM) Est GFR (CKD-EPI)NonAf 69 (>60 ml/min/1.73 sqM) Glucose 96 (74-99) mg/dL Plasma Lactic Acid Matt (0.7-2.0) mmol/L Calcium 9.4 (8.4-10.2) mg/dL Total Bilirubin 1.0 (0.2-1.3) mg/dL AST 33 (14-36) U/L ALT 32 (4-34) U/L Alkaline Phosphatase 69 (38-126) U/L Troponin I (0.000-0.034) ng/mL Total Protein 6.6 (6.3-8.2) g/dL Albumin 3.9 (3.5-5.0) g/dL Amylase 49 (30-110) U/L Lipase 98 (23-300) U/L Urine Color Yellow Urine Appearance Cloudy H (Clear) Urine pH 5.5 (5.0-8.0) Ur Specific Pfeifer 1.025 (1.001-1.035) Urine Protein 1+ H (Negative) Urine Glucose (UA) Negative (Negative) Urine Ketones Negative (Negative) Urine Blood Large H (Negative) Urine Nitrite Negative (Negative) Urine Bilirubin Negative (Negative) Urine Urobilinogen <2.0 (<2.0) mg/dL Ur Leukocyte Esterase Negative (Negative) Urine RBC 118 H (0-5) /hpf Urine WBC 4 (0-5) /hpf Ur Squamous Epith Cells 14 H (0-4) /hpf Calcium Oxalate Crystal Few H (None) /hpf Urine Mucus Few H (None) /hpf 12/25/20 12/25/20 12/25/20 Range/Units 05:36 05:36 05:36 WBC (3.8-10.6) k/uL RBC (3.80-5.40) m/uL Hgb (11.4-16.0) gm/dL Hct (34.0-46.0) % MCV (80.0-100.0) fL MCH (25.0-35.0) pg MCHC (31.0-37.0) g/dL RDW (11.5-15.5) % Plt Count (150-450) k/uL MPV Neutrophils % % Lymphocytes % % Monocytes % % Eosinophils % % Basophils % % Neutrophils # (1.3-7.7) k/uL Lymphocytes # (1.0-4.8) k/uL Monocytes # (0-1.0) k/uL Eosinophils # (0-0.7) k/uL Basophils # (0-0.2) k/uL PT 10.3 (9.0-12.0) sec INR 1.0 (<1.2) APTT 23.4 (22.0-30.0) sec Sodium (137-145) mmol/L Potassium (3.5-5.1) mmol/L Chloride (98-107) mmol/L Carbon Dioxide (22-30) mmol/L Anion Gap mmol/L BUN (7-17) mg/dL Creatinine (0.52-1.04) mg/dL Est GFR (CKD-EPI)AfAm (>60 ml/min/1.73 sqM) Est GFR (CKD-EPI)NonAf (>60 ml/min/1.73 sqM) Glucose (74-99) mg/dL Plasma Lactic Acid Matt 1.0 (0.7-2.0) mmol/L Calcium (8.4-10.2) mg/dL Total Bilirubin (0.2-1.3) mg/dL AST (14-36) U/L ALT (4-34) U/L Alkaline Phosphatase (38-126) U/L Troponin I <0.012 (0.000-0.034) ng/mL Total Protein (6.3-8.2) g/dL Albumin (3.5-5.0) g/dL Amylase (30-110) U/L Lipase (23-300) U/L Urine Color Urine Appearance (Clear) Urine pH (5.0-8.0) Ur Specific Pfeifer (1.001-1.035) Urine Protein (Negative) Urine Glucose (UA) (Negative) Urine Ketones (Negative) Urine Blood (Negative) Urine Nitrite (Negative) Urine Bilirubin (Negative) Urine Urobilinogen (<2.0) mg/dL Ur Leukocyte Esterase (Negative) Urine RBC (0-5) /hpf Urine WBC (0-5) /hpf Ur Squamous Epith Cells (0-4) /hpf Calcium Oxalate Crystal (None) /hpf Urine Mucus (None) /hpf Disposition <Zoran Nam - Last Filed: 12/25/20 07:37> Is patient prescribed a controlled substance at d/c from ED?: No Time of Disposition: 08:48 <Zoran Cheng - Last Filed: 12/25/20 08:55> Clinical Impression: Kidney stone on left side Disposition: HOME SELF-CARE Condition: Good Instructions (If sedation given, give patient instructions): Kidney Stones (ED) Prescriptions: Tamsulosin [Flomax] 0.4 mg PO DAILY #10 cap Ketorolac [Toradol] 10 mg PO Q6HR #15 tab Referrals: Flaquito Sheppard MD [STAFF PHYSICIAN] - 1-2 days
[2020-12-25 06:24] LABS: Calcium 9.4 mg/dL (8.4-10.2); Potassium 3.5 mmol/L (3.5-5.1)
[2020-12-25 06:25] LABS: Albumin 3.9 g/dL (3.5-5.0); Total Protein 6.6 g/dL (6.3-8.2)
--- NOTE | 2020-12-25 06:58 | XR ---
EXAM: XR Abdomen, 2 Views CLINICAL HISTORY: ITS.REASON XR Reason: abdominal pain TECHNIQUE: Frontal view of the abdomen/pelvis with upright view of the abdomen. COMPARISON: No relevant prior studies available. FINDINGS: Lower thorax: Mild streaky density in the visualized left lung base. Intraperitoneal space: No free air. Gastrointestinal tract: Nonspecific bowel gas pattern with mild retained stool. Organs: Surgical clips in the right upper quadrant, presumably from prior cholecystectomy. Renal shadows, partly obscured by overlying bowel gas and stool. Bones/joints: Possible faint calcification projecting over the left lateral aspect of L3, 4 measuring approximately 4 mm. This may reflect bowel content versus calculus near the left proximal ureter/UVJ. Mild levoscoliosis. Mild degenerative changes in the spine. IMPRESSION: 1. Possible bowel content versus calculus near the left UVJ/proximal ureter. 2. Follow-up noncontrast CT of abdomen and pelvis as indicated for further clarification. 3. Overlying bowel gas and stool limit evaluation for renal calculus. No definite evidence for radiopaque renal calculus. 4. Nonspecific bowel gas pattern with mild retained stool. 5. Status post cholecystectomy
--- NOTE | 2020-12-25 08:07 | CT ---
EXAMINATION TYPE: CT abdomen pelvis wo con DATE OF EXAM: 12/25/2020 COMPARISON: 10/20/2020 INDICATION: Rt sided pain, tech history is left-sided pain DLP: 1765 mGycm, Automated exposure control for dose reduction was used. CONTRAST: 0 mL of Isovue 300. Study performed without Oral Contrast TECHNIQUE: Axial images were obtained from above the diaphragm to the pubic rami in the axial plane a t 5 mm thick sections. Reconstructed images are reviewed on the computer in the coronal plane. FINDINGS: Limited CT sections are obtained the lung bases. The lung bases are clear. CT ABDOMEN: Liver: Normal Spleen: Normal Pancreas: Normal Adrenal glands: The adrenal glands are normal. Gallbladder: Surgically absente Kidneys: No masses are evident. There is an 8.2 cm cyst superior pole right kidney measuring 10 Houns field units. There is a 0.7 x 0.5 cm calcification at the left renal pelvis. Mild left hydronephrosi s present. Aorta: Vascular calcification is within the aorta. Inferior vena cava: Normal. CT PELVIS: Loops of bowel within the abdomen and pelvis are normal. The studies without oral contrast limiti ng bowel evaluation. Postsurgical changes are in the left upper quadrant. Diverticular changes are wi thin the sigmoid colon Appendix: Normal as visualized. Urinary bladder: Decompressed but otherwise unremarkable Genitourinary structures: Uterus and ovaries are not identified. Osseous structures: No suspicious lytic or sclerotic lesions. Some facet degenerative changes within the lumbar spine. IMPRESSIONS: 1. 0.7 x 0.5 cm mildly obstructing left renal pelvic stone with mild left hydronephrosis. 2. Right renal cyst
[2020-12-25 08:17] VITALS: PULSE 62
[2020-12-25 08:41] LABS: Appearance,Urine Cloudy (Clear); Bilirubin,Urine Negative (Negative); Blood,Urine Large (Negative); Calcium Oxalate Crystals,Urine Few /hpf; Color,Urine Yellow; Glucose,Urine (UA) Negative (Negative); Ketones,Urine Negative (Negative); Leukocyte Esterase,Urine Negative (Negative); Mucus,Urine Few /hpf; Nitrite,Urine Negative (Negative); PH, Urine 5.5 (5.0-8.0); Protein,Urine 1+ (Negative); RBC,Urine 118 /hpf (0-5); Specific Gravity,Urine 1.025 (1.001-1.035); Squamous Epithelial Cell,Urine 14 /hpf (0-4); Urobilinogen,Urine <2.0 mg/dL (<2.0); WBC,Urine 4 /hpf (0-5)
[2020-12-25 09:18] VITALS: BP 129/77; TEMP 98
== END 2020-12-25 09:16 | disposition home or self-care (01) ==
LOC: EC 04:59
DX: N13.2 Hydronephrosis with renal and ureteral calculous obstruction (principal); I11.0 Hypertensive heart disease with heart failure; I50.9 Heart failure, unspecified; M19.90 Unspecified osteoarthritis, unspecified site; K21.9 Gastro-esophageal reflux disease without esophagitis; M79.7 Fibromyalgia; G47.30 Sleep apnea, unspecified; F41.9 Anxiety disorder, unspecified; F12.90 Cannabis use, unspecified, uncomplicated; Z87.891 Personal history of nicotine dependence; Z79.82 Long term (current) use of aspirin; Z90.49 Acquired absence of other specified parts of digestive tract
CPT/HCPCS: 36415; 80053; 82150; 83605; 83690; 84484; 85025; 85610; 85730; 81001; 74018; 74176; 99285; 96374; 96361; J2270

== ENCOUNTER 2021-05-18 07:35 | Day surgery (SDC) | payer MEDICARE, OTHER ==
[2021-05-15 08:36] VITALS: BMI 45.7
--- NOTE | 2021-05-18 07:40 | P.GSHP ---
History of Present Illness H&P Date: 05/18/21 CHIEF COMPLAINT: Gastrointestinal bleeding HISTORY OF PRESENT ILLNESS: The patient is a 65-year-old female who presents with gastrointestinal bleeding for over 1 month. She has history of colon cancer Upper and lower endoscopy were offered for further evaluation and management. PAST MEDICAL HISTORY: Please see list. PAST SURGICAL HISTORY: Please see list. MEDICATIONS: Please see list. ALLERGIES: Please see list. SOCIAL HISTORY: No illicit drug use FAMILY HISTORY: No reports of Crohn disease or ulcerative colitis. REVIEW OF ORGAN SYSTEMS: CONSTITUTIONAL: No reports of fevers or chills. GI: Has blood in stools. PHYSICAL EXAM: VITAL SIGNS: Stable GENERAL: Well-developed pleasant in no acute distress. HEENT: No scleral icterus. Extraocular movements grossly intact. Moist buccal mucosa. NECK: Supple without lymphadenopathy. CHEST: Unlabored respirations. Equal bilateral excursions. CARDIOVASCULAR: Regular rate and rhythm. Distal 2+ pulses. ABDOMEN: Soft, nondistended. MUSCULOSKELETAL: No clubbing, cyanosis, or edema. ASSESSMENT: 1. Gastrointestinal bleeding 2. History of colon cancer PLAN: 1. Recommend proceeding with an upper and lower endoscopy Past Medical History Past Medical History: Cancer, Chest Pain / Angina, Heart Failure, Fibromyalgia, GERD/Reflux, Hypertension, Liver Disease, Osteoarthritis (OA), Sleep Apnea/CPAP/BIPAP Additional Past Medical History / Comment(s): HX BRADYCARDIA AND TACHYCARDIA, HX HEP C 1998. occ lower moe leg EDEMA. HX MIGRAINE. ONE SEIZURE 2002 (states she feels it was from prozac). OCCIPITAL NERVE DAMAGE PER MRI. HX CERVICAL/UTERINE CA; COLON CA DIAGNOSED IN JUL 2014-last chemo 03-27-15. UNABLE TO USE CPAP. osteoporosis, neuropathy. hiatal hernia, hx Kidney stone/UTI/urosepsis, blood in stool in last 6 weeks History of Any Multi-Drug Resistant Organisms: None Reported Past Surgical History: Bowel Resection, Cholecystectomy, Hernia Repair, Hysterectomy, Orthopedic Surgery Additional Past Surgical History / Comment(s): COLON RESECTION . RT FOOT BONE SPUR, L KNEE MENISCUS SX, RT INDEX FINGER TENDON REPAIR. moe port placements & removed, Past Anesthesia/Blood Transfusion Reactions: Family History of Problems w/ Anesthesia Additional Past Anesthesia/Blood Transfusion Reaction / Comment(s): DAUGHTER AND MOTHER GET SEVERE PONV. Smoking Status: Former smoker - Past Family History Mother Family Medical History: Cancer Additional Family Medical History / Comment(s): LUNG,BONE,BRAIN Daughter(s) Family Medical History: Cancer Additional Family Medical History / Comment(s): UTERINE, CERVICAL Medications and Allergies Home Medications Medication Instructions Recorded Confirmed Type LORazepam [Ativan] 0.5 mg PO BID 08/29/14 05/15/21 History Topiramate [Topamax] 25 mg PO BID 08/29/14 05/15/21 History lisinopriL [Prinivil] 20 mg PO HS 08/29/14 05/15/21 History Sucralfate [Carafate] 1 gm PO BID 04/03/15 05/15/21 History Furosemide [Lasix] 20 mg PO DAILY 09/01/15 05/15/21 History Nortriptyline HCl [Pamelor] 25 mg PO HS 09/29/16 05/15/21 History Multivitamins, Thera [Multivitamin 1 tab PO DAILY 06/14/18 05/15/21 History (formulary)] Aspirin EC [Ecotrin Low Dose] 81 mg PO DAILY #30 tablet. 06/15/18 05/15/21 Rx Metoprolol Tartrate [Lopressor] 25 mg PO DAILY 08/31/19 05/15/21 History Cholecalciferol (Vitamin D3) 75 mcg PO DAILY 10/20/20 05/15/21 History [Vitamin D3 (3000 Iu)] Magnesium 250 mg PO HS 10/20/20 05/15/21 History Ketorolac [Toradol] 10 mg PO Q6HR PRN 03/11/21 05/15/21 History Tamsulosin [Flomax] 0.4 mg PO DAILY PRN 03/11/21 05/15/21 History Hydrocodone/Acetaminophen [[place] 1 tab PO TID 05/15/21 05/15/21 History 7.5-325] Melatonin 3 mg PO HS 05/15/21 05/15/21 History Allergies Allergy/AdvReac Type Severity Reaction Status Date / Time fluoxetine Allergy WGT GAIN, Verified 05/15/21 08:19 CONFUSION, NAUSEA gabapentin Allergy Confusion,and Verified 05/15/21 08:19 weight gain methylphenidate HCl Allergy Confusion Verified 05/15/21 08:19 [From Concerta] and wt gain pregabalin [From Lyrica] Allergy Confusion,a Verified 05/15/21 08:19 ggresion
[2021-05-18 08:07] VITALS: TEMP 97.1
[2021-05-18] MEDS ORDERED: LIDOCAINE 1% (10MG/ML) FOR IV START INTRADERMA ONE (08:15)
--- NOTE | 2021-05-18 08:59 | P.PCN ---
Date of Procedure: 05/18/21 Description of Procedure: PREOPERATIVE DIAGNOSIS: History of gastrointestinal bleeding Morbid obesity due to excess calories, BMI 45.7 POSTOPERATIVE DIAGNOSIS: Morbid obesity. Gastritis with recent bleeding Gastroesophageal reflux disease. Diaphragmatic hiatal hernia Candidiasis esophagitis OPERATION: Esophagogastroduodenoscopy with biopsies along antrum and esophagus SURGEON: Colleen Mackenzie MD ANESTHESIA: MAC. INDICATIONS: The patient is a 65-year-old female who presents with a history of reflux disease Including gastrointestinal bleeding. Benefits and risks of the procedure were described. Informed consent was obtained. DESCRIPTION: The patient was brought into the endoscopy suite and laid in the left lateral decubitus position. An Olympus gastroscope was passed along the posterior oropharynx down to the distal esophagus where the squamocolumnar junction was encountered at 36 cm from the incisors. The stomach was entered and no bile reflux was found. Additional findings are listed below. Biopsies with cold forceps were obtained of the antrum. The first through third portion of the duodenum was examined and unremarkable. Retroflexion of the scope confirmed Hill grade 3 lower esophageal valve. The squamocolumnar junction demonstrated LA grade B erosive esophagitis. The stomach was desufflated. The patient tolerated the procedure well. FINDINGS: Squamocolumnar junction 36 cm from the incisors. Diaphragmatic hiatus at 37 cm. Hiatal hernia, 1 cm Hill grade 3 lower esophageal valve. LA grade B erosive esophagitis. No active duodenitis. Chronic gastritis with recent bleed RECOMMENDATIONS: Upper endoscopy as needed. Discontinue NSAIDs
--- NOTE | 2021-05-18 09:07 | P.PCN ---
Date of Procedure: 05/18/21 Description of Procedure: PREOPERATIVE DIAGNOSIS: Gastrointestinal bleeding Personal history of colon cancer POSTOPERATIVE DIAGNOSIS: Gastrointestinal bleeding Personal history of colon cancer Arteriovenous malformation, cecum, ascending colon Sigmoid diverticulosis Sigmoid colon adenoma OPERATION: Colonoscopy to the ileocecal valve and appendiceal orifice, cecum Colonoscopy with ablation using ERBIE of arteriovenous malformation, cecum, ascending colon Colonoscopy with cold forceps biopsyAt sigmoid colon SURGEON: Colleen Mackenzie MD. ANESTHESIA: MAC. INDICATIONS: The patient is an 65-year-old female who presents with personal history of colon cancer presents for gastrointestinal bleeding. Benefits and risks were described and informed consent was obtained. DESCRIPTION OF PROCEDURE: The patient had undergone Sutab prep. The patient had been brought into the operating room and laid in the left lateral decubitus position. After adequate intravenous sedation, the rectum was examined with 2% lidocaine jelly. External hemorrhoids were encountered. The rectal tone was within normal limits. No lesions were palpated in the rectal vault. An Olympus colonoscope was advanced until the cecum, ileocecal valve and appendiceal orifice were clearly viewed. The prep was excellent. Arteriovenous malformation of 5 mm was found along the cecum near the appendiceal orifice including 3 other lesions of the proximal ascending colon all ablated using ERBIE. Sigmoid diverticulosis with resolving diverticulitis was encountered. Colonic polyps were found and removed. No evidence of focal colitis was found. Retroflexion of the scope demonstrated grade 2 internal hemorrhoids without active bleeding or inflammation. The colon was desufflated. The patient had tolerated the procedure well. Withdrawal time was over 6 minutes. FINDINGS: Aronchick preparation quality scale 1 (1-5) Internal hemorrhoids, grade 2 with recent inflammation and bleeding External hemorrhoids, grade 2. Arteriovenous malformation of 5 mm was found along the cecum near the appendiceal orifice including 3 other lesions of the proximal ascending colon all ablated using ERBIE Sigmoid diverticulosisWith mild diverticulitis Removal of 1 polyps: - Cold forceps biopsy at 25 cm from the anal verge, 4 mm polyp, sigmoid colon RECOMMENDATIONS: Given severity of tubular adenomas, recommend repeat colonoscopy 1 year, 2021 Plan - Discharge Summary New Discharge Prescriptions: Continue Topiramate [Topamax] 25 mg PO BID lisinopriL [Prinivil] 20 mg PO HS LORazepam [Ativan] 0.5 mg PO BID Sucralfate [Carafate] 1 gm PO BID Furosemide [Lasix] 20 mg PO DAILY Nortriptyline HCl [Pamelor] 25 mg PO HS Multivitamins, Thera [Multivitamin (formulary)] 1 tab PO DAILY Aspirin EC [Ecotrin Low Dose] 81 mg PO DAILY #30 tablet. Metoprolol Tartrate [Lopressor] 25 mg PO DAILY Magnesium 250 mg PO HS Hydrocodone/Acetaminophen [[place] 7.5-325] 1 tab PO TID Melatonin 3 mg PO HS Cholecalciferol (Vitamin D3) [Vitamin D3 (3000 Iu)] 75 mcg PO DAILY Tamsulosin [Flomax] 0.4 mg PO DAILY PRN PRN Reason: kidney stones Discontinued Ketorolac [Toradol] 10 mg PO Q6HR PRN PRN Reason: kidney stones Discharge Medication List LORazepam [Ativan] 0.5 mg PO BID 08/29/14 [History] Topiramate [Topamax] 25 mg PO BID 08/29/14 [History] lisinopriL [Prinivil] 20 mg PO HS 08/29/14 [History] Sucralfate [Carafate] 1 gm PO BID 04/03/15 [History] Furosemide [Lasix] 20 mg PO DAILY 09/01/15 [History] Nortriptyline HCl [Pamelor] 25 mg PO HS 09/29/16 [History] Multivitamins, Thera [Multivitamin (formulary)] 1 tab PO DAILY 06/14/18 [History] Aspirin EC [Ecotrin Low Dose] 81 mg PO DAILY #30 tablet. 06/15/18 [Rx] Metoprolol Tartrate [Lopressor] 25 mg PO DAILY 08/31/19 [History] Cholecalciferol (Vitamin D3) [Vitamin D3 (3000 Iu)] 75 mcg PO DAILY 10/20/20 [History] Magnesium 250 mg PO HS 10/20/20 [History] Tamsulosin [Flomax] 0.4 mg PO DAILY PRN 03/11/21 [History] Hydrocodone/Acetaminophen [[place] 7.5-325] 1 tab PO TID 05/15/21 [History] Melatonin 3 mg PO HS 05/15/21 [History] Follow up Appointment(s)/Referral(s): Colleen Mackenzie MD [STAFF PHYSICIAN] - 05/26/21 Patient Instructions/Handouts: *[facility] - (Anesthesia) Endoscopy Discharge Instructions, Diverticulosis (GEN), Arteriovenous Malformation (DC), Colorectal Polyps (DC), Diverticulosis Diet (GEN), Colonoscopy (DC), Upper Endoscopy (DC) Activity/Diet/Wound Care/Special Instructions: Repeat colonoscopy one year, 2021 Discharge Disposition: HOME SELF-CARE
[2021-05-18 09:15] VITALS: BP 120/62; PULSE 82; RESP 18
== END 2021-05-18 09:29 | disposition home or self-care (01) ==
LOC: ORWHC2ENDO 07:35
PROVIDERS: ATTEND Surgery Plastic and Reconstructive Surgery
DX: K29.50 Unspecified chronic gastritis without bleeding (principal); Z85.038 Personal history of other malignant neoplasm of large intestine; Q27.33 Arteriovenous malformation of digestive system vessel; K57.90 Diverticulosis of intestine, part unspecified, without perforation or abscess without bleeding; Z88.8 Allergy status to other drugs, medicaments and biological substances; M19.90 Unspecified osteoarthritis, unspecified site; G47.33 Obstructive sleep apnea (adult) (pediatric); I11.0 Hypertensive heart disease with heart failure; I50.9 Heart failure, unspecified; I25.10 Atherosclerotic heart disease of native coronary artery without angina pectoris; R00.1 Bradycardia, unspecified; Z79.899 Other long term (current) drug therapy; Z79.82 Long term (current) use of aspirin; Z86.19 Personal history of other infectious and parasitic diseases; K63.5 Polyp of colon; K21.9 Gastro-esophageal reflux disease without esophagitis; M79.7 Fibromyalgia; Z87.891 Personal history of nicotine dependence; Z80.1 Family history of malignant neoplasm of trachea, bronchus and lung; Z80.8 Family history of malignant neoplasm of other organs or systems
CPT/HCPCS: 43239; 45380; 45388; 88305; 88312; 88342

== ENCOUNTER → 2021-05-19 | Outpatient (CLI) | payer MEDICARE, OTHER ==
--- NOTE | 2021-05-20 08:07 | CT ---
EXAMINATION TYPE: CT abdomen pelvis w con DATE OF EXAM: 05/19/2021 COMPARISON: 12/25/2020 HISTORY: Rectal bleeding, hx colon ca CT DLP: 2354.80 mGycm CONTRAST: CT scan of the abdomen and pelvis is performed with Oral Contrast and with IV Contrast, patient injec ben with 100 mL of Isovue 300. FINDINGS: LUNG BASES-: No visible nodule. No infiltrate. LIVER/GB: No calcified gallstones. No space occupying hepatic lesion. Biliary tree is of normal ca liber. PANCREAS: No inflammation. No distinct mass. SPLEEN: No splenic enlargement. No lesion seen. ADRENALS: No nodule. No thickening. KIDNEYS/BLADDER: No hydronephrosis. No nephrolithiasis. Large exophytic cyst upper pole right kidne y. Urinary bladder grossly unremarkable. BOWEL: Normal appendix. Normal bowel caliber. No inflammation. Mild wall thickening sigmoid colon w ith diverticulosis. Findings could be related to poor distention. No bowel obstruction present. GENITAL ORGANS: No gross abnormality. LYMPH NODES: No greater than 1cm abdominal or pelvic lymph nodes are appreciated. AORTA: No significant abnormality. OSSEOUS STRUCTURES: No significant abnormality is seen. OTHER: No significant additional abnormality is seen. IMPRESSION: 1. Mild wall thickening sigmoid colon with diverticulosis. Findings could be related to poor distenti on. No bowel obstruction present.
== END | disposition home or self-care (01) ==
LOC: RADCTMAIN 16:23
PROVIDERS: ATTEND Internal Medicine Hematology & Oncology
DX: K57.31 Diverticulosis of large intestine without perforation or abscess with bleeding (principal); C18.4 Malignant neoplasm of transverse colon
CPT/HCPCS: 82565; 84520; 74177; 36415; Q9967

== ENCOUNTER → 2021-07-09 | Outpatient (CLI) | payer MEDICARE, OTHER ==
[2021-07-09 21:00] LABS: C Reactive Protein <0.30 mg/dL (0.00-0.80); Rheumatoid Factor, Qnt <10 IU/mL (0-15)
[2021-07-10 20:46] LABS: Anti-DNA, DS unit <1.0 IU/mL; Anti-Smith Ab Interp NEGATIVE (NEGATIVE); Cyclic Citrull Pep IgG Unit <0.5 U/mL; Cyclic Citrullinated Pep IgG NEGATIVE (NEGATIVE); DNA Double-Stranded NEGATIVE (NEGATIVE); JO-1 IgG Antibody <0.2 AI; Scleroderma SC-70 Ab <0.2 AI
== END | disposition home or self-care (01) ==
LOC: LABWHC1 12:45
PROVIDERS: ATTEND Nurse Practitioner Family
DX: M25.50 Pain in unspecified joint (principal)
CPT/HCPCS: 36415; 83516; 86038; 86140; 86200; 86225; 86235; 86431

== ENCOUNTER → 2021-07-30 | Outpatient (CLI) | payer MEDICARE, OTHER ==
[~2021-07-30] MED LIST changes: +IODINE/POTASS IOD (LUGOLS) BOTTLE TOPICAL ONE; -LACTATED RINGERS 1,000 ML IV SCH
--- NOTE | 2021-08-02 08:40 | NM ---
EXAMINATION TYPE: NM DatScan Brain SPECT DATE OF EXAM: 07/30/2021 COMPARISON: NONE HISTORY: Tremor. TECHNIQUE: 10 drops of Lugol's solution was administered 1 hour prior to injection as a thyroid bloc luzmaria agent. After the administration of 4.3 mCi I-123 Ioflupane DaTscan. Images obtained [address] injection. SPECT images of the brain were acquired with axial and coronal reconstructions. FINDINGS: The DaTSCAN demonstrates posterior right-sided blunting or reduced uptake of tracer to the right side d striatum. 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 However, given the asymmetry of the two sides, an MRI is recommended to ensure that this appearance i s not due to a vascular etiology affecting the right sided putamen or the right michael-striatal pathwa ys.
== END | disposition home or self-care (01) ==
LOC: RADNMMAIN 09:56
PROVIDERS: ATTEND Psychiatry & Neurology Neurology
DX: G25.0 Essential tremor (principal)
CPT/HCPCS: 78803; A9584

== ENCOUNTER → 2021-08-07 | Outpatient (CLI) | payer MEDICARE, OTHER ==
--- NOTE | 2021-08-10 13:49 | MM ---
Reason for exam: screening (asymptomatic). Last mammogram was performed 2 years and 2 months ago. History: Patient is postmenopausal, has history of other cancer at age 39, history of endometrial cancer, and history of colon cancer. Family history of breast cancer in aunt at age 50. Physical Findings: A clinical breast exam by your physician is recommended on an annual basis and results should be correlated with mammographic findings. MG 3D Screening Mammo W/Cad Bilateral CC, MLO, and XCCL view(s) were taken. Prior study comparison: May 29, 2019, right breast MG 3d work up w/cad RT. May 15, 2019, bilateral MG 3d screening mammo w/cad. There are scattered fibroglandular densities. No significant changes when compared with prior studies. ASSESSMENT: Benign, BI-RAD 2 RECOMMENDATION: Routine screening mammogram of both breasts in 1 year.
== END | disposition home or self-care (01) ==
LOC: RADMAMWWP 12:34
PROVIDERS: ATTEND Internal Medicine
DX: Z12.31 Encounter for screening mammogram for malignant neoplasm of breast (principal); Z78.0 Asymptomatic menopausal state; Z80.3 Family history of malignant neoplasm of breast
CPT/HCPCS: 77063; 77067

== ENCOUNTER → 2022-11-18 | Outpatient (CLI) | payer MEDICARE, OTHER ==
--- NOTE | 2022-11-19 14:51 | MM ---
Reason for Exam: Screening (asymptomatic). Last mammogram was performed 1 year(s) and 3 month(s) ago. Patient History: Menarche at age 11. First Full-Term at age 16. Hysterectomy at age 39. Postmenopausal. Other cancer, age 39. Colorectal cancer. Endometrial cancer. Maternal aunt had breast cancer, age 50. Risk Values: Shobha 5 year model risk: 1.2%. NCI Lifetime model risk: 4.0%. Prior Study Comparison: 05/15/2019 Bilateral Screening Mammogram, [facility]. 05/29/2019 Right Diagnostic Mammogram, [facility]. 08/07/2021 Bilateral Screening Mammogram, [facility]. Tissue Density: There are scattered fibroglandular densities. Findings: Analyzed By CAD. There is no suspicious group of microcalcifications or new suspicious mass in either breast. Overall Assessment: Negative, BI-RAD 1 Management: Screening Mammogram of both breasts in 1 year. . Patient should continue monthly self-breast exams. A clinical breast exam by your physician is recommended on an annual basis. This exam should not preclude additional follow-up of suspicious palpable abnormalities. Note on Shobha scores and lifetime risk: 1. A Shobha score greater than 3% is considered moderate risk. If this is the case, consider specialist referral to assess eligibility for a risk reducing agent. 2. If overall lifetime risk for the development of breast cancer is 20% or higher, the patient may qualify for future screening with alternating mammogram and breast MRI. Electronically signed and approved by: Vonnie Erickson M.D. Radiologist
== END | disposition home or self-care (01) ==
LOC: RADMAMWWP 13:17
PROVIDERS: ATTEND Student in an Organized Health Care Education/Training Program
DX: Z12.31 Encounter for screening mammogram for malignant neoplasm of breast (principal); Z78.0 Asymptomatic menopausal state; Z80.3 Family history of malignant neoplasm of breast
CPT/HCPCS: 77063; 77067

== ENCOUNTER → 2024-10-24 | Outpatient (CLI) | payer MEDICARE, OTHER ==
[2024-10-24 15:13] LABS: African American GFR (CKD) 74 (>60 ml/min/1.73 sqM); Blood Urea Nitrogen 19 mg/dL (7-17); Non-African American GFR(CKD) 64 (>60 ml/min/1.73 sqM)
--- NOTE | 2024-10-24 16:12 | CT ---
EXAMINATION TYPE: CT chest w con DATE OF EXAM: 10/24/2024 3:36 PM COMPARISON: 04/28/2018 CLINICAL INDICATION: Female, 69 years old with history of R91.1 Solitary pulmonary nodule; PHH, f/u n odules TECHNIQUE: Multiple axial images were obtained through the chest. Sagittal and coronal reformats were created for review. MIP was performed on a separate workstation. Contrast used:100 ml mL of Isovue 300 with IV Contrast ( CT DLP: 629 mGycm, Automated exposure control for dose reduction was used. FINDINGS: The heart is normal size without pericardial effusion. No significant coronary artery calcifications are seen. Aorta normal caliber with conventional arterial sobriety anatomy. Enlarged caliber main right and left pulmonary arteries measuring up to 3.1 cm suggest underlying pul monary arterial hypertension. No thoracic lymphadenopathy by CT size criteria. Some minimal emphysematous changes noted. No consolidation or pleural effusion. Benign lingular calcified granuloma. Stable 5 mm right middle lobe pulmonary nodule, unchanged from 2013 compatible with a benign etiology . 4 mm subpleural pulmonary nodule posterior right lower lobe, axial image 34 also unchanged. Visualized upper abdomen shows low attenuation of the hepatic parenchyma. In upper pole right renal c ortical cyst measures 4.6 cm, decreased in size from 8.0 cm, previously. Postsurgical change of previ ous cholecystectomy. Bones: DISH throughout the thoracic spine. Degenerative change sternoclavicular joints. IMPRESSION: 1. Large caliber to the central pulmonary artery may be seen with pulmonary arterial hypertension. Cl inically correlate. 2. Minimal emphysematous changes noted. 3. A few stable benign pulmonary nodules measuring up to 5 mm. 4. Incidental hepatic steatosis. [facility], Workstation: [place], 10/24/2024 4:10 PM
== END | disposition home or self-care (01) ==
LOC: RADCTMAIN 13:49
PROVIDERS: ATTEND Internal Medicine Critical Care Medicine
DX: R91.1 Solitary pulmonary nodule (principal); J43.9 Emphysema, unspecified; R91.8 Other nonspecific abnormal finding of lung field
CPT/HCPCS: 82565; 84520; 71260; 36415; Q9967